=== PATIENT | male | born 1955 | race Caucasian/White ===

== ENCOUNTER → 2016-12-25 | Outpatient (CLI) | payer OTHER ==
[~2016-12-25] MED LIST: ASPI-435 PO; ATOR-26 PO; AVD5 PO; CEPH500C PO; CHOL2000 PO; CYM30 PO; GABA1CAP4 PO; GLCSR10 PO; INSDGIPEN SC; INSUINJ14 SC; INSUINJ4 SC; MDR4 PO; MELO15TA4 PO; METF750T PO; METO1TAB69 PO; NRT/50 PO; NRT25 PO; TICA1TAB PO; TRAM-10 PO; UBIQ1CAP8 PO; VALS-59 PO
--- NOTE | 2016-12-25 15:52 | DIAGNOSTIC IMAGING REPORT ---
RIGHT HAND MIN 3 VIEWS ROUTINE CLINICAL HISTORY: Polyarthritis. COMPARISON: None. DISCUSSION: No fractures are visualized. There are no erosive or destructive changes. There are minor osteoarthritic type changes. There is a 3 mm calcification located at the level of the distal radial ulnar joint. IMPRESSION: Minor degenerative change. No evidence of erosive disease. No acute fractures. Electronically signed by: Dhruv Hernandez M.D. 12/25/2016 3:51 PM Dictated Date/Time: 12/25/2016 3:50 PM
--- NOTE | 2016-12-25 15:53 | DIAGNOSTIC IMAGING REPORT ---
LEFT HAND MIN 3 VIEWS ROUTINE CLINICAL HISTORY: Polyarthritis COMPARISON: None. DISCUSSION: No fractures are visualized. The bony mineralization appears normal. There are minor degenerative changes. There is no erosive disease. IMPRESSION: No acute fractures. No evidence of erosive disease. Minor degenerative changes. Electronically signed by: Dhruv Hernandez M.D. 12/25/2016 3:52 PM Dictated Date/Time: 12/25/2016 3:51 PM
[2016-12-25 16:47] LABS: HEMATOCRIT 46.1 % (42-52); MEAN CELL VOLUME 91.8 fL (80-100); MEAN CORPUSCULAR HEMOGLOBIN 30.3 pg (25-34); MEAN PLATELET VOLUME 10.3 fL (7.4-10.4); PLATELET COUNT 285 K/uL (130-400); RED BLOOD COUNT 5.02 M/uL (4.7-6.1); WHITE BLOOD COUNT 12.18 K/uL (4.8-10.8)
[2016-12-25 17:28] LABS: BASO % 0.2 %; BASO ABS # 0.02 K/uL (0-0.2); BLOOD UREA NITROGEN 17 mg/dl (7-18); COMPLETE YES; EOS % 0.5 %; GIANT PLATELETS 1+; GLUCOSE 181 mg/dl (70-99); IG% 0.3 %; LYMPH % 6.9 %; LYMPH ABS # 0.84 K/uL (1.2-3.4); MONO % 5.3 %; NEUT % 86.8 %; TOXIC GRANULATION 1+
[2016-12-25 17:29] LABS: AST/SGOT 14 U/L (15-37); BUN/CREATININE RATIO 18.5 (10-20); CALCIUM 9.3 mg/dl (8.5-10.1); CARBON DIOXIDE 30 mmol/L (21-32); CHLORIDE 102 mmol/L (98-107); CREATININE 0.89 mg/dl (0.60-1.40); POTASSIUM 4.2 mmol/L (3.5-5.1); SODIUM 139 mmol/L (136-145)
[2016-12-25 17:32] LABS: ALB/GLOB RATIO 1.1 (0.9-2); ALKALINE PHOSPHATASE 85 U/L (45-117); ALT/SGPT 28 U/L (12-78); RHEUMATOID FACTOR < 10.0 U/mL (0-15); TOTAL IRON BINDING CAPACITY 408 mcg/dl (250-450)
[2016-12-26 06:35] LABS: ESTIMATED AVERAGE GLUCOSE 223 mg/dl; HA1C FLAG Normal (Normal)
[2016-12-31 04:48] LABS: ALBUMIN 3.9 G/DL (3.8-4.8); ANTI-CENTROMERE AB <1.0 NEG AI (<1.0 NEG); ANTI-SS-A <1.0 NEG AI (<1.0 NEG); ANTI-SS-B <1.0 NEG AI (<1.0 NEG); CYCLIC CITRULLINATED PEPT IGG <16 UNITS (<20); DNA ds CRITHIDIA NEGATIVE (NEGATIVE); GAMMA GLOBULIN 0.6 G/DL (0.8-1.7); PARVOVIRUS IgG INDEX 2.9 (<0.9); PARVOVIRUS IgM INDEX 0.1 (<0.9); Sm Antibody <1.0 NEG AI (<1.0 NEG); TOTAL PROTEIN 6.6 G/DL (6.2-8.3)
== END | disposition home or self-care (01) ==
LOC: C.RAD1850 15:25
PROVIDERS: ATTEND Internal Medicine Rheumatology
DX: M13.0 Polyarthritis, unspecified (principal); Z79.52 Long term (current) use of systemic steroids; E78.5 Hyperlipidemia, unspecified; I10 Essential (primary) hypertension; E11.9 Type 2 diabetes mellitus without complications

== ENCOUNTER 2017-03-15 13:00 | Emergency (ER) | payer OTHER ==
[~2017-03-15] VITALS: Ht 175.3 cm; Wt 99.4 kg
[~2017-03-15 13:00] MED LIST changes: -ATOR-26 PO; -CEPH500C PO; -CHOL2000 PO; -GABA1CAP4 PO; -INSDGIPEN SC; -MDR4 PO; -MELO15TA4 PO; +METO100T44 PO; -METO1TAB69 PO; -NRT/50 PO; -NRT25 PO; -TRAM-10 PO
[2017-03-15 13:04] VITALS: BP 166/82; PULSE 86; TEMP 36.7; O2SAT 95; Ht 175.3 cm; Wt 99.4 kg
[2017-03-15] MEDS ORDERED: GABA1CAP4 PO (14:00)
[2017-03-15] MEDS ORDERED: MELO15TA4 PO (14:00)
[2017-03-15] MEDS ORDERED: NRT25 PO (14:00)
[2017-03-15] MEDS ORDERED: MDR4 PO (14:14)
[2017-03-15] MEDS ORDERED: ATOR-26 PO (14:14)
[2017-03-15] MEDS ORDERED: INSDGIPEN SC (14:17)
[2017-03-15] MEDS ORDERED: XYLOCAINE 1%/SOD BICARB 20 ML VIAL INFIL ONE (14:45)
[2017-03-15] MEDS ORDERED: CEPH500C PO (15:27)
--- NOTE | 2017-03-15 15:28 | EMERGENCY ROOM VISIT NOTE ---
ED Visit Note First contact with patient: 13:09 CHIEF COMPLAINT: Right Hand laceration HISTORY OF PRESENT ILLNESS: This 51-year-old male patient presents to the emergency department one hour after cutting the right hand while tightening a ratchet strap at home. Patient states initially, bleeding was significant, and describes it as squirting. He suspected he may have cut a blood vessel due to the amount of bleeding he was noticing. Patient states he washed the wound out with peroxide at home, however still has oil on his hands from working on the vehicle. The bleeding has mostly stopped at this time, however continues to ooze blood. Denies weakness or numbness of the hand or fingers. The patient rates the pain as throbbing and 4/10. The patient denies any other injuries. The patient's Tetanus shot is up to date. Patient is considered due to history of diabetes. REVIEW OF SYSTEMS: A 6 system review of systems was completed with positives and pertinent negatives listed in the HPI. ALLERGIES: Clopidogrel, Prasugrel MEDICATIONS: Methylprednisolone, Lantus, aspirin, valsartan, Avodart, NovoLog, glipizide, Glucophage, metoprolol succinate, duloxetine, ubiquinol, "a seizure medication for chest pain" PMH: Hypertension, diabetes, heart disease (6 stents), fibromyalgia, arthritis SOCIAL HISTORY: And lives locally with his . He denies drug, alcohol, tobacco use PHYSICAL EXAM: Vital Signs: Reviewed Nurse's notes, vital signs stable. GENERAL : 61-year-old male, in no acute distress, well-developed, well-nourished. SKIN : There is a 3 cm long laceration on the palmar aspect of the rate hand, proximal to thumb. The edges gape apart with traction. There is no foreign material in the wound and it looks clean. There is minimal bleeding. No deep structures such as tendons, bones, or significant blood vessels are seen in the base of the wound. Normal strength and movement of the fingers and wrist. Capillary refill less than 2 seconds. Normal sensation to light and sharp touch. EMERGENCY DEPARTMENT COURSE: I examined the patient. Verbal consent was obtained to perform the procedure. Using sterile technique the wound was cleansed with Betadine. The area was sterilely draped. 3 ml of 1% buffered lidocaine was used to anesthetize the laceration on the hand. Once the patient was anesthetized, the wound was copiously irrigated under pressure with sterile saline. The wound was explored and was as described above. The laceration was repaired using 4 simple interrupted 5-0 nylon sutures with the wound edges being well approximated. The patient tolerated the procedure well. Hemostasis was achieved. The area was cleaned with sterile saline and dressed with bacitracin ointment and bandage. The patient was discharged home in good condition. DIAGNOSIS: Hand laceration DIFFERENTIAL DIAGNOSIS: Contusion, abrasion, cellulitis DISCHARGE INSTRUCTIONS & TREATMENT: Keep wound clean and dry. Do not allow any crusting or dried blood to accumulate on sutures. If this occurs, use a 1:1 solution of hydrogen peroxide/water on a Q-tip to clean the wound. Use an antibiotic ointment for 3-4 days, then let wound dry. Suture removal in 10-12 days. Return sooner for any signs of infection (increasing redness, swelling, drainage). Ice and elevate for swelling and pain. Ibuprofen 600 mg and Tylenol 1000 mg every 6 hrs for pain. Keep covered when in sun until sutures removed then SPF 50 or higher for one year. Vitamin E oil if desired two weeks after suture removal for reduction of scar. Cephalexin(Keflex) 500mg: Take one pill four times daily for 10 days for your skin infection. All antibiotics can cause diarrhea. If this occurs and you feel worse or it does not resolve in 1-2 days follow up with your doctor or return to the Emergency Department as this could be signs of serious underlying problems. Any medication can cause an allergic reaction, stop the pills immediately and return to the ER for rash, hives, breathing difficulties, or swelling. Problem List Medical Problems: (1) Acute coronary syndrome Status: Resolved (2) Benign hypertension Status: Chronic (3) Cataract Status: Chronic (4) Cataract extraction and insertion of intraocular lens Status: Resolved (5) Coronary artery disease Status: Chronic (6) Diabetes Status: Chronic (7) Diabetes mellitus type 2 Status: Resolved (8) Fusion of posterior lumbar spine Status: Resolved (9) H/O heart valve stenosis Status: Resolved (10) Heart attack Status: Chronic (11) Heart disease Status: Chronic (12) Heart disease Status: Chronic (13) Hypercholesterolemia Status: Chronic (14) Hyperlipemia Status: Chronic (15) Hypertension Status: Chronic (16) Left rotator cuff tear Status: Chronic (17) Placement of stent in coronary artery Status: Resolved (18) Post percutaneous transluminal coronary angioplasty Status: Resolved Surgical Problems: (1) History of back surgery Status: Resolved Current/Historical Medications Scheduled Aspirin (Aspirin 81), 81 MG PO QAM Atorvastatin (Lipitor), 80 MG PO DAILY Cephalexin Monohydrate (Keflex), 500 MG PO QID Duloxetine HCl (Duloxetine HCl), 30 MG PO DAILY Dutasteride (Avodart), 0.5 MG PO DAILY Gabapentin (Gabapentin), 300 MG PO TID Glipizide (Glipizide ER), 10 MG PO BID Insulin Glargine (Lantus Solostar), 32 UNITS SC QPM Meloxicam (Meloxicam), 15 MG PO DAILY Metformin Hcl (Glucophage Er), 750 MG PO HS Metformin Hcl (Glucophage Er), 1,500 MG PO QAM Methylprednisolone (Methylprednisolone), 4 MG PO DIRECTED Metoprolol Succ (Toprol Xl) (Toprol-Xl ), 100 MG PO BID Nortriptyline HCl (Nortriptyline HCl), 25 MG PO DAILY Valsartan (Valsartan), 320 MG PO DAILY Allergies Coded Allergies: Prasugrel (Verified Allergy, Severe, RASH, 03/15/17) Clopidogrel (Verified Allergy, Unknown, rash, 03/15/17) Vital Signs Date Time Temp Pulse Resp B/P (MAP) Pulse Ox O2 Delivery O2 Flow Rate FiO2 03/15/17 13:04 36.7 86 20 166/82 95 Room Air Departure Information Impression Primary Impression: Laceration of right hand Dispostion Home / Self-Care Condition GOOD Prescriptions Cephalexin Monohydrate (Keflex) 500 Mg Cap 500 MG PO QID for 10 Days, #40 CAP Prov: Ashely Prajapati PA-C 03/15/17 Referrals No Doctor, Assigned (PCP) Patient Instructions [facility] Additional Instructions You have received 4 sutures on your right palm. These sutures are NOT dissolvable and WILL need to be removed by a health care provider in 8-10 days. You can return to the Emergency Department or contact your Primary Care Provider to have the sutures removed. Proper wound care is essential for adequate wound healing and infection prevention. You can shower and clean the wound with soap and water. Do not scour over the wound, pat dry with a towel. Do not submerse the wound (i.e. bathe or dish wash) until the sutures have been removed. You can use an antibiotic ointment with a dressing over the wound for the next 3-4 days. After this time you may leave the wound dry and open to the air. If crust develops over the wound you can use a Q-tip to apply a 1:1 peroxide:water solution to clean the wound. Look for signs of infection of the wound including: increased pain, swelling, foul discharge, streaking, or increased temperature. If any of these are noticed you should return to the Emergency Department for further assessment and treatment. As with any laceration you may have received nerve damage to the surrounding tissues. This damage may or may not be permanent. You should keep the area covered with sunscreen for the first 6 months to 1 year when at risk for exposure to help minimize scarring. You can also use scar reducing creams or Vitamin E oil to help minimize scarring. Cephalexin(Keflex) 500mg: Take one pill four times daily for 10 days for your skin infection. All antibiotics can cause diarrhea. If this occurs and you feel worse or it does not resolve in 1-2 days follow up with your doctor or return to the Emergency Department as this could be signs of serious underlying problems. Any medication can cause an allergic reaction, stop the pills immediately and return to the ER for rash, hives, breathing difficulties, or swelling. For pain control, you can use the following [id number]-[id number] medicines (if >12 yo): - Regular strength (325mg/tab) Tylenol (acetaminophen) 2 tabs every 4-6 hours as needed. Do not exceed 12 tablets in a 24 hour period. Avoid taking more than 4 grams (4000 mg) of Tylenol per day. This includes any other sources of acetaminophen you may take on a regular basis. - Regular strength (200 mg/tab) Advil (ibuprofen) 1-2 tabs every 4-6 hours as needed. Do not exceed a dose of 3200 mg per day. Return to the emergency department if your symptoms worsen despite treatment course outlined above. Problem Qualifiers Primary Impression: Laceration of right hand Encounter type: initial encounter Foreign body presence: without foreign body Qualified Codes: S61.411A - Laceration without foreign body of right hand , initial encounter
[2017-06-03] MEDS ORDERED: NRT/50 PO (09:16)
[2017-06-03] MEDS ORDERED: CHOL2000 PO (09:16)
== END 2017-03-15 15:42 | disposition home or self-care (01) ==
LOC: C.EDB 13:02 → C.EDD 15:42
DX: S61.411A Laceration without foreign body of right hand, initial encounter (principal); W45.8XXA Other foreign body or object entering through skin, initial encounter; Y92.019 Unspecified place in single-family (private) house as the place of occurrence of the external cause; E11.9 Type 2 diabetes mellitus without complications; I10 Essential (primary) hypertension; I51.9 Heart disease, unspecified; I25.2 Old myocardial infarction; I25.10 Atherosclerotic heart disease of native coronary artery without angina pectoris; E78.00 Pure hypercholesterolemia, unspecified; M79.7 Fibromyalgia; E78.5 Hyperlipidemia, unspecified; M19.90 Unspecified osteoarthritis, unspecified site; Z79.4 Long term (current) use of insulin; Z79.82 Long term (current) use of aspirin; Z79.899 Other long term (current) drug therapy

== ENCOUNTER → 2017-04-24 | Outpatient (CLI) | payer OTHER ==
[~2017-04-24] MED LIST changes: +ATOR-26 PO; +CHOL2000 PO; +GABA1CAP4 PO; +INSDGIPEN SC; -INSUINJ14 SC; -INSUINJ4 SC; +MDR4 PO; +MELO15TA4 PO; -METO100T44 PO; +METO1TAB69 PO; +NRT/50 PO; +NRT25 PO; -TICA1TAB PO; +TRAM-10 PO; -UBIQ1CAP8 PO
[2017-04-25 07:40] LABS: ESTIMATED AVERAGE GLUCOSE 220 mg/dl; HA1C FLAG Normal (Normal)
== END | disposition home or self-care (01) ==
LOC: C.LABPVFM 14:48
PROVIDERS: ATTEND Nurse Practitioner Family
DX: E11.9 Type 2 diabetes mellitus without complications (principal)

== ENCOUNTER 2017-06-14 08:42 | Day surgery (SDC) | payer OTHER ==
--- NOTE | 2017-06-03 09:48 | PAT Medication Instructions ---
Service Date Jun 03, 2017. Current Home Medication List Aspirin (Aspirin 81), 81 MG PO QAM Atorvastatin (Lipitor), 80 MG PO QPM Cholecalciferol (Vitamin D3), 1 CAP PO QP Duloxetine HCl (Duloxetine HCl), 30 MG PO QAM Gabapentin (Gabapentin), 1,200 MG PO HS Glipizide (Glipizide ER), 10 MG PO BID Insulin Glargine (Lantus Solostar), 32 UNITS SC QPM Meloxicam (Meloxicam), 15 MG PO DAILY PRN for Pain Metformin Hcl (Glucophage Er), 750 MG PO HS Metformin Hcl (Glucophage Er), 1,500 MG PO QAM Methylprednisolone (Methylprednisolone), 4 MG PO QAM Metoprolol Succ (Toprol Xl) (Toprol-Xl ), 100 MG PO BID Nortriptyline HCl (Nortriptyline HCl), 1 TAB PO HS Valsartan (Valsartan), 320 MG PO QAM Medication Instructions For Your Scheduled Surgery -Instructions to be given for: Aspirin (Aspirin 81), 81 MG PO QAM -Check with your surgeon for the following medications: Meloxicam (Meloxicam), 15 MG PO DAILY PRN for Pain - Hold the following medications 48 hours prior to surgery: Metformin Hcl (Glucophage Er), 1,500 MG PO QAM Metformin Hcl (Glucophage Er), 750 MG PO HS - Hold the following medications the morning of surgery: Valsartan (Valsartan), 320 MG PO QAM Glipizide (Glipizide ER), 10 MG PO BID - Take the following medications the morning of surgery with a sip of water: Metoprolol Succ (Toprol Xl) (Toprol-Xl ), 100 MG PO BID Methylprednisolone (Methylprednisolone), 4 MG PO QAM Duloxetine HCl (Duloxetine HCl), 30 MG PO QAM - Take the following medications as scheduled the night before surgery: Nortriptyline HCl (Nortriptyline HCl), 1 TAB PO HS Metoprolol Succ (Toprol Xl) (Toprol-Xl ), 100 MG PO BID Gabapentin (Gabapentin), 1,200 MG PO HS Glipizide (Glipizide ER), 10 MG PO BID Cholecalciferol (Vitamin D3), 1 CAP PO QPM Atorvastatin (Lipitor), 80 MG PO QPM Insulin Glargine (Lantus Solostar), 32 UNITS SC QPM If you have any questions please call us at [phone] or [phone] or [phone]
[2017-06-03 10:17] LABS: BASO % 0.4 %; BASO ABS # 0.04 K/uL (0-0.2); COMPLETE YES; EOS % 1.6 %; HEMATOCRIT 46.7 % (42-52); IG% 0.4 %; LYMPH % 11.7 %; LYMPH ABS # 1.31 K/uL (1.2-3.4); MEAN CELL VOLUME 91.9 fL (80-100); MEAN CORPUSCULAR HEMOGLOBIN 31.5 pg (25-34); MEAN CORPUSCULAR HGB CONC 34.3 g/dl (32-36); MEAN PLATELET VOLUME 9.8 fL (7.4-10.4); NEUT % 76.9 %; PLATELET COUNT 306 K/uL (130-400); RED BLOOD COUNT 5.08 M/uL (4.7-6.1); WHITE BLOOD COUNT 11.19 K/uL (4.8-10.8)
[2017-06-03 10:27] LABS: PARTIAL THROMBOPLASTIN RATIO 1.1; PROTHROMBIN TIME (PATIENT) 10.9 SECONDS (9.0-12.0)
--- NOTE | 2017-06-03 10:28 | DIAGNOSTIC IMAGING REPORT ---
CHEST 2 VIEWS ROUTINE CLINICAL HISTORY: 61 years-old Male presenting with preop shoulder surgery. TECHNIQUE: PA and lateral views of the chest were obtained. COMPARISON: 07/15/2014. FINDINGS: Cardiomediastinal silhouette normal. Cardiac stents noted. Lungs and pleural spaces clear. Osseous structures normal. Upper abdomen normal. IMPRESSION: 1. No acute cardiopulmonary disease. Electronically signed by: Jacinto Horn M.D. 06/03/2017 10:27 AM Dictated Date/Time: 06/03/2017 10:26 AM
[2017-06-03 11:07] LABS: BUN/CREATININE RATIO 20.1 (10-20); CALCIUM 9.6 mg/dl (8.5-10.1); CREATININE 0.91 mg/dl (0.60-1.40); POTASSIUM 4.4 mmol/L (3.5-5.1)
--- NOTE | 2017-06-13 17:20 | HISTORY & PHYSICAL EXAMINATION ---
DATE OF ADMISSION: 06/14/2017 CHIEF COMPLAINT: Small rotator cuff tear of the left shoulder with severe external impingement. HISTORY OF PRESENT ILLNESS: Juan is a very pleasant 61-year-old male who has been having chronic left shoulder pain. I got an MRI 3 years ago and diagnosed him with a small cuff tear. Unfortunately, he had a heart attack and was placed on blood thinners and then due to health reasons, he was unable to have surgery. Unfortunately, his shoulder pain continued to worsen. I sent him for a repeat MRI, which showed no progression of the cuff tear. He was having continued pain and elected to undergo arthroscopy. PAST MEDICAL HISTORY: Significant for AR in December of 2009, osteoarthritis, hiatal hernia and insulin-dependent diabetes. MEDICATIONS: Include atorvastatin 80 mg daily, aspirin 81 mg daily, metformin 750 mg at bedtime and 1500 mg in the morning, glipizide 10 mg twice a day, Lantus 32 units every evening, metoprolol 100 mg daily, valsartan 325 mg daily, gabapentin 600 mg at bedtime, and Medrol 1 mg daily. ALLERGIES: NITROGLYCERIN SOLUTION, PLAVIX, OXYCODONE AND HYDROCODONE. PAST SURGICAL HISTORY: Significant for cardiac stent placement in 2013. SOCIAL HISTORY: He denies any tobacco, alcohol or IV drug use. He tries to remain active. REVIEW OF SYSTEMS: He complains of left shoulder pain. All other pertinent review of systems are negative. PHYSICAL EXAMINATION: GENERAL: He is awake, alert and oriented x3. He is in no apparent distress. He is very pleasant. HEENT: Pupils are equal, round and reactive to light. Extraocular motion intact. Oral mucosa is pink and moist. HEART: Regular rate per radial pulse. LUNGS: Pilar symmetrically bilaterally with no audible breath sounds. ABDOMEN: Soft, nontender, and nondistended. MUSCULOSKELETAL: He has decreased active motion of about 130 degrees of forward flexion and abduction. He has 4/5 muscle strength with full can testing and external rotation. Mild tenderness to palpation in the far anterior subacromial space. No AC pain and no biceps pain. IMAGING STUDIES: MRI of the left shoulder done recently showed severe external impingement with a small far anterior bursal sided rotator cuff tear. IMPRESSION: Severe external impingement with small cuff tear. PLAN: We will do a left shoulder arthroscopy and small rotator cuff repair. Postoperatively, he will be placed in an arm sling and discharged to home on oral pain medications.
[~2017-06-14] VITALS: Ht 175.3 cm; Wt 94.6 kg
[~2017-06-14 08:42] MED LIST changes: +ACETAMINOPHEN 500 MG TAB PO SCH; -AVD5 PO; +CEFAZOLIN 2000 MG/60 ML D5W 60 ML IV SCH; +LACTATED RINGER'S 1000ML 1,000 ML IV SCH; +LACTATED RINGER'S 1000ML IV SCH; -NRT25 PO; +ROPIVACAINE 0.5% 5 MG/ML 30 ML VIAL ONE; -TRAM-10 PO
[2017-06-14 09:05] VITALS: BP 149/84; PULSE 87; TEMP 36.6; O2SAT 98; Ht 175.3 cm; Wt 94.6 kg
--- NOTE | 2017-06-14 09:17 | History & Physical Bridge Note ---
H&P Re-Evaluation Bridge Note: I have examined the patient, reviewed the History & Physical and in the interval since the performance of the History & Physical I have noted the following changes of clinical significance: No changes noted
[2017-06-14] MEDS ORDERED: MIDAZOLAM HCL 1 MG/ML 2ML VIAL ONE (09:39)
[2017-06-14] MEDS ORDERED: FENTANYL CITRATE INJ 50 MCG/1 ML 2 ML VIAL ONE (09:40)
[2017-06-14] MEDS ORDERED: BUPIVACAINE/EPINEPHRINE 0.5% MPF 1:200,000 30 ML VIAL ONE (09:50)
[2017-06-14] MEDS ORDERED: EpINEphrine HCL INJ 1 MG/ML 5ML SYRINGE ONE (09:51)
[2017-06-14] MEDS ORDERED: ATROPINE SULFATE 0.1 MG/ML 5ML SYR IV PRN ×3 (10:30→11:15)
[2017-06-14] MEDS ORDERED: ONDANSETRON INJ 2 MG/ML 2 ML VIAL IV PRN ×4 (10:30→12:30)
[2017-06-14] MEDS ORDERED: HYDROmorphone INJ 1 MG/ML SYR IV PRN ×2 (10:30→11:15)
[2017-06-14] MEDS ORDERED: EpHEDrine SULFATE INJ 50 MG/ML AMP IV PRN ×3 (10:30→11:15)
[2017-06-14] MEDS ORDERED: ONDANSETRON INJ 2 MG/ML 2 ML VIAL ONE (11:15)
[2017-06-14] MEDS ORDERED: PHENYLEPHRINE 100MCG/ML 5ML SYR IV PRN (11:15)
[2017-06-14] MEDS ORDERED: PROPOFOL IV EMULSION 10 MG/ML 20 ML VIAL IV ONE ×2 (11:15→11:16)
[2017-06-14] MEDS ORDERED: LIDOCAINE HCL 2% 2 ML VIAL (20MG/ML) ONE (11:15)
[2017-06-14] MEDS ORDERED: PHENYLEPHRINE HCL INJ 10 MG/ML VIAL ONE (11:24)
--- NOTE | 2017-06-14 12:06 | [facility] Post Operative Brief Note ---
Immediate Operative Summary Operative Date Jun 14, 2017. Pre-Operative Diagnosis Small rotator cuff tear left shoulder with severe external impingement. Post-Operative Diagnosis Same plus AC joint arthritis. Procedure(s) Performed Left shoulder arthroscopy, acromioplasty, distal clavicle resection, biceps tenodesis. Surgeon Dr. Alvarado Christmas Tree Farmer Surgeon(s) Ivan Templeton, PAC Estimated Blood Loss 10 ml Findings as above Specimens None. Complication(s) None Disposition Recovery Room / PACU
[2017-06-14] MEDS ORDERED: TRAM-10 PO (12:19)
[2017-06-14] MEDS ORDERED: SODIUM CHLORIDE 0.9% 1000ML 1,000 ML IV SCH (12:21)
--- NOTE | 2017-06-14 12:21 | Discharge Instructions ---
Discharge Instructions Date of Service Jun 14, 2017. Admission Reason for Admission: Left Shoulder Rotator Cuff Tear Discharge Discharge Diagnosis / Problem: SAME ABOVE Discharge Goals Goal(s): Decrease discomfort, Improve function Activity Recommendations Activity Limitations: as noted below Lifting Limitations: gradually increase as tolerated Exercise/Sports Limitations: gradually increase as tolerated Driving or Machine Use: WHEN OUT OF THE SLING AND OFF OF TRAMADOL . Instructions / Follow-Up Instructions / Follow-Up MEDICATIONS: * Resume previous medications unless instructed otherwise by your surgeon. * Always take pain medication on a full stomach or with food to avoid upset stomach. * Do not drink alcohol or drive while taking narcotics. * Ibuprofen or Tylenol may be taken if narcotic not needed. SPECIAL CARE INSTRUCTIONS: __ None _X_ Keep extremity elevated and iced x 48 hours; apply ice 20-30 minutes 8-10 times/day. May remove at night. _X_ Sling (WEAR NEEDED FOR COMFORT) __24 hrs/day __ Remove at night __ Shoulder Immobilizer __ 24 hrs/day __ Remove at night _X_ Dressing __ Maintain until seen in office, may shower with plastic over site _X_ Remove dressings in 24-48 hours and then may shower _X_ Cover incisions with band-aids after showering _X_ Do not remove steri-strips (THEY ARE IN THE ARMPIT. THEY MAY FALL OFF ON THEIR OWN) Call physician if chills or temperature rises above 102 degrees or pain unrelieved by prescribed pain medications at . . Current Hospital Diet Patient's current hospital diet: Discharge Diet Recommended Diet: Regular Diet Fluid Restriction: None Procedures Procedures Performed: Left shoulder arthroscopy, acromioplasty, distal clavicle resection, biceps tenodesis. Pending Studies Studies pending at discharge: no Laboratory Results Hemoglobin A1c Test 04/24/17 14:55 Range/Units Estimated Average Glucose 220 mg/dl Hemoglobin A1c 9.3 H 4.5-5.6 % Work Instructions Return To Work: after follow-up Medical Emergencies . Who to Call and When: Medical Emergencies: If at any time you feel your situation is an emergency, please call 911 immediately. . Non-Emergent Contact Non-Emergency issues call your: Primary Care Provider Call Non-Emergent contact if: you have a fever, temperature is above 101.5 . "Provider Documentation" section prepared by Franklyn Templeton. . VTE Core Measure Inpt VTE Proph given/why not?: Treatment not indicated
[2017-06-14] MEDS ORDERED: TRAMADOL HCL 50 MG TAB PO PRN (12:30)
--- NOTE | 2017-06-14 12:32 | OPERATIVE REPORT ---
DATE OF OPERATION: 06/14/2017 PREOPERATIVE DIAGNOSES: Severe external impingement with possible bursal sided cuff tear and acromioclavicular joint arthritis of the left shoulder. POSTOPERATIVE DIAGNOSES: Severe external impingement without rotator cuff tear, acromioclavicular joint arthritis and biceps tendinopathy. PROCEDURE: Left shoulder diagnostic arthroscopy with limited debridement, acromioplasty, distal clavicle resection, open subpectoral biceps tenodesis. SURGEON: Dr. Hua Alvarado. AVIATION SAFETY TECHNICIAN: Ivan Templeton PA-C, whose assistance was necessary for positioning the arm and helping with instrumentation. ANESTHESIA: General with a left interscalene nerve block. COMPLICATIONS: None. CONDITION: Stable to PACU. INDICATIONS: Juan is a pleasant 61-year-old male who has been having a several year history of left shoulder pain. MRI and clinical examination were diagnostic for severe external impingement with possible small bursal sided cuff tear. After failing years of conservative treatment, he elected to undergo arthroscopy. DESCRIPTION OF PROCEDURE: On 06/14/2017, he arrived at [facility] for the above procedure. He was seen in the preoperative holding area and the operative extremity was identified and signed. He was given her preoperative antibiotics and a left interscalene nerve block. He was taken back to the operating room, laid on the table in supine position and put under general anesthesia. He was then put into the beachchair position. The left shoulder was prepped and draped in sterile fashion. Time-out was done and the patient and operative extremity was properly identified. A scope was introduced in the posterior portal. Diagnostic arthroscopy showed no cartilage damage to the humeral head or the glenoid. There was a little fraying of the anterior labrum. There was some fraying of the biceps tendon. The biceps tendon was red on the dorsal aspect. The rotator cuff looked okay from the articular side. An anterior portal was made, a shaver was used to do a limited debridement of the intraarticular structures and the biceps tendon was arthroscopically tenotomized. The scope was then put into the subacromial space. A lateral portal was made. A shaver was used to do a complete subacromial and subdeltoid bursectomy. An ablator was used to tease the coracoacromial ligament off the undersurface of the acromion and a 5-0 randall was used to complete an acromioplasty of a very large Bigliani type 3 acromion. A shaver was used to remove any excess debris and attention was turned to the rotator cuff. There was some tearing of the bursa in the area of impingement, but there was no tearing of the rotator cuff. A shaver was used to continue to debride back the bursa. The rotator cuff was examined with a spinal needle to see if there was any interstitial tears, but I did not find any on my exam. Attention was turned to the distal clavicle. The distal clavicle looked very arthritic. Through an anterior portal, a shaver and ablator were used to skeletonize this clavicle. A 5-0 randall was then used to resect the distal 5 mm from the clavicle. Complete resection was checked under direct visualization. A shaver was used to remove any excess debris and attention was turned to the biceps tendon. A small incision was made over the inferior border of the pec major. Dissection was taken down through the fascia and long head of the biceps tendon was delivered out of the wound. The tendon was then whipstitched at the anticipated level of tenodesis and the remainder of the tendon was discarded. An Arthrex FiberLoop suture was used to whipstitch the tendon at the anticipated level of tenodesis. The remainder of the tendon was discarded. A 6.5 mm hole was drilled in the bicipital groove and the biceps tendon was tenodesed with an Arthrex biceps button that was passed through the posterior cortex in a tension slide technique to deliver the tendon into the 6 mm hole. This gave good fixation. The wound was then irrigated and closed with 3-0 Vicryl and running 3-0 Monocryl. Steri-strips were placed. Portal sites were closed with 3-0 nylon. He was then placed in a soft dressing and a regular arm sling. He was then extubated, transferred to a litter and taken to the postanesthesia care unit in stable condition. He tolerated the procedure well. I attest to the content of the Intraoperative Record and any orders documented therein. Any exception s are noted below.
[2017-06-14 13:00] VITALS: BP 148/76; PULSE 71; TEMP 36.5; O2SAT 97
--- NOTE | 2017-06-14 13:01 | Anesthesiology Progress Note ---
Anesthesia Post Op Note Date & Time Jun 14, 2017 at 13:01 Vital Signs Pain Intensity: 0 Vital Signs Past 12 Hours Date Time Temp Pulse Resp B/P (MAP) Pulse Ox O2 Delivery O2 Flow Rate FiO2 06/14/17 12:55 36.0 74 16 146/79 98 Room Air 06/14/17 12:50 146/82 06/14/17 12:50 146/82 06/14/17 12:49 75 15 06/14/17 12:49 75 15 06/14/17 12:49 75 15 92 06/14/17 12:49 75 15 92 06/14/17 12:46 144/84 06/14/17 12:46 144/84 06/14/17 12:44 76 14 06/14/17 12:44 77 14 92 06/14/17 12:44 77 14 92 06/14/17 12:44 76 14 06/14/17 12:40 174/90 06/14/17 12:40 174/90 06/14/17 12:39 74 16 06/14/17 12:39 74 16 99 06/14/17 12:39 74 16 99 06/14/17 12:39 74 16 06/14/17 12:38 77 19 100 06/14/17 12:38 76 19 06/14/17 12:36 157/72 06/14/17 12:33 73 17 99 06/14/17 12:33 73 17 06/14/17 12:31 165/75 06/14/17 12:28 79 17 99 06/14/17 12:28 79 17 06/14/17 12:25 157/81 06/14/17 12:23 74 17 99 06/14/17 12:23 75 17 06/14/17 12:20 158/90 06/14/17 12:18 36.1 77 16 152/78 99 Oxymask 10 06/14/17 12:18 81 18 06/14/17 12:18 83 18 152/78 97 06/14/17 09:05 36.6 87 20 149/84 (105) 98 Room Air Notes Mental Status: alert / awake / arousable, participated in evaluation Pt Amnestic to Procedure: Yes Nausea / Vomiting: adequately controlled Pain: adequately controlled Airway Patency, RR, SpO2: stable & adequate BP & HR: stable & adequate Hydration State: stable & adequate Anesthetic Complications: no major complications apparent
[2017-06-14 13:30] VITALS: BP 139/74; PULSE 74; TEMP 36.4; O2SAT 95
[2017-06-14 14:06] VITALS: BP 136/72; PULSE 78; O2SAT 91
== END 2017-06-14 14:12 | disposition home or self-care (01) ==
LOC: C.ACU 08:42
PROVIDERS: ATTEND Orthopaedic Surgery
DX: M75.42 Impingement syndrome of left shoulder (principal); M75.102 Unspecified rotator cuff tear or rupture of left shoulder, not specified as traumatic; M19.90 Unspecified osteoarthritis, unspecified site; E11.9 Type 2 diabetes mellitus without complications; I25.2 Old myocardial infarction; Z79.4 Long term (current) use of insulin; Z79.82 Long term (current) use of aspirin

== ENCOUNTER → 2017-08-28 | Outpatient (CLI) | payer OTHER ==
[~2017-08-28] MED LIST changes: -ACETAMINOPHEN 500 MG TAB PO SCH; -CEFAZOLIN 2000 MG/60 ML D5W 60 ML IV SCH; -CYM30 PO; -LACTATED RINGER'S 1000ML 1,000 ML IV SCH; -LACTATED RINGER'S 1000ML IV SCH; +METO100T44 PO; -METO1TAB69 PO; -ROPIVACAINE 0.5% 5 MG/ML 30 ML VIAL ONE; +TRAM-10 PO
[2017-08-28 13:20] LABS: BLOOD UREA NITROGEN 16 mg/dl (7-18); BUN/CREATININE RATIO 15.8 (10-20); CALCIUM 9.1 mg/dl (8.5-10.1); CARBON DIOXIDE 26 mmol/L (21-32); CHLORIDE 104 mmol/L (98-107); CREATININE 1.04 mg/dl (0.60-1.40); GLUCOSE 333 mg/dl (70-99); POTASSIUM 4.4 mmol/L (3.5-5.1); SODIUM 135 mmol/L (136-145)
[2017-08-28 13:34] LABS: ESTIMATED AVERAGE GLUCOSE 229 mg/dl; HA1C FLAG Normal (Normal)
[2017-08-28 13:38] LABS: BETA-HYDROXYBUTYRATE 1.58 mg/dL (0.2-2.81)
== END | disposition home or self-care (01) ==
LOC: C.LABPVFM 11:11
PROVIDERS: ATTEND Nurse Practitioner Family
DX: I10 Essential (primary) hypertension (principal); E11.9 Type 2 diabetes mellitus without complications

== ENCOUNTER 2017-12-05 15:02 | Observation (INO) | payer OTHER ==
[~2017-12-05] VITALS: Ht 175.3 cm; Wt 90.5 kg
[~2017-12-05 15:02] MED LIST changes: +GABA-1219 PO; -GABA1CAP4 PO; -GLCSR10 PO; +MELO-83 PO; -MELO15TA4 PO; -METF750T PO
[2017-12-05 15:40] LABS: HEMATOCRIT 44.4 % (42-52); MEAN CELL VOLUME 93.5 fL (80-100); MEAN CORPUSCULAR HEMOGLOBIN 31.6 pg (25-34); MEAN CORPUSCULAR HGB CONC 33.8 g/dl (32-36); MEAN PLATELET VOLUME 10.7 fL (7.4-10.4); PLATELET COUNT 245 K/uL (130-400); RED CELL DISTRIBUTION WIDTH CV 12.5 % (11.5-14.5); RED CELL DISTRIBUTION WIDTH SD 42.4 fL (36.4-46.3); WHITE BLOOD COUNT 8.01 K/uL (4.8-10.8)
[2017-12-05 15:52] LABS: ALBUMIN 3.9 gm/dl (3.4-5.0); CREATININE 0.93 mg/dl (0.60-1.40); POTASSIUM 4.8 mmol/L (3.5-5.1)
[2017-12-05 15:54] LABS: TOTAL PROTEIN 6.9 gm/dl (6.4-8.2)
[2017-12-05 16:02] LABS: CKMB 1.8 ng/ml (0.5-3.6)
[2017-12-05 16:10] VITALS: O2SAT 96
--- NOTE | 2017-12-05 16:25 | DIAGNOSTIC IMAGING REPORT ---
CHEST ONE VIEW PORTABLE CLINICAL HISTORY: Atypical chest pain COMPARISON STUDY: June 03, 2017 FINDINGS: The cardiac and mediastinal contours are normal. There is no evidence of focal pulmonary consolidation. There is no evidence of failure. No pleural effusions are visualized.[ IMPRESSION: No active disease in the chest. Electronically signed by: Dhruv Hernandez M.D. 12/05/2017 4:23 PM Dictated Date/Time: 12/05/2017 4:23 PM
[2017-12-05] MEDS ORDERED: GLCSR10 PO (16:43)
[2017-12-05] MEDS ORDERED: METF750T PO ×2 (16:43)
[2017-12-05] MEDS ORDERED: ALUMINUM/MAGNESIUM SUSP 30 ML UDC PO STA (16:44)
[2017-12-05] MEDS ORDERED: LIDOCAINE HCL 2% VISC SOLN 20 ML UDC PO STA (16:44)
[2017-12-05] MEDS ORDERED: INSU100I23 SC (16:47)
[2017-12-05] MEDS ORDERED: TPRSR/100 PO (16:47)
[2017-12-05] MEDS ORDERED: ASPI81TA28 PO (16:47)
[2017-12-05] MEDS ORDERED: ALUMINUM/MAGNESIUM/SIMETH (MAALOX MAX) 30 ML UDC PO PRN (18:00)
[2017-12-05] MEDS ORDERED: MAGNESIUM HYDROXIDE SUSP 30 ML UDC PO PRN (18:00)
[2017-12-05] MEDS ORDERED: NITROGLYCERIN 0.4 MG SL PER TAB CHARGE SL PRN (18:00)
[2017-12-05] MEDS ORDERED: ACETAMINOPHEN 325 MG TAB PO PRN (18:00)
[2017-12-05] MEDS ORDERED: ONDANSETRON INJ 2 MG/ML 2 ML VIAL IV PRN (18:00)
--- NOTE | 2017-12-05 18:21 | History and Physical ---
History & Physical Date & Time of Service: Dec 05, 2017 at 18:14 Chief Complaint: Chest Pain Primary Care Physician: Leonor Canales History of Present Illness Mr. Ayers is a 62-year-old male got known history of coronary disease and poorly controlled diabetes. The patient's had a history of at least 5 stents that date back to 2007 and his coronary arteries. In he had 2 drug-eluting stent in his RCA, 2011 a stent in the LAD and circumflex in 2013 a stent in his LAD. Patient states that he typically does not have any changes in cardiac enzymes or EKGs or stress tests but still ends up with MIs and stents. The patient most recently had an outpatient stress echocardiogram with Dr. Arteaga on November 05, 2017 which was unremarkable for regional wall motion abnormalities or other abnormalities reaching 80% maximum predicted heart rate The patient had a stuttering history of chest pain worse than usual. The patient states it is worse then when he has had his stents in the past he states that it is associate with shortness of breath he states that he has also had some reflux symptoms but he feels he can discern the difference between the 2 he did have a GI cocktail in the ER with some improvement of his discomfort but he feels that this discomfort in his chest is reminiscent of his angina. He cannot make it worse nor better it is not associate with nausea or diaphoresis it is central in location and pressure in description Family History Diabetes mellitus FH: cancer FH: heart disease Hypertension Seizures Social History Smoking Status: Never Smoker Marital Status: Occupational Status: retired Allergies Coded Allergies: Prasugrel (Verified Allergy, Severe, RASH, 03/15/17) Clopidogrel (Verified Allergy, Unknown, rash, 03/15/17) Nitroglycerin (Verified Adverse Reaction, Unknown, HEADACHE, 06/03/17) Oxycodone (Verified Adverse Reaction, Unknown, UPSET STOMACH, 06/14/17) Home Medications Scheduled Aspirin (Aspirin Ec), 81 MG PO QAM Atorvastatin (Lipitor), 80 MG PO HS Cholecalciferol (Vitamin D3), 2,000 INTER.UNIT PO DAILY Gabapentin (Gabapentin), 600 MG PO HS Glipizide (Glipizide ER), 10 MG PO BID Insulin Glargine (Basaglar Kwikpen), 32 UNITS SC HS Metformin Hcl (Glucophage Er), 750 MG PO HS Metformin Hcl (Glucophage Er), 1,500 MG PO QAM Methylprednisolone (Methylprednisolone), 2 MG PO QAM Metoprolol Succinate (Metoprolol Succinate ER), 100 MG PO BID Nortriptyline HCl (Nortriptyline HCl), 50 MG PO HS Valsartan (Valsartan), 320 MG PO QAM Scheduled PRN Meloxicam (Meloxicam), 15 MG PO DAILY PRN for Pain Review of Systems ROS: well nourished well developed. No double vision blurry vision No problems with speech or swallowing Significant central chest pressure No Wheezing or breathing issues No abdominal pain nausea vomiting diarrhea complaints of reflux symptoms No burning urine urine frequency or changes in color No focal joint pain or muscle pain No skin rashes or oral lesions No unusual bruising or bleeding No focused back pain or numbness or loss of strength No changes in memory or confusion Physical Exam Vital Signs Date Time Temp Pulse Resp B/P (MAP) Pulse Ox O2 Delivery O2 Flow Rate FiO2 12/05/17 16:10 95 Room Air 12/05/17 16:10 58 20 178/ 96 Room Air 12/05/17 16:08 64 12/05/17 15:32 96 Room Air 12/05/17 15:32 96 Room Air 12/05/17 15:17 96 Room Air 12/05/17 15:11 36.7 65 20 196/97 96 Room Air General Appearance: WD/WN, no apparent distress Head: normocephalic, atraumatic Eyes: normal inspection, sclerae normal Neck: supple, thyroid normal, no JVD Respiratory/Chest: chest non-tender, lungs clear, normal breath sounds Cardiovascular: regular rate, rhythm, no murmur Abdomen/GI: normal bowel sounds, non tender (He has no epigastric tenderness although is with a large abdomen), soft Back: normal inspection, no CVA tenderness Extremities/Musculoskelatal: no pedal edema, normal range of motion Neurologic/Psych: alert, oriented x 3 Skin: normal color, warm/dry, no rash Diagnostics Laboratory Results Results Past 24 Hours Test 12/05/17 15:25 12/05/17 15:35 Range/Units White Blood Count 8.01 4.8-10.8 K/uL Red Blood Count 4.75 4.7-6.1 M/uL Hemoglobin 15.0 14.0-18.0 g/dL Hematocrit 44.4 42-52 % Mean Corpuscular Volume 93.5 80-100 fL Mean Corpuscular Hemoglobin 31.6 25-34 pg Mean Corpuscular Hemoglobin Concent 33.8 32-36 g/dl RDW Standard Deviation 42.4 36.4-46.3 fL RDW Coefficient of Variation 12.5 11.5-14.5 % Platelet Count 245 130-400 K/uL Mean Platelet Volume 10.7 7.4-10.4 fL Prothrombin Time 10.3 9.0-12.0 SECONDS Prothromb Time International Ratio 1.0 0.9-1.1 Activated Partial Thromboplast Time 24.0 21.0-31.0 SECONDS Partial Thromboplastin Ratio 0.9 Sodium Level 136 136-145 mmol/L Potassium Level 4.8 3.5-5.1 mmol/L Chloride Level 101 98-107 mmol/L Carbon Dioxide Level 30 21-32 mmol/L Anion Gap 4.0 3-11 mmol/L Blood Urea Nitrogen 12 7-18 mg/dl Creatinine 0.93 0.60-1.40 mg/dl Est Creatinine Clear Calc Drug Dose 90.1 ml/min Estimated GFR () 100.2 Estimated GFR (Non- 86.5 BUN/Creatinine Ratio 12.3 10-20 Random Glucose 324 70-99 mg/dl Calcium Level 9.0 8.5-10.1 mg/dl Total Bilirubin 0.7 0.2-1 mg/dl Aspartate Amino Transf (AST/SGOT) 19 15-37 U/L Alanine Aminotransferase (ALT/SGPT) 34 12-78 U/L Alkaline Phosphatase 83 45-117 U/L Total Creatine Kinase 142 39-308 U/L Creatine Kinase MB 1.8 0.5-3.6 ng/ml Creatine Kinase MB Ratio 1.3 0-3.0 Total Protein 6.9 6.4-8.2 gm/dl Albumin 3.9 3.4-5.0 gm/dl Globulin 3.0 2.5-4.0 gm/dl Albumin/Globulin Ratio 1.3 0.9-2 Beta-Hydroxybutyric Acid 1.41 0.2-2.81 mg/dL Bedside Troponin I < 0.030 0-0.045 ng/ml CXR normal Normal EKG (No acute changes on EKG) Impression Assessment and Plan 62-year-old insulin requiring diabetic male who presents with chest pain reminiscent of his previous angina and stenting procedures his last hemoglobin A1c is 9.6 showing poor control of his diabetes Chest pain patient will be ruled out with troponins since he made most recently had a stress test in October will not order stress test but have a cardiac consultation to determine whether they wish to proceed with more diagnostic testing such as a nuclear stress or cardiac cath. The patient is convinced that this is similar to his previous problems which resulted in a cath and stent. The patient however does not have any biomarkers or EKG suggestion of it. Likewise he has concurrent reflux disease and has never had an endoscopy his symptoms may be related to reflux however he would need to have his cardiac status cleared prior to anesthesia for an EGD With regard to reflux will begin him on a proton pump inhibitor and Carafate Regarding his coronary disease and hypertension maintain an aspirin a statin and ARB and metoprolol Diabetic CARE we will hold his metformin we will reduce his Lantus to 16 units and employ sliding scale in case he is n.p.o. in the morning for any type of diagnostic testing patient takes Neurontin for diabetic neuropathy Patient takes nortriptyline for sleep DVT prevention will be based upon heparin in case we need to the Dry Cell Tester this will be transitioned easily or to heparin infusion rather than trying to transition from a Gonzales apparent Resuscitation Status VTE Prophylaxis Will order VTE Prophylaxis: Yes
[2017-12-05] MEDS ORDERED: IV FLUIDS COMPLETED PRN (18:30)
[2017-12-05 20:00] VITALS: BP 171/88; PULSE 57; TEMP 37; BMI 30.0
[2017-12-05 20:10] VITALS: BP 132/67; PULSE 61; TEMP 36.9; O2SAT 94
[2017-12-05] MEDS ORDERED: GABAPENTIN 300 MG CAP PO SCH (21:00)
[2017-12-05] MEDS ORDERED: NORTRIPTYLINE HCL 25 MG CAP PO SCH ×2 (21:00)
[2017-12-05] MEDS ORDERED: INSULIN GLARGINE SOLOSTAR 100 UNITS/ML 3 ML PEN SC SCH (21:00)
[2017-12-05] MEDS ORDERED: ATORVASTATIN 40 MG TAB PO SCH (21:00)
[2017-12-05] MEDS: SUCRALFATE 1 GM/10 ML UDC PO SCH (21:54)
[2017-12-05] MEDS: METOPROLOL SUCC 50MG EXT REL TAB PO SCH (21:56)
[2017-12-05] MEDS: PANTOprazole SOD 40 MG TAB PO SCH (21:56)
[2017-12-05] MEDS: INSULIN ASPART 100 UNITS/ML 3 ML PEN SC SCH (22:05)
[2017-12-05] MEDS: HEPARIN SOD 5000 UNIT/0.5 ML CARP SQ SCH (22:06)
--- NOTE | 2017-12-05 22:50 | EMERGENCY ROOM VISIT NOTE ---
History Report prepared by Felix: Talat Enrique Under the Supervision of: Dr. Bladimir Phillips M.D. First contact with patient: 16:14 Chief Complaint: CHEST PAIN Stated Complaint: CHEST PAIN History of Present Illness The patient is a 62 year old male who presents to the Emergency Room with complaints of worsening chest pain since August that goes all the way across. He states that the pain waxes and wanes throughout the day, and he states that the pain feels like an "elephant is sitting on my chest". The patient states that the pain is sometimes worsened with exertion, and he states that the pain is the same as the last time he had a heart attack. The patient states that today he had pain in the morning which went away earlier, though it came back when he was walking around a grocery store. He additionally notes that he is having shortness of breath, bilateral arm pain, hand numbness, chronic back pain , leg swelling, arm swelling, and headache. The patient denies any neck pain, abdominal pain, and fever. The patient states that the last time that he had a catheterization was in 2013, and he had a stent put in, and in total he has a history of 6 stents in total placed after having a heart attack in 2008. He states that he has had chest pain for a long time, and he has had a recent stress test 4 weeks ago, and they have not given the patient his results, though he states that this pain is similar to the pain he has had for a long time. He additionally reports that he has been taking an epileptic medicine for his back pain and chest pain for the past 2 years, and he has been increasing his dosage to 4 or 5 pills which is no longer helping his pain. He states that he takes steroids, and he states that he is not on any water pills. He additionally notes that was in [place] and did cardiac rehab in 2008, and he was still having pain during that time after his heart attack. The patient reports that he is active, and he gets short of breath while doing activities. He has a history of shoulder surgery and back surgery. Source of History: patient Onset: August Position: chest Quality: other ("Elephant sitting on my chest") Timing: worsening Associated Symptoms: + headache, + SOB, No fevers, No neck pain, No abdominal pain Note: Associated symptoms: Bilateral arm pain, hand numbness, leg pain, arm swelling Review of Systems See HPI for pertinent positives & negatives. A total of 10 systems reviewed and were otherwise negative. Past Medical & Surgical Medical Problems: (1) Benign hypertension (2) Cataract (3) Cataract extraction and insertion of intraocular lens (4) Chest pain (5) Coronary artery disease (6) Diabetes mellitus type 2 (7) Fusion of posterior lumbar spine (8) Heart disease (9) Hypercholesterolemia (10) Hypertension (11) Left rotator cuff tear (12) Placement of stent in coronary artery Surgical Problems: (1) History of back surgery Family History Diabetes mellitus FH: cancer FH: heart disease Hypertension Seizures Social History Smoking Status: Never Smoker Alcohol Use: none Marital Status: Housing Status: lives with significant other Occupation Status: retired Current/Historical Medications Scheduled Aspirin (Aspirin Ec), 81 MG PO QAM Atorvastatin (Lipitor), 80 MG PO HS Cholecalciferol (Vitamin D3), 2,000 INTER.UNIT PO DAILY Gabapentin (Gabapentin), 600 MG PO HS Glipizide (Glipizide ER), 10 MG PO BID Insulin Glargine (Basaglar Kwikpen), 32 UNITS SC HS Metformin Hcl (Glucophage Er), 750 MG PO HS Metformin Hcl (Glucophage Er), 1,500 MG PO QAM Methylprednisolone (Methylprednisolone), 2 MG PO QAM Metoprolol Succinate (Metoprolol Succinate ER), 100 MG PO BID Nortriptyline HCl (Nortriptyline HCl), 50 MG PO HS Valsartan (Valsartan), 320 MG PO QAM Scheduled PRN Meloxicam (Meloxicam), 15 MG PO DAILY PRN for Pain Allergies Coded Allergies: Prasugrel (Verified Allergy, Severe, RASH, 03/15/17) Clopidogrel (Verified Allergy, Unknown, rash, 03/15/17) Nitroglycerin (Verified Adverse Reaction, Unknown, HEADACHE, 06/03/17) Oxycodone (Verified Adverse Reaction, Unknown, UPSET STOMACH, 06/14/17) Physical Exam Vital Signs Date Time Temp Pulse Resp B/P (MAP) Pulse Ox O2 Delivery O2 Flow Rate FiO2 12/05/17 16:10 95 Room Air 12/05/17 16:10 58 20 178/ 96 Room Air 12/05/17 16:08 64 12/05/17 15:32 96 Room Air 12/05/17 15:32 96 Room Air 3/1/18 15:17 96 Room Air 12/05/17 15:11 36.7 65 20 196/97 96 Room Air Physical Exam Constitutional: Vital signs reviewed. Eyes: Pupils are equal round reactive to light. Conjunctiva are noninjected. ENT: Pharynx is clear without erythema or exudate. Mucous membranes are moist. Neck supple without meningeal signs. Respiratory: Clear to auscultation bilaterally. Breath sounds are equal bilaterally. Cardiovascular: Regular rate and rhythm. No rubs or gallops. GI: Soft, nondistended and nontender. Bowel sounds are present. Musculoskeletal: Slight pedal edema bilaterally No lower extremity tenderness. Integumentary: No cyanosis. Neurological: The patient is awake and alert. No focal deficits. Psychiatric: Normal affect. Medical Decision & Procedures ER Provider Diagnostic Interpretation: Radiology results as stated below per my review and the radiologist's interpretation: CHEST ONE VIEW PORTABLE CLINICAL HISTORY: Atypical chest pain COMPARISON STUDY: June 03, 2017 FINDINGS: The cardiac and mediastinal contours are normal. There is no evidence of focal pulmonary consolidation. There is no evidence of failure. No pleural effusions are visualized.[ IMPRESSION: No active disease in the chest. Electronically signed by: Dhruv Hernandez M.D. 12/05/2017 4:23 PM Dictated Date/Time: 12/05/2017 4:23 PM Laboratory Results 12/05/17 15:25 12/05/17 15:25 Test 12/05/17 15:25 12/05/17 15:35 Red Blood Count 4.75 M/uL (4.7-6.1) Mean Corpuscular Volume 93.5 fL (80-100) Mean Corpuscular Hemoglobin 31.6 pg (25-34) Mean Corpuscular Hemoglobin Concent 33.8 g/dl (32-36) RDW Standard Deviation 42.4 fL (36.4-46.3) RDW Coefficient of Variation 12.5 % (11.5-14.5) Mean Platelet Volume 10.7 fL (7.4-10.4) Prothrombin Time 10.3 SECONDS (9.0-12.0) Prothromb Time International Ratio 1.0 (0.9-1.1) Activated Partial Thromboplast Time 24.0 SECONDS (21.0-31.0) Partial Thromboplastin Ratio 0.9 Anion Gap 4.0 mmol/L (3-11) Est Creatinine Clear Calc Drug Dose 90.1 ml/min Estimated GFR () 100.2 Estimated GFR (Non- 86.5 BUN/Creatinine Ratio 12.3 (10-20) Calcium Level 9.0 mg/dl (8.5-10.1) Total Bilirubin 0.7 mg/dl (0.2-1) Aspartate Amino Transf (AST/SGOT) 19 U/L (15-37) Alanine Aminotransferase (ALT/SGPT) 34 U/L (12-78) Alkaline Phosphatase 83 U/L (45-117) Total Creatine Kinase 142 U/L (39-308) Creatine Kinase MB 1.8 ng/ml (0.5-3.6) Creatine Kinase MB Ratio 1.3 (0-3.0) Total Protein 6.9 gm/dl (6.4-8.2) Albumin 3.9 gm/dl (3.4-5.0) Globulin 3.0 gm/dl (2.5-4.0) Albumin/Globulin Ratio 1.3 (0.9-2) Beta-Hydroxybutyric Acid 1.41 mg/dL (0.2-2.81) Bedside Troponin I < 0.030 ng/ml (0-0.045) Laboratory results as reviewed by me. Medications Administered Medications (Trade) Dose Ordered Sig/Leander Route Start Time Stop Time Status Last Admin Dose Admin Lidocaine HCl (Viscous Lidocaine 2% Soln) 10 ml NOW STAT PO 12/05/17 16:44 12/05/17 16:46 DC 12/05/17 17:00 10 ML Al Hydroxide/Mg Hydroxide (Maalox Susp) 30 ml NOW STAT PO 12/05/17 16:44 12/05/17 16:46 DC 12/05/17 17:00 30 ML ECG Per My Interpretation Indication: chest pain Rate (beats per minute): 58 Rhythm: sinus bradycardia Findings: no ectopy, other (No ST elevation) Change: REPEAT EKG: Sinus bradycardia at 57bpm. No ST elevations. No ectopy. ED Course 1614: The patient was evaluated in room C12. A complete history and physical exam was performed. 1640: I spoke with Dr. Martins - [facility] Hospitalist. We discussed the patient and his results. The patient will be further evaluated by him. 1643: I reevaluated the patient, and he now has heart burn which does not feel like the chest pain he was having. He is going to get a repeat EKG and a GI cocktail. 1644: Maalox Susp 30ml PO, Viscous Lidocane 2% Soln 10ml PO 1721: I reevaluated the patient, and his heart burn and chest pain are relieved. He is currently asymptomatic. Medical Decision This is a 62-year-old male presents with chest pain. Differential diagnosis includes unstable angina, [place], GERD, pleurisy, pneumonia, pneumothorax. I did perform a limited focused review of portions of the patient's old chart on the electronic medical record. The patient had a cath in 2013 for angina. He had a patent proximal LAD stent with 50% stenosis of the mid LAD stent and 90% stenosis of the distal LAD. Stenosis and patent stents also in the RCA. I did evaluate the patient as noted above. IV access was established. The patient was placed on a continuous cardiac rehabilitation program director. I did personally review the patient's 12-lead EKG and chest x-ray as described above. I did review the patient's blood work as noted in the electronic medical record. His troponin is negative. Glucose is elevated. He is diabetic. While in the emergency department the patient developed heartburn. He states it did not feel anything like his chest pain earlier. I did repeat a 12-lead EKG which did not show any change from his prior any acute ischemic changes. I did treat him with a GI cocktail. I did reevaluate the patient. The patient states that he is symptom- free at this time. He does not have heartburn or any of the chest pain he had earlier. I did recommend hospitalization for further evaluation given his long- standing history of coronary artery disease and multiple stents. He also characterizes his chest pain as an elephant sitting on his chest which feels similar to when he had his prior episodes. Additionally it is worse with exertion. I did discuss the test results with the patient and discussed case with the hospitalist and case preparer and liner. Medication Reconcilliation Current Medication List: was personally reviewed by me Blood Pressure Screening Patient's blood pressure: Elevated blood pressure Monitored by the hospitalist. Consults Time Called: 1636 Consulting Physician: Dr. Claudia Andre [facility] Hospitalist Returned Call: [address] Lakshmi Andre [facility] Hospitalist. We discussed the patient and his results. The patient will be further evaluated by him. Impression Primary Impression: Exertional chest pain Additional Impression: Hyperglycemia Scribe Attestation The scribe's documentation has been prepared under my direct and personally reviewed by me in its entirety. I confirm that the note above accurately reflects all work, treatment, procedures, and medical decision making performed by me. Departure Information Dispostion Being Evaluated By Hospitalist Referrals Leonor Canales (PCP) Patient Instructions My [facility] Problem Qualifiers
[2017-12-05 23:50] VITALS: BP 148/81; PULSE 60; TEMP 37.1; O2SAT 94
[2017-12-06] MEDS ORDERED: GI COCKTAIL PO ONE (01:30)
[2017-12-06] MEDS ORDERED: ALUMINUM/MAGNESIUM SUSP 18 ML, LIDOCAINE HCL 2% VISCOUS SOLN 6 ML, BARCODE IDENTIFIER 1 EA PO ONE ×2 (02:00)
[2017-12-06 03:50] VITALS: BP 128/73; PULSE 62; TEMP 36.9; O2SAT 94
[2017-12-06] MEDS ORDERED: PNEUMOCOCCAL ADMINISTRATION CHARGE ONE (04:15)
[2017-12-06] MEDS ORDERED: PNEUMOCOCCAL POLYSACCHARIDES 25 MCG/0.5 ML VIAL/SYR IM. ONE (04:15)
[2017-12-06 06:36] LABS: HEMATOCRIT 41.3 % (42-52); HEMOGLOBIN 14.1 g/dL (14.0-18.0); MEAN CELL VOLUME 94.7 fL (80-100); MEAN CORPUSCULAR HEMOGLOBIN 32.3 pg (25-34); MEAN CORPUSCULAR HGB CONC 34.1 g/dl (32-36); MEAN PLATELET VOLUME 10.9 fL (7.4-10.4); PLATELET COUNT 218 K/uL (130-400); RED CELL DISTRIBUTION WIDTH CV 12.5 % (11.5-14.5)
[2017-12-06 07:10] LABS: BLOOD UREA NITROGEN 14 mg/dl (7-18); CALCIUM 8.3 mg/dl (8.5-10.1); CARBON DIOXIDE 28 mmol/L (21-32); CREATININE 0.83 mg/dl (0.60-1.40); GLUCOSE 138 mg/dl (70-99); POTASSIUM 3.5 mmol/L (3.5-5.1); SODIUM 138 mmol/L (136-145)
[2017-12-06 07:13] LABS: HEMOGLOBIN A1C 10.8 % (4.5-5.6)
[2017-12-06] MEDS: INSULIN ASPART 100 UNITS/ML 3 ML PEN SC SCH ×2 (07:32→11:57)
[2017-12-06 08:08] VITALS: BP 119/76; PULSE 58; TEMP 36.5; O2SAT 93
[2017-12-06] MEDS: PANTOprazole SOD 40 MG TAB PO SCH (08:27)
[2017-12-06] MEDS: SUCRALFATE 1 GM/10 ML UDC PO SCH ×2 (08:28→11:57)
[2017-12-06] MEDS: HEPARIN SOD 5000 UNIT/0.5 ML CARP SQ SCH (08:31)
[2017-12-06] MEDS ORDERED: VALSARTAN 80 MG TAB PO SCH (09:00)
[2017-12-06] MEDS ORDERED: ASPIRIN 81 MG ECTAB PO SCH (09:00)
[2017-12-06] MEDS: METOPROLOL SUCC 50MG EXT REL TAB PO SCH (09:54)
--- NOTE | 2017-12-06 11:48 | CARDIOLOGY CONSULTATION ---
DATE OF CONSULTATION: 12/06/2017 PERTINENT HISTORY: Mr. Ayers is a 62-year-old white male with a known history of coronary artery disease who presented to the Emergency Room yesterday with a chest pain syndrome. This consultation was ordered to assist in his management. Of note, I met the patient in October in the outpatient setting. The patient claims he was in his usual state of health until yesterday. He and his drove to [place]. During the drive, he noted his typical substernal chest discomfort which he describes as a pressure and burning type sensation. The discomfort progressed despite eating a meal. His discomfort lasted for hours and finally, he felt that he needed evaluation. He did receive some nitroglycerin in the Emergency Room which he claims improved his discomfort. There were no other associated symptoms such as shortness of breath, nausea, vomiting, or diaphoresis. The patient has noticed substernal chest discomfort for many months. During her October visit, he explained that his discomfort had started prior to the holidays. He again noted a substernal chest burning and pressure type sensation which was nearly constant. Usually, once every 2-3 days, his discomfort would increase. He did undergo a stress echocardiogram on November 05 of this year in our office. He exercised to a 7 MET level and his heart rate reached 80% predicted maximum. His echocardiographic response was completely normal. The patient's coronary disease was first diagnosed in 2007 when he developed an acute coronary syndrome. He had 2 drug-eluting stents placed in the right coronary artery at [facility] in [place]. He did well until the early spring when he presented with an acute anterior wall myocardial infarction. He had a drug-eluting stent placed in the proximal LAD at that time. However, he returned in February 2012 again, experiencing crescendo angina pectoris. He had drug-eluting stents placed in the distal LAD and the mid circumflex. He did well until May 2014 when he again presented with crescendo angina pectoris. He had a drug-eluting stent placed in the distal LAD. At the time of that cardiac catheterization, all other stents were patent. There was a 50% in-stent mid LAD stenosis. Currently, the patient is resting comfortably in bed complaining of mild 2/10 on a pain scale, substernal chest discomfort. PAST MEDICAL HISTORY: 1. Coronary artery disease -- see above. 2. Hypertension. 3. Hypercholesterolemia. 4. Diabetes mellitus. 5. GERD. 6. Polymyalgia rheumatica. 7. Diverticulosis. 8. DJD. 9. History of Edwards palsy. 10. Lumbar spine surgery. 11. Intraocular lens implants. ALLERGIES: 1. PRASUGREL. 2. PLAVIX -- HIVES. MEDICATIONS: 1. Metoprolol succinate 100 mg b.i.d. 2. Valsartan 320 mg q.a.m. 3. Heparin 5000 units subQ q. 12 hours. 4. Aspirin 81 mg per day. 5. Lipitor 80 mg at bedtime. 6. Neurontin 600 mg at bedtime. 7. Lantus insulin 16 units at bedtime. 8. Carafate 1 gram q.i.d. 9. Protonix 40 mg b.i.d. 10. Nortriptyline 50 mg at bedtime. SOCIAL HISTORY: The patient is and lives with his . Does not use tobacco or alcohol. FAMILY HISTORY: Positive for early coronary artery disease in his father and brothers. REVIEW OF SYSTEMS: A 10-point review of systems was negative except for that described above. PHYSICAL EXAMINATION: GENERAL: This is a well-developed, well-nourished white male in no acute distress. VITAL SIGNS: Blood pressure is 120/76 with a regular pulse of 50. Respiratory rate is 18. The patient is afebrile at 36.5 degrees centigrade. Saturations 93% on room air. HEENT: Negative. NECK: Supple with full carotid upstrokes. No carotid bruits. Jugular venous pressure is flat at 90 degrees. There is no thyromegaly. CARDIOVASCULAR: Reveals a regular rhythm with a normal S1 and S2. Heart sounds are distant. No obvious murmurs. LUNGS: Clear without rales, rhonchi, or wheeze. ABDOMEN: Obese without bruits. EXTREMITIES: Reveal intact radial artery pulses bilaterally. There is no peripheral edema. DATA: CBC notes hemoglobin 14.1, hematocrit 41.3, white count 6.2, and platelet count 218,000. Electrolytes note a sodium of 138, potassium 3.5, chloride 105, bicarbonate 28, BUN 14, creatinine 0.83 and glucose 132. Three troponin I levels are undetectable. INR is 1.0. EKGs note sinus bradycardia with an occasional PAC. Chest x-ray shows no acute disease. IMPRESSION: Mr. Ayers presents with an atypical chest pain syndrome. I do not feel this represents coronary ischemia as his cardiac isoenzymes are undetectable despite hours of discomfort. Furthermore, echocardiogram shows no acute ST changes and he had a normal stress echocardiogram performed in late October of this year. I do not feel that further cardiac testing is indicated at this time. In the outpatient setting, we entertained the possibility of lower cervical or upper thoracic spinal disease. We could consider a CT scan of that area to further investigate the possibility. Also, agree with treating a possible reflux esophagitis. PLAN: 1. Continue usual outpatient cardiac medications. 2. Agree with treatment of reflux. 3. Could consider CT scan of the lower cervical and upper thoracic spine. 4. Further recommendation pending his clinical course.
[2017-12-06 11:57] VITALS: BP 124/78; PULSE 66; TEMP 36.6; O2SAT 94
[2017-12-06] MEDS ORDERED: NVLGIPEN SC (12:18)
[2017-12-06] MEDS ORDERED: CRFUDL PO (12:18)
[2017-12-06] MEDS ORDERED: PRT40 PO (12:18)
[2017-12-06 12:19] VITALS: Ht 175.3 cm; Wt 90.5 kg
[2017-12-06] MEDS ORDERED: INSU32MI SC (12:25)
--- NOTE | 2017-12-06 12:36 | Discharge Instructions ---
Discharge Instructions Date of Service Dec 06, 2017. Admission Reason for Admission: Chest Pain Discharge Discharge Diagnosis / Problem: Chest pain Discharge Goals Goal(s): Decrease discomfort, Improve function, Diagnostic testing Activity Recommendations Activity Limitations: resume your previous activity (as tolerated) . Instructions / Follow-Up Instructions / Follow-Up You were admitted to the hospital for observation after presenting with chest pain. Your work up included cardiac monitoring overnight, serial cardiac enzymes, and an evaluation by your staff software engineer. Your tests have come back normal. Due to your recent normal stress test, cardiology did not recommend any further intervention at this time. During your stay, your hemoglobin A1c was checked, which was markedly elevated at 10.8 (goal below 7). After discussing with the floorperson, some adjustments have been made to your regimen as below. Medications: *STOP glipizide. *Please take Novolog (insulin aspart) 5 units subcutaneously before each meal. This is a short acting insulin to help improve your blood sugars. *Please take Protonix (pantoprazole) 40 mg daily. This is a medication for acid reflux and may help to alleviate some of your discomfort. *Please take Carafate (sucralfate) 10 mL (2 teaspoons) four times a day, before meals and bedtime. This is an antacid that helps protect your intestinal lining. *Continue your other home medications as prescribed. Follow up: *You have been scheduled to follow up with your primary care provider next week. As an outpatient, you should be referred to a Budget Record Clerk to see about getting an EGD (a scope of your esophagus and stomach). You may have ulcerations or even a fungal infection in your esophagus or stomach from taking steroids and NSAIDs (Meloxicam). You should STOP taking meloxicam or any other NSAIDs as these can worsen GI symptoms as well as cause heart attacks or strokes. You can have cervical spine and thoracic spine imaging to assess for disease there that may be contributing to your pain. *You will also be scheduled to follow up with cardiology. Please seek medical attention if you experience fevers, chills, sweats, dizziness/lightheadedness, loss of consciousness, chest pain, shortness of breath, nausea, vomiting, numbness or tingling. Current Hospital Diet Patient's current hospital diet: Diabetes Type 2 Diet Discharge Diet Recommended Diet: AHA Diet (Heart Healthy), Diabetes Type 2 Diet Pending Studies Studies pending at discharge: no Laboratory Results Hemoglobin A1c Test 12/06/17 05:43 Range/Units Estimated Average Glucose 263 mg/dl Hemoglobin A1c 10.8 H 4.5-5.6 % Medical Emergencies . Who to Call and When: Medical Emergencies: If at any time you feel your situation is an emergency, please call 911 immediately. . Non-Emergent Contact Non-Emergency issues call your: Primary Care Provider, Supervisor Instrument Maintenance Call Non-Emergent contact if: you have a fever, your pain is not controlled, your pain is worsening, your pain is unusual for you, your pain is concerning you, you have any medication questions . Past History Medical & Surgical History: (1) Chest pain (2) Coronary artery disease (3) Diabetes mellitus type 2 . "Provider Documentation" section prepared by Ashely Delaney. .
--- NOTE | 2017-12-06 14:03 | Discharge Summary ---
Discharge Summary Date of Service Dec 06, 2017. Discharge Summary Admission Date: Dec 05, 2017 at 17:51 Discharge Date: Dec 06, 2017 Discharge Disposition: Home Principal Diagnosis: Chest pain Problems/Secondary Diagnoses: CAD, ischemic cardiomyopathy, HTN, HLD, DM II, neuropathy, asthma, fibromyalgia , PMR, myositis, GERD Consultations: Cardiology Medication Reconciliation New Medications: Insulin Pen Needle (Novofine [id number]) 1 Mis Mis BOX SC AC, #1 Insulin Aspart (Novolog Flexpen) 100 Units/Ml Inj 5 UNITS SC AC for 30 Days, #450 UNITS Pantoprazole (Pantoprazole Sodium) 40 Mg Tab 40 MG PO DAILY for 30 Days, #30 TAB Sucralfate (Sucralfate) 1 Gm/10 Ml Susp 1 GM PO QID for 14 Days, #56 DOSE Continued Medications: Aspirin (Aspirin Ec) 81 Mg Tab 81 MG PO QAM Atorvastatin (Lipitor) 80 Mg Tab 80 MG PO HS Cholecalciferol (Vitamin D3) 2,000 Unit Cap 2000 INTER.UNIT PO DAILY, CAP Gabapentin (Gabapentin) 300 Mg Cap 600 MG PO HS Insulin Glargine (Basaglar Kwikpen) 100 Unit/Ml Inj 32 UNITS SC HS Metformin Hcl (Glucophage Er) 750 Mg Tab 750 MG PO HS Metformin Hcl (Glucophage Er) 750 Mg Tab 1500 MG PO QAM, TAB Methylprednisolone (Methylprednisolone) 4 Mg Tab 2 MG PO QAM Metoprolol Succinate (Metoprolol Succinate ER) 100 Mg Tabcr 100 MG PO BID Nortriptyline HCl (Nortriptyline HCl) 50 Mg Cap 50 MG PO HS Valsartan (Valsartan) 320 Mg Tab 320 MG PO QAM Discontinued Medications: Glipizide (Glipizide ER) 10 Mg Tabcr 10 MG PO BID Meloxicam (Meloxicam) 15 Mg Tab 15 MG PO DAILY PRN for Pain Discharge Exam Patient still complains of a 4/10 dull central chest pressure and burning. He states that his pain has been constant since arriving here but is improved compared to admission. He also complains of a 5/10 frontal headache. He denies any shortness of breath, nausea, vomiting, diaphoresis, or dizziness. Constitutional: No fever, No chills, No sweats Eyes: No worsening of vision, No eye pain, No diplopia ENT: No hearing loss, No nasal symptoms, No trouble swallowing Respiratory: No cough, No wheezing, No shortness of breath Cardiovascular: +Chest pressure. No claudication, No palpitations Abdomen: No pain, No nausea, No vomiting Musculoskeletal: No joint pain, No muscle pain, No swelling Genitourinary - Male: No dysuria, No urinary retention, No hematuria Neurologic: No paralysis, No weakness, No numbness/tingling Integumentary: No rash, No itch, No color change General appearance: Well-developed, well-nourished, no apparent distress Head: Normocephalic, atraumatic Eyes: Normal inspection, PERRL, EOMI ENT: Normal ENT inspection, hearing grossly normal, pharynx normal Neck: Supple, no JVD, trachea midline Respiratory/Chest: Lungs clear to auscultation, normal breath sounds, no respiratory distress Cardiovascular: Regular rate & rhythm, no gallop, no murmur Abdomen/GI: Normal bowel sounds, non-tender, soft Extremities/Musculoskeletal: Normal inspection, no calf tenderness, no pedal edema Neurological/Psych: Alert, normal mood/affect, oriented x 3 Skin: Normal color, warm/dry, no rash Hospital Course 62 y/o male with a history of CAD, [place], cardiac stents, ischemic cardiomyopathy, HTN, HLD, DM II, neuropathy, fibromyalgia, PMR, myositis, asthma and GERD who presented to the ED on 12/05 with chest pain. Chest pain, ACS r/o -Admit to telemetry for observation. No acute events overnight. Pt in sinus bradycardia/sinus rhythm with HR 50s-60s. -Troponin negative x 3 -Recent negative stress echo 11/05/17, will not repeat at this time -Cardiology consulted, appreciate recs: No further intervention at this time. Continue usual medications, agree with treatment of reflux. Could consider CT scan of lower cervical and upper thoracic spine for possible musculoskeletal component. -EKGs no acute ischemic changes -Symptoms do not appear cardiac, could be MSK component. Can having imaging of spine as outpatient -Symptoms had improved after receiving viscous lidocaine, could be GERD vs PUD vs candidal esophagitis (chronic steroids). D/C Mobic, recommend outpatient GI follow up CAD, h/o [place], stents, ischemic cardiomyopathy, HTN, HLD--stable -Continue ASA, Lipitor 80 mg PO qd, valsartan 320 mg PO qd, and Toprol XL 100 mg PO BID DM II -Hold glipizide and metformin while inpatient -Basaglar 32 units SC daily at home, converted to Lantus 16 units SC hs here as he was NPO after midnight for possible intervention. Continue at 32 units at discharge -Insulin sliding scale -Check BSGs q ac and qhs -HgbA1c 10.8 here. Spoke with early childhood educator aide, recommend d/cing glipizide and adding Novolog 5 units SC qac Neuropathy, fibromyalgia--stable -Continue gabapentin 600 mg PO hs and nortriptyline 50 mg PO hs PMR, myositis--stable -Continue Medrol 2 mg PO qd GERD -Started on Protonix 40 mg PO qd -Start Carafate QID x 2 weeks DVT prophylaxis -Heparin 5000 units SC q12h Code Status -Level I, FULL RESUSCITATION STATUS Total Time Spent: Greater than 30 minutes This includes examination of the patient, discharge planning, medication reconciliation, and communication with other providers. Discharge Instructions Please refer to the electronic Patient Visit Report (Discharge Instructions) for additional information. Additional Copies To Leonor Canales
[2017-12-06 14:11] VITALS: BP 124/78; PULSE 66; TEMP 36.6; O2SAT 94
== END 2017-12-06 14:43 | disposition home or self-care (01) ==
LOC: C.EDB 15:02 → C.2E 17:51 → ENRESERV 18:14
PROVIDERS: ADMIT Internal Medicine; ATTEND Internal Medicine
DX: R07.9 Chest pain, unspecified (principal); I25.10 Atherosclerotic heart disease of native coronary artery without angina pectoris; I25.5 Ischemic cardiomyopathy; I10 Essential (primary) hypertension; E78.5 Hyperlipidemia, unspecified; E11.9 Type 2 diabetes mellitus without complications; G62.9 Polyneuropathy, unspecified; J45.909 Unspecified asthma, uncomplicated; M79.7 Fibromyalgia; M35.3 Polymyalgia rheumatica; H57.03 Miosis; K21.9 Gastro-esophageal reflux disease without esophagitis; R51 Headache; E78.00 Pure hypercholesterolemia, unspecified; Z79.4 Long term (current) use of insulin; Z79.899 Other long term (current) drug therapy; Z79.82 Long term (current) use of aspirin; Z98.890 Other specified postprocedural states; Z79.01 Long term (current) use of anticoagulants; Z88.8 Allergy status to other drugs, medicaments and biological substances; Z83.3 Family history of diabetes mellitus; Z80.9 Family history of malignant neoplasm, unspecified; Z82.49 Family history of ischemic heart disease and other diseases of the circulatory system; Z82.0 Family history of epilepsy and other diseases of the nervous system

== ENCOUNTER → 2018-01-20 | Day surgery (SDC) | payer OTHER ==
[2018-01-09 09:06] VITALS: Ht 175.3 cm; Wt 90.9 kg
[~2018-01-20] VITALS: Ht 175.3 cm; Wt 90.9 kg
[~2018-01-20] MED LIST changes: -ASPI-435 PO; +ASPI81TA28 PO; +ATROPINE SULFATE 0.1 MG/ML 5ML SYR IV PRN; +COEN100C7 PO; +CRFUDL PO; +EpHEDrine SULFATE INJ 50 MG/ML AMP IV PRN; +FENTANYL CITRATE INJ 50 MCG/1 ML 2 ML VIAL ONE; +GLIP-199 PO; -INSDGIPEN SC; +INSU100I23 SC; +LIDOCAINE HCL 2% 2 ML VIAL (20MG/ML) ONE; -MELO-83 PO; +METF750T PO; -METO100T44 PO; +NVLGIPEN SC; +PANT40TA PO; +PROPOFOL IV EMULSION 10 MG/ML 20 ML VIAL IV ONE; +SODIUM CHLORIDE 0.9% 500ML 500 ML IV ONE; +TPRSR/100 PO; -TRAM-10 PO
--- NOTE | 2018-01-20 15:11 | Endo History and Physical ---
History & Physical Date of Service: Jan 20, 2018. Chief Complaint: Chest pain Referring Physician: KATELIN Schulz History of Present Illness 62 yo CM who presents for EGD secondary to chest pain. Past Medical History Diabetes, Angioplasty/Stent, Hypertension, [place] Past Surgical History Hx Cardiac Surgery: Yes (STENTS X6 FROM HEART CATHS X 3) Hx Internal Defibrillator: No Hx Pacemaker: No Hx Abdominal Surgery: No Hx of Implantable Prosthesis: No Hx Post-Op Nausea and Vomiting: No Hx Cancer Surgery: No Hx Thoracic Surgery: No Hx Orthopedic: Yes (BACK SURG, L RCR) Hx Urinary Tract Surgery: No Family History Colon CA Social History Smoking Status: Light Tobacco Smoker Hx Substance Use: No Hx Alcohol Use: No Allergies Coded Allergies: Prasugrel (Verified Allergy, Severe, RASH, 01/20/18) Clopidogrel (Verified Allergy, Unknown, rash, 01/20/18) Nitroglycerin (Verified Adverse Reaction, Unknown, HEADACHE, 01/20/18) Oxycodone (Verified Adverse Reaction, Unknown, UPSET STOMACH, 01/20/18) Current Medications Reported Home Medications Medications Dose Route/Sig Max Daily Dose Days Date Category Glipizide Er (Glipizide) 10 Mg Tab 1 Tab PO BID 90 01/09/18 Reported Coq10 (Coenzyme Q10 (Ubidecarenone)) 100 Mg Cap 100 Mg PO BID 01/09/18 Reported Protonix (Pantoprazole Sodium) 40 Mg Tab 40 Mg PO QAM 01/09/18 Reported Novolog Flexpen (Insulin Aspart) 100 Units/Ml Inj 5 Units SC AC 30 12/06/17 Rx Sucralfate 1 Gm/10 Ml Susp 1 Gm PO QID 14 12/06/17 Rx Basaglar Kwikpen (Insulin Glargine) 100 Unit/Ml Inj 32 Units SC HS 12/05/17 Reported Metoprolol Succinate ER (Metoprolol Succinate) 100 Mg Tabcr 100 Mg PO BID 12/05/17 Reported Aspirin Ec (Aspirin) 81 Mg Tab 81 Mg PO QAM 12/05/17 Reported Vitamin D3 (Cholecalciferol) 2,000 Unit Cap 2,000 Inter.unit PO QAM 06/03/17 Reported Nortriptyline HCl 50 Mg Cap 50 Mg PO HS 06/03/17 Reported Lipitor (Atorvastatin Calcium) 80 Mg Tab 80 Mg PO HS 03/15/17 Reported Methylprednisolone 4 Mg Tab 2 Mg PO QAM 03/15/17 Reported Gabapentin 300 Mg Cap 600 Mg PO HS 03/15/17 Reported Glucophage Er (Metformin Hcl) 750 Mg Tab 1,500 Mg PO QAM 04/14/15 Reported Glucophage Er (Metformin Hcl) 750 Mg Tab 750 Mg PO HS 04/14/15 Reported Valsartan 320 Mg Tab 320 Mg PO QAM 04/08/15 Reported Vital Signs Weight (Kilograms): 90.91 Height (Feet): 5 Height (Inches): 9 Date Time Temp Pulse Resp B/P (MAP) Pulse Ox O2 Delivery O2 Flow Rate FiO2 01/20/18 14:44 36.5 66 20 145/90 (108) 96 Room Air Physical Exam General Appearance: WD/WN, no apparent distress Respiratory/Chest: Auscultation: breath sounds normal Cardiovascular: Heart Auscultation: RRR Abdomen: Bowel Sounds: normal Inspection & Palpation: soft, non-distended, no tenderness, guarding & rebound Assessment and Plan Assessment: 62 yo CM who presents for EGD secondary to chest pain. Plan: Proceed with EGD.
--- NOTE | 2018-01-20 15:32 | Discharge Instructions ---
Endoscopy Patient Instructions Date / Procedure(s) Performed Jan 20, 2018. EGD Allergy Information Coded Allergies: Prasugrel (Verified Allergy, Severe, RASH, 01/20/18) Clopidogrel (Verified Allergy, Unknown, rash, 01/20/18) Nitroglycerin (Verified Adverse Reaction, Unknown, HEADACHE, 01/20/18) Oxycodone (Verified Adverse Reaction, Unknown, UPSET STOMACH, 01/20/18) Discharge Date / Findings Jan 20, 2018. Gastritis s/p biopsies Distal esophageal biopsies Medication Instructions Stopped Medication(s): Aspirin 81mg last dose 01/19/18. OK to resume all medications today as prescribed Reported Home Medications Medications Dose Route/Sig Max Daily Dose Days Date Category Glipizide Er (Glipizide) 10 Mg Tab 1 Tab PO BID 90 01/09/18 Reported Coq10 (Coenzyme Q10 (Ubidecarenone)) 100 Mg Cap 100 Mg PO BID 01/09/18 Reported Protonix (Pantoprazole Sodium) 40 Mg Tab 40 Mg PO QAM 01/09/18 Reported Novolog Flexpen (Insulin Aspart) 100 Units/Ml Inj 5 Units SC AC 30 12/06/17 Rx Sucralfate 1 Gm/10 Ml Susp 1 Gm PO QID 14 12/06/17 Rx Basaglar Kwikpen (Insulin Glargine) 100 Unit/Ml Inj 32 Units SC HS 12/05/17 Reported Metoprolol Succinate ER (Metoprolol Succinate) 100 Mg Tabcr 100 Mg PO BID 12/05/17 Reported Aspirin Ec (Aspirin) 81 Mg Tab 81 Mg PO QAM 12/05/17 Reported Vitamin D3 (Cholecalciferol) 2,000 Unit Cap 2,000 Inter.unit PO QAM 06/03/17 Reported Nortriptyline HCl 50 Mg Cap 50 Mg PO HS 06/03/17 Reported Lipitor (Atorvastatin Calcium) 80 Mg Tab 80 Mg PO HS 03/15/17 Reported Methylprednisolone 4 Mg Tab 2 Mg PO QAM 03/15/17 Reported Gabapentin 300 Mg Cap 600 Mg PO HS 03/15/17 Reported Glucophage Er (Metformin Hcl) 750 Mg Tab 1,500 Mg PO QAM 04/14/15 Reported Glucophage Er (Metformin Hcl) 750 Mg Tab 750 Mg PO HS 04/14/15 Reported Valsartan 320 Mg Tab 320 Mg PO QAM 04/08/15 Reported Provider Instructions Activity Restrictions - No exercising or heavy lifting for 24 hours. - Do not drink alcohol the day of the procedure. - Do not drive a car or operate machinery until the day after the procedure. - Do not make any important decisions or sign important papers in 24 hours after the procedure. Following Day: - Return to full activity which may include returning to work/school. Diet Start your diet with liquids and light foods (jello, soup, juice, toast). Then eat your usual diet if not nauseated. Treatment For Common After Affects For mild abdominal pain, bloating, or excessive gas: - Rest - Eat lightly - Lie on right side Follow-Up Information Follow-up with KATELIN Schulz as scheduled Anesthesia Information What You Should Know You have had a procedure that required some medicine to reduce anxiety and discomfort. This treatment is called moderate sedation. After receiving the treatment, you may be sleepy, but you will be able to breathe on your own. The effects of the treatment may last for several hours. Follow these instructions along with Activity/Diet recommendations noted above: * Do NOT do anything where dizziness or clumsiness would be dangerous. * Rest quietly at home today, then you can be up and about tomorrow. * Have a responsible person stay with you the rest of today. * You may have had an I.V. today. If so, you may take the dressing off later today. Recommendations Call your doctor if: * Trouble breathing * Continuous vomiting for more than 24 hours * Temperature above 101 degrees * Severe abdominal pain or bloating * Pain not relieved by pain medicine ordered * There is increased drainage or redness from any incision * A large amount of rectal bleeding greater than 2-3 tablespoons. (If you had a polyp/s removed or have hemorrhoids, a small amount of blood - from the rectum is to be expected.) * You have any unanswered questions or concerns. IN THE EVENT OF A SERIOUS EMERGENCY, GO TO THE NEAREST EMERGENCY ROOM Your discharge instructions were prepared by provider Channing Frederick. Patient Instructions Signature Page Juan Ayers Patient (or Guardian) Signature/Date: I have read and understand the instructions given to me by my caregivers. Caregiver/RN/Doctor Signature/Date: The above-named patient and/or guardian has received patient instructions on this date. + Original Patient Signature Page (only) stays with chart. Please make copy for patient.
--- NOTE | 2018-01-20 15:34 | GI REPORT ---
Procedure Date: 01/20/2018 3:02 PM Procedure: Upper GI endoscopy Indications: Unexplained chest pain Medicines: Monitored Anesthesia Care Complications: No immediate complications. Estimated Blood Loss: Estimated blood loss: none. Procedure: Pre-Anesthesia Assessment: - Prior to the procedure, a History and Physical was performed, and patient medications and allergies were reviewed. The patient's tolerance of previous anesthesia was also reviewed. The risks and benefits of the procedure and the sedation options and risks were discussed with the patient. All questions were answered, and informed consent was obtained. Prior Anticoagulants: The patient has taken aspirin, last dose was 1 day prior to procedure. ASA Grade Assessment: IV - A patient with severe systemic disease that is a constant threat to life. After reviewing the risks and benefits, the patient was deemed in satisfactory condition to undergo the procedure. After obtaining informed consent, the endoscope was passed under direct vision. Throughout the procedure, the patient's blood pressure, pulse, and oxygen saturations were monitored continuously. The scope was introduced through the mouth, and advanced to the second part of duodenum. The upper GI endoscopy was accomplished without difficulty. The patient tolerated the procedure well. Findings: The Z-line was irregular and was found 37 cm from the incisors. Biopsies were taken with a cold forceps for histology. Localized moderate inflammation characterized by erythema was found in the gastric antrum. Biopsies were taken with a cold forceps for histology. The examined duodenum was normal. Impression: - Z-line irregular, 37 cm from the incisors. Biopsied. - Gastritis. Biopsied. - Normal examined duodenum. Recommendation: - Resume previous diet. - Continue present medications. - Await pathology results. - Return to primary care physician as previously scheduled. Channing Frederick, DO 01/20/2018 3:34:08 PM This report has been signed electronically. Note Initiated On: 01/20/2018 3:02 PM I attest to the content of the Intraoperative Record and orders documented therein, exceptions below
--- NOTE | 2018-01-20 15:42 | Anesthesiology Progress Note ---
Anesthesia Post Op Note Date & Time Jan 20, 2018 at 15:42 Vital Signs Pain Intensity: 3 Vital Signs Past 12 Hours Date Time Temp Pulse Resp B/P (MAP) Pulse Ox O2 Delivery O2 Flow Rate FiO2 01/20/18 14:44 36.5 66 20 145/90 (108) 96 Room Air Notes Mental Status: alert / awake / arousable, participated in evaluation Pt Amnestic to Procedure: Yes Nausea / Vomiting: adequately controlled Pain: adequately controlled Airway Patency, RR, SpO2: stable & adequate BP & HR: stable & adequate Hydration State: stable & adequate Anesthetic Complications: no major complications apparent
[2018-01-20 16:05] VITALS: BP 135/79; PULSE 65; O2SAT 93
== END | disposition home or self-care (01) ==
LOC: C.GI 14:20
PROVIDERS: ATTEND Internal Medicine
DX: R07.9 Chest pain, unspecified (principal); K29.50 Unspecified chronic gastritis without bleeding; K22.8 Other specified diseases of esophagus; I25.10 Atherosclerotic heart disease of native coronary artery without angina pectoris; I10 Essential (primary) hypertension; E11.9 Type 2 diabetes mellitus without complications; I25.2 Old myocardial infarction; Z98.890 Other specified postprocedural states; F17.200 Nicotine dependence, unspecified, uncomplicated; Z98.49 Cataract extraction status, unspecified eye; F17.290 Nicotine dependence, other tobacco product, uncomplicated; E66.9 Obesity, unspecified; Z88.8 Allergy status to other drugs, medicaments and biological substances; Z88.5 Allergy status to narcotic agent; Z79.82 Long term (current) use of aspirin; Z79.4 Long term (current) use of insulin; Z80.0 Family history of malignant neoplasm of digestive organs

== ENCOUNTER → 2018-05-05 | Outpatient (CLI) | payer OTHER ==
[~2018-05-05] MED LIST changes: -ATROPINE SULFATE 0.1 MG/ML 5ML SYR IV PRN; +DICL1GEL12 TOP; -EpHEDrine SULFATE INJ 50 MG/ML AMP IV PRN; -FENTANYL CITRATE INJ 50 MCG/1 ML 2 ML VIAL ONE; -LIDOCAINE HCL 2% 2 ML VIAL (20MG/ML) ONE; +LOSA1TAB38 PO; -PROPOFOL IV EMULSION 10 MG/ML 20 ML VIAL IV ONE; -SODIUM CHLORIDE 0.9% 500ML 500 ML IV ONE
--- NOTE | 2018-05-05 14:56 | DIAGNOSTIC IMAGING REPORT ---
CERVICAL SPINE 7 VIEWS CLINICAL HISTORY: Cervicalgia. FINDINGS: AP, lateral, bilateral oblique, odontoid, Hoffmann, and swimmer's views of the cervical spine are compared to study dated 09/12/2016. The skeletal structures appear osteopenic. There is no radiographic evidence of fracture or malalignment. Vertebral body height is maintained throughout the cervical spine. There is straightening of the cervical lordosis. Minimal retrolisthesis is noted at C4-C5. Alignment is otherwise preserved. The spinal laminar line is maintained. The spinous processes are intact. The odontoid process and lateral masses appear intact. The atlantodental articulation is maintained noting productive degenerative change. Anterior osteophytes are seen in the mid to lower cervical region. Moderate disc space narrowing is seen at C4-C5 and C5-C6. Posterior disc osteophyte complexes at these levels may contribute to mild acquired compromise of the central canal. There is mild left-sided neural foraminal stenosis suggested at C4-C5 and C5-C6 on the oblique views. No significant neural foraminal stenosis is suggested on the right. The prevertebral soft tissues are normal in appearance. The partially imaged apical lung parenchyma appears clear. IMPRESSION: 1. No acute bony abnormality is identified involving the cervical spine. 2. Spondylotic change as above, greatest at C4-C5 and C5-C6. See discussion for detailed level by level analysis. Dictated: 05/05/2018 1:54 PM Transcribed: 05/05/2018 2:56 PM Manuel Electronically signed by: Anibal Durbin M.D. 05/05/2018 3:08 PM Dictated Date/Time: 05/05/2018 1:54 PM
== END | disposition home or self-care (01) ==
LOC: C.RAD1850 13:35
PROVIDERS: ATTEND Physician Assistant Medical
DX: R07.89 Other chest pain (principal)

== ENCOUNTER → 2018-05-14 | Day surgery (SDC) | payer OTHER ==
[~2018-05-14] VITALS: Ht 175.3 cm; Wt 94.1 kg
[~2018-05-14] MED LIST changes: +LIDOCAINE HCL 2% 2 ML VIAL (20MG/ML) ONE; +MIDAZOLAM HCL 1 MG/ML 2ML VIAL ONE; -NVLGIPEN SC; +PROPOFOL IV EMULSION 10 MG/ML 20 ML VIAL ONE; +SODIUM CHLORIDE 0.9% 500ML 500 ML IV ONE; -VALS-59 PO
[2018-05-14 07:55] VITALS: Ht 175.3 cm; Wt 94.1 kg
--- NOTE | 2018-05-14 08:36 | Endo History and Physical ---
History & Physical Date of Service: May 14, 2018. Chief Complaint: SCREENING Referring Physician: JUANCARLOS STEWART History of Present Illness 62 yo CM who presents for screening colonoscopy. Past Medical History Diabetes, Angioplasty/Stent, Hypertension, [place] Past Surgical History Hx Cardiac Surgery: Yes (STENTS X6 FROM HEART CATHS X 3) Hx Internal Defibrillator: No Hx Pacemaker: No Hx Abdominal Surgery: No Hx of Implantable Prosthesis: No Hx Post-Op Nausea and Vomiting: No Hx Cancer Surgery: No Hx Thoracic Surgery: No Hx Orthopedic: Yes (BACK SURG, L RCR) Hx Urinary Tract Surgery: No Family History Colon CA Social History Smoking Status: Light Tobacco Smoker Hx Substance Use: No Hx Alcohol Use: No Allergies Coded Allergies: Prasugrel (Verified Allergy, Severe, RASH, 05/14/18) Clopidogrel (Verified Allergy, Unknown, rash, 05/14/18) Nitroglycerin (Verified Adverse Reaction, Unknown, HEADACHE, 05/14/18) Oxycodone (Verified Adverse Reaction, Unknown, UPSET STOMACH, 05/14/18) Current Medications Reported Home Medications Medications Dose Route/Sig Max Daily Dose Days Date Category Voltaren 1% Top Gel (Diclofenac Sodium (Topical)) 1 % Gel 1 Appln TOP DIRECTED 05/06/18 Reported Cozaar (Losartan Potassium) 100 Mg Tab 100 Mg PO QPM 05/06/18 Reported Glipizide Er (Glipizide) 10 Mg Tab 1 Tab PO BID 90 01/09/18 Reported Coq10 (Coenzyme Q10 (Ubidecarenone)) 100 Mg Cap 100 Mg PO BID 01/09/18 Reported Protonix (Pantoprazole Sodium) 40 Mg Tab 40 Mg PO QAM 01/09/18 Reported Basaglar Kwikpen (Insulin Glargine) 100 Unit/Ml Inj 32 Units SC HS 12/05/17 Reported Metoprolol Succinate ER (Metoprolol Succinate) 100 Mg Tabcr 100 Mg PO BID 12/05/17 Reported Aspirin Ec (Aspirin) 81 Mg Tab 81 Mg PO QAM 12/05/17 Reported Vitamin D3 (Cholecalciferol) 2,000 Unit Cap 2,000 Inter.unit PO QAM 06/03/17 Reported Lipitor (Atorvastatin Calcium) 80 Mg Tab 80 Mg PO HS 03/15/17 Reported Methylprednisolone 4 Mg Tab 2 Mg PO QAM 03/15/17 Reported Gabapentin 300 Mg Cap 600 Mg PO HS 03/15/17 Reported Glucophage Er (Metformin Hcl) 750 Mg Tab 1,500 Mg PO QAM 04/14/15 Reported Glucophage Er (Metformin Hcl) 750 Mg Tab 750 Mg PO HS 04/14/15 Reported Vital Signs Weight (Kilograms): 94.09 Height (Feet): 5 Height (Inches): 9 Date Time Temp Pulse Resp B/P (MAP) Pulse Ox O2 Delivery O2 Flow Rate FiO2 05/14/18 08:13 36.5 74 20 160/87 (111) 97 Room Air Physical Exam General Appearance: WD/WN, no apparent distress Respiratory/Chest: Auscultation: breath sounds normal Cardiovascular: Heart Auscultation: RRR Abdomen: Bowel Sounds: normal Inspection & Palpation: soft, non-distended, no tenderness, guarding & rebound Assessment and Plan Assessment: 62 yo CM who presents for screening colonoscopy. Plan: Proceed with colonoscopy.
--- NOTE | 2018-05-14 09:06 | GI REPORT ---
Patient Name: Juan Ayers Procedure Date: 05/14/2018 8:36 AM Date of : 1955 Admit Type: Outpatient Age: 62 Gender: Male Attending MD: Channing Frederick DO Procedure: Colonoscopy Providers: Channing Frederick DO Referring MD: KATELIN Mckinney Indications: Screening for colorectal malignant neoplasm Medicines: Monitored Anesthesia Care Complications: No immediate complications. Estimated Blood Loss: Estimated blood loss: none. Procedure: Pre-Anesthesia Assessment: - Prior to the procedure, a History and Physical was performed, and patient medications and allergies were reviewed. The patient's tolerance of previous anesthesia was also reviewed. The risks and benefits of the procedure and the sedation options and risks were discussed with the patient. All questions were answered, and informed consent was obtained. Prior Anticoagulants: The patient has taken aspirin, last dose was 2 days prior to procedure. ASA Grade Assessment: III - A patient with severe systemic disease. After reviewing the risks and benefits, the patient was deemed in satisfactory condition to undergo the procedure. After I obtained informed consent, the scope was passed under direct vision. Throughout the procedure, the patient's blood pressure, pulse, and oxygen saturations were monitored continuously. The scope was introduced through the anus and advanced to the terminal ileum. The colonoscopy was performed without difficulty. The patient tolerated the procedure well. The quality of the bowel preparation was good. The terminal ileum, ileocecal valve, appendiceal orifice, and rectum were photographed. Findings: The perianal and digital rectal examinations were normal. A 10 mm polyp was found in the ascending colon. The polyp was sessile. The polyp was removed with a hot snare. Resection and retrieval were complete. Multiple small-mouthed diverticula were found in the sigmoid colon. Non-bleeding internal hemorrhoids were found during retroflexion. The hemorrhoids were small. Impression: - One 10 mm polyp in the ascending colon, removed with a hot snare. Resected and retrieved. - Diverticulosis in the sigmoid colon. - Non-bleeding internal hemorrhoids. Recommendation: - Resume previous diet. - Continue present medications. - Repeat colonoscopy for surveillance based on pathology results. - Return to primary care physician as previously scheduled. Channing Frederick DO 05/14/2018 9:06:07 AM This report has been signed electronically. Note Initiated On: 05/14/2018 8:36 AM Number of Addenda: 0 I attest to the content of the Intraoperative Record and orders documented therein, exceptions below {[id number]}
--- NOTE | 2018-05-14 09:13 | Discharge Instructions ---
Endoscopy Patient Instructions Date / Procedure(s) Performed May 14, 2018. Colonoscopy Allergy Information Coded Allergies: Prasugrel (Verified Allergy, Severe, RASH, 05/14/18) Clopidogrel (Verified Allergy, Unknown, rash, 05/14/18) Nitroglycerin (Verified Adverse Reaction, Unknown, HEADACHE, 05/14/18) Oxycodone (Verified Adverse Reaction, Unknown, UPSET STOMACH, 05/14/18) Discharge Date / Findings May 14, 2018. Colon polyp Diverticulosis Internal hemorrhoids Medication Instructions Stopped Medication(s): PATIENT STOPPED ALL MEDICATIONS OK to resume all medications today as prescribed Reported Home Medications Medications Dose Route/Sig Max Daily Dose Days Date Category Voltaren 1% Top Gel (Diclofenac Sodium (Topical)) 1 % Gel 1 Appln TOP DIRECTED 05/06/18 Reported Cozaar (Losartan Potassium) 100 Mg Tab 100 Mg PO QPM 05/06/18 Reported Glipizide Er (Glipizide) 10 Mg Tab 1 Tab PO BID 90 01/09/18 Reported Coq10 (Coenzyme Q10 (Ubidecarenone)) 100 Mg Cap 100 Mg PO BID 01/09/18 Reported Protonix (Pantoprazole Sodium) 40 Mg Tab 40 Mg PO QAM 01/09/18 Reported Basaglar Kwikpen (Insulin Glargine) 100 Unit/Ml Inj 32 Units SC HS 12/05/17 Reported Metoprolol Succinate ER (Metoprolol Succinate) 100 Mg Tabcr 100 Mg PO BID 12/05/17 Reported Aspirin Ec (Aspirin) 81 Mg Tab 81 Mg PO QAM 12/05/17 Reported Vitamin D3 (Cholecalciferol) 2,000 Unit Cap 2,000 Inter.unit PO QAM 06/03/17 Reported Lipitor (Atorvastatin Calcium) 80 Mg Tab 80 Mg PO HS 03/15/17 Reported Methylprednisolone 4 Mg Tab 2 Mg PO QAM 03/15/17 Reported Gabapentin 300 Mg Cap 600 Mg PO HS 03/15/17 Reported Glucophage Er (Metformin Hcl) 750 Mg Tab 1,500 Mg PO QAM 04/14/15 Reported Glucophage Er (Metformin Hcl) 750 Mg Tab 750 Mg PO HS 04/14/15 Reported Provider Instructions Activity Restrictions - No exercising or heavy lifting for 24 hours. - Do not drink alcohol the day of the procedure. - Do not drive a car or operate machinery until the day after the procedure. - Do not make any important decisions or sign important papers in 24 hours after the procedure. Following Day: - Return to full activity which may include returning to work/school. Diet Start your diet with liquids and light foods (jello, soup, juice, toast). Then eat your usual diet if not nauseated. Treatment For Common After Affects For mild abdominal pain, bloating, or excessive gas: - Rest - Eat lightly - Lie on right side Follow-Up Information Follow-up with JUANCARLOS STEWART as scheduled Anesthesia Information What You Should Know You have had a procedure that required some medicine to reduce anxiety and discomfort. This treatment is called moderate sedation. After receiving the treatment, you may be sleepy, but you will be able to breathe on your own. The effects of the treatment may last for several hours. Follow these instructions along with Activity/Diet recommendations noted above: * Do NOT do anything where dizziness or clumsiness would be dangerous. * Rest quietly at home today, then you can be up and about tomorrow. * Have a responsible person stay with you the rest of today. * You may have had an I.V. today. If so, you may take the dressing off later today. Recommendations Call your doctor if: * Trouble breathing * Continuous vomiting for more than 24 hours * Temperature above 101 degrees * Severe abdominal pain or bloating * Pain not relieved by pain medicine ordered * There is increased drainage or redness from any incision * A large amount of rectal bleeding greater than 2-3 tablespoons. (If you had a polyp/s removed or have hemorrhoids, a small amount of blood - from the rectum is to be expected.) * You have any unanswered questions or concerns. IN THE EVENT OF A SERIOUS EMERGENCY, GO TO THE NEAREST EMERGENCY ROOM Your discharge instructions were prepared by provider Channing Frederick. Patient Instructions Signature Page Juan Ayers Patient (or Guardian) Signature/Date: I have read and understand the instructions given to me by my caregivers. Caregiver/RN/Doctor Signature/Date: The above-named patient and/or guardian has received patient instructions on this date. + Original Patient Signature Page (only) stays with chart. Please make copy for patient.
--- NOTE | 2018-05-14 09:37 | Anesthesiology Progress Note ---
Anesthesia Post Op Note Date & Time May 14, 2018 at 09:38 Vital Signs Vital Signs Past 12 Hours Date Time Temp Pulse Resp B/P (MAP) Pulse Ox O2 Delivery O2 Flow Rate FiO2 05/14/18 09:25 70 20 148/82 (104) 97 Room Air 05/14/18 09:10 36.2 78 20 130/84 (99) 97 Room Air 05/14/18 08:13 36.5 74 20 160/87 (111) 97 Room Air Notes Mental Status: alert / awake / arousable, participated in evaluation Pt Amnestic to Procedure: Yes Nausea / Vomiting: adequately controlled Pain: adequately controlled Airway Patency, RR, SpO2: stable & adequate BP & HR: stable & adequate Hydration State: stable & adequate Anesthetic Complications: no major complications apparent
[2018-05-14 09:50] VITALS: BP 144/84; PULSE 72; O2SAT 97
== END | disposition home or self-care (01) ==
LOC: C.GI 07:46
PROVIDERS: ATTEND Internal Medicine
DX: Z12.11 Encounter for screening for malignant neoplasm of colon (principal); D12.2 Benign neoplasm of ascending colon; K57.30 Diverticulosis of large intestine without perforation or abscess without bleeding; K64.8 Other hemorrhoids; E11.9 Type 2 diabetes mellitus without complications; I10 Essential (primary) hypertension; I25.2 Old myocardial infarction; K44.9 Diaphragmatic hernia without obstruction or gangrene; E78.5 Hyperlipidemia, unspecified; K21.9 Gastro-esophageal reflux disease without esophagitis; M06.9 Rheumatoid arthritis, unspecified; I50.9 Heart failure, unspecified; F17.200 Nicotine dependence, unspecified, uncomplicated; Z95.5 Presence of coronary angioplasty implant and graft; Z80.0 Family history of malignant neoplasm of digestive organs; Z88.8 Allergy status to other drugs, medicaments and biological substances; Z88.5 Allergy status to narcotic agent; Z79.4 Long term (current) use of insulin; Z79.82 Long term (current) use of aspirin; Z86.19 Personal history of other infectious and parasitic diseases; Z92.241 Personal history of systemic steroid therapy

== ENCOUNTER 2019-08-04 02:01 | Inpatient (IN) ==
[2019-08-04] MEDS ORDERED: METOPROLOL TARTRATE 1 MG/ML VIAL IV STA (02:24)
[2019-08-04 02:28] LABS: Basophils # (auto) 0.02 K/uL (0-0.2); Basophils % (auto) 0.2 %; Eosinophils # (auto) 0.09 K/uL (0-0.5); Eosinophils % (auto) 0.9 %; Hematocrit (blood only) 50.7 % (42-52); Hemoglobin 17.7 g/dL (14.0-18.0); Immature Granulocytes # (auto) 0.02 K/uL (0.00-0.02); Immature Granulocytes % (auto) 0.2 %; Lymphocytes # (auto) 1.21 K/uL (1.2-3.4); Lymphocytes % (auto) 12.3 %; Mean Corpuscular Hemoglobin 32.1 pg (25-34); Mean Corpuscular Hgb Conc 34.9 g/dL (32-36); Mean Platelet Volume 10.2 fL (7.4-10.4); Monocytes # (auto) 0.59 K/uL (0.11-0.59); Neutrophils # (auto) 7.88 K/uL (1.4-6.5); Neutrophils % (auto) 80.4 %; Platelet Count 257 K/uL (130-400); RDW Coefficient of Variation 12.8 % (11.5-14.5); RDW Standard Deviation 43.3 fL (36.4-46.3); Red Blood Count 5.51 M/uL (4.7-6.1); White Blood Count 9.81 K/uL (4.8-10.8)
[2019-08-04] MEDS ORDERED: SODIUM CHLORIDE 0.9% 1000ML 1,000 ML IV SCH ×2 (02:30→05:55)
[2019-08-04 02:37] LABS: Partial Thromboplastin Time 25.9 Seconds (21.0-31.0); Prothrombin Time 10.3 Seconds (9.0-12.0)
[2019-08-04 02:40] LABS: Appearance Urine Clear (Clear); Bilirubin Urine Negative (Negative); Blood Urine Negative (Negative); Color Urine Yellow; Glucose Urine UA 3+ (Negative); Ketones Urine Negative (Negative); Leukocyte Esterase Urine Negative (Negative); Nitrite Urine Negative (Negative); Protein Urine Negative (Negative); Specific Gravity Urine 1.031 (1.000-1.030); Urobilinogen Urine Negative (Negative); pH Urine 5.5 (4.5-7.5)
[2019-08-04 02:45] LABS: Alanine Aminotransferase 29 U/L (12-78); Albumin Level 4.2 gm/dl (3.4-5.0); Aspartate Aminotransferase 11 U/L (15-37); Blood Urea Nitrogen 15 mg/dl (7-18); Calcium 9.2 mg/dl (8.5-10.1); Carbon Dioxide 29 mmol/L (21-32); Chloride 101 mmol/L (98-107); Creatinine Clr Calc Pharmacy 68.9 ml/min; Est GFR (African American) 76.2; Est GFR (Non-African American) 65.7; Glucose 296 mg/dl (70-99); Magnesium 2.1 mg/dl (1.8-2.4); Potassium 4.3 mmol/L (3.5-5.1); Sodium 138 mmol/L (136-145)
[2019-08-04] MEDS ORDERED: dilTIAZem HCl 5 MG/ML 5 ML VIAL IV STA ×2 (02:53→03:51)
[2019-08-04] MEDS ORDERED: dilTIAZem HCL 30 MG TAB PO ONE (02:53)
[2019-08-04 02:56] LABS: Albumin Globulin Ratio 1.3 (0.9-2); Alkaline Phosphatase 105 U/L (45-117); Bilirubin,Total 0.6 mg/dl (0.2-1); Globulin 3.3 gm/dl (2.5-4.0); Total Protein 7.5 gm/dl (6.4-8.2); Troponin I < 0.015 ng/ml (0-0.045)
[2019-08-04 03:27] LABS: Lyme Ab IgG w/WB Rflx Negative (Negative); Lyme Ab IgM w/WB Rflx Negative (Negative)
--- NOTE | 2019-08-04 03:46 | Emergency Department Note ---
History of Present Illness General Chief complaint: Chest Pain Stated complaint: CHEST PAIN, SOB Time Seen by Provider: 08/04/19 02:04 History of Present Illness Maximum Pain Intensity: 8 This is a 63-year-old male presenting to the emergency department for evaluation of a strange sensation in his chest. He feels like his heart is racing, and also describes a hollow-like sensation in his chest. Evidently this began about 1 hour prior to arrival when he was getting ready for bed. The patient does not report any injuries or traumas. No fevers or chills. He does have a history of cardiac disease including stenting. He is on a daily aspirin. Additionally the patient is diabetic. No recent medication changes are reported. He is not having lightheadedness, dizziness, or abdominal pain. No nausea or vomiting. He rates his current discomfort an 8/10. Home Medications Home Medications Medication Instructions Recorded Confirmed Type aspirin 81 mg tablet,delayed 81 mg PO DAILY 06/24/18 08/04/19 History release cholecalciferol (vitamin D3) 2,000 2,000 units PO DAILY 06/24/18 08/04/19 History unit capsule coenzyme Q10 100 mg capsule 100 mg PO BID cap 03/08/19 08/04/19 History insulin glargine (U-100) 100 32 units SQ HS #45 ml 07/10/19 08/04/19 Rx unit/mL (3 mL) subcutaneous pen atorvastatin 80 mg tablet 80 mg PO DAILY #90 tab 07/22/19 08/04/19 Rx dulaglutide 1.5 mg/0.5 mL 1.5 mg SQ .COMPLEX #2 ml 07/22/19 08/04/19 Rx subcutaneous pen injector lisinopril 40 mg tablet 40 mg PO DAILY #90 tab 07/22/19 08/04/19 Rx metformin ER 750 mg 2,250 mg PO QAM #270 tab 07/22/19 08/04/19 Rx tablet,extended release 24 hr pantoprazole 40 mg tablet,delayed 40 mg PO BID #180 tab 07/22/19 08/04/19 Rx release metoprolol succinate 100 mg PO PM 08/04/19 08/04/19 History metoprolol succinate 200 mg PO QAM 08/04/19 08/04/19 History Allergies Allergy/AdvReac Type Severity Reaction Status Date / Time prasugrel Allergy Severe RASH Verified 08/04/19 02:52 clopidogrel Allergy Unknown rash Verified 08/04/19 02:52 nitroglycerin AdvReac Unknown HEADACHE Verified 08/04/19 02:52 oxycodone AdvReac Unknown UPSET Verified 08/04/19 02:52 STOMACH Past Med/Surg History Medical History Sternal pain (Chronic) PMR (polymyalgia rheumatica) (Chronic) Hyperlipidemia (Chronic) GERD without esophagitis (Chronic) Fibromyalgia (Chronic) CAD (coronary artery disease) (Chronic) Asthma (Chronic) Diabetes (Chronic) Heart disease (Chronic) Left rotator cuff tear (Chronic) Edwards's palsy (Chronic) Hypertension (Chronic) Cataract (Chronic) Barretts esophagus (Acute) CAD (coronary artery disease), [place] coronary artery (Acute) Cardiomyopathy (Acute) Chest pain (Acute) Coronary stent patent (Acute) Dyslipidemia (Acute) Fibromyalgia (Acute) HTN (hypertension) (Acute) History of Lyme disease (Acute) IDDM (insulin dependent diabetes mellitus) (Acute) Neck pain (Acute) Surgical History Status post angioplasty with stent (Chronic) History of repair of rotator cuff (Chronic) History of back surgery (Resolved) Social History Preferred Language: Sami Communication Ability: Effective 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 Beliefs That Will Affect Care: None marital status: Current Living Situation: Spouse current occupational status: retired Other Information That Helps Us Care for You: No Feels Safe at Home: Yes Safety Concerns: Feels Safe At This Time Smoking Status: Current some day smoker Tobacco Type: cigars ; Do You Dip or Chew Tobacco: No ; Second Hand Exposure: No ; Tobacco Cessation Education Requested by Patient: No Hx Alcohol Use: No Hx Substance Use: No Review of Systems A total of 10 systems reviewed and were otherwise negative Physical Exam Vital Signs Vital Signs - 24 hr 08/04/19 02:04 08/04/19 02:10 08/04/19 02:18 Temperature 36.6 C Temperature Source Oral Sepsis Action Taken by Nursing No Action Required Pulse Rate 114 H 146 H 138 H Pulse Rate [Bilateral Apical] Pulse Rate from SpO2 Sensor 137 H 118 H Respiratory Rate 20 17 20 Respiratory Effort / Characteristics Non-Labored Spontaneous Respiratory Depth Normal Blood Pressure 141/72 H 128/104 H 113/90 Blood Pressure [Right Arm] Blood Pressure Mean 95 112 97 Blood Pressure Mean [Right Arm] Pulse Oximetry 98 98 97 Oxygen Delivery Method Room Air Room Air Oxygen Flow Rate 08/04/19 02:30 08/04/19 02:32 08/04/19 02:35 Temperature Temperature Source Sepsis Action Taken by Nursing Pulse Rate 131 H 139 H 133 H Pulse Rate [Bilateral Apical] Pulse Rate from SpO2 Sensor 126 H 136 H 136 H Respiratory Rate 17 22 19 Respiratory Effort / Characteristics Respiratory Depth Blood Pressure 135/85 114/83 125/79 Blood Pressure [Right Arm] Blood Pressure Mean 101 93 94 Blood Pressure Mean [Right Arm] Pulse Oximetry 96 96 97 Oxygen Delivery Method Oxygen Flow Rate 08/04/19 02:38 08/04/19 02:42 08/04/19 03:00 Temperature Temperature Source Sepsis Action Taken by Nursing Pulse Rate 140 H Pulse Rate [Bilateral Apical] Pulse Rate from SpO2 Sensor 123 H Respiratory Rate 16 Respiratory Effort / Characteristics Respiratory Depth Blood Pressure 118/68 Blood Pressure [Right Arm] Blood Pressure Mean 84 Blood Pressure Mean [Right Arm] Pulse Oximetry 95 97 100 Oxygen Delivery Method Room Air Room Air Oxygen Flow Rate 08/04/19 03:04 08/04/19 03:05 08/04/19 03:07 Temperature Temperature Source Sepsis Action Taken by Nursing Pulse Rate 121 H 119 H Pulse Rate [Bilateral Apical] Pulse Rate from SpO2 Sensor 101 H 120 H Respiratory Rate 17 22 Respiratory Effort / Characteristics Respiratory Depth Blood Pressure 110/72 104/71 Blood Pressure [Right Arm] Blood Pressure Mean 84 82 Blood Pressure Mean [Right Arm] Pulse Oximetry 98 98 96 Oxygen Delivery Method Nasal Cannula Nasal Cannula Oxygen Flow Rate 3 2 08/04/19 03:12 Temperature Temperature Source Sepsis Action Taken by Nursing Pulse Rate Pulse Rate [Bilateral Apical] 115 H Pulse Rate from SpO2 Sensor Respiratory Rate 20 Respiratory Effort / Characteristics Non-Labored Respiratory Depth Normal Blood Pressure Blood Pressure [Right Arm] 104/71 Blood Pressure Mean Blood Pressure Mean [Right Arm] 82 Pulse Oximetry 96 Oxygen Delivery Method Room Air Oxygen Flow Rate VITALS: Vitals are noted on the nurse's note and reviewed by myself. Vital signs with market tachycardia. Blood pressure stable. GENERAL: Well-developed, well-nourished, white male who appears in mild discomfort. HEAD: Normocephalic atraumatic. NECK: Supple without nuchal rigidity. No lymphadenopathy. No thyromegaly. Cervical spine is nontender. HEART: Tachycardic rate LUNGS: Clear to auscultation bilaterally without wheezes, rales or rhonchi. No retractions or accessory muscle use. ABDOMEN: Positive normal bowel sounds x 4. Soft, nontender, without masses or organomegaly. No guarding or rebound tenderness. MUSCULOSKELETAL: No muscle atrophy, erythema, or edema noted. Full range of motion in all extremities. NEURO: Patient was alert and oriented to person place and time. CN II through XII grossly intact. Course Administered Medications Discontinued Medications Diltiazem HCl (Cardizem) 10 mg IV NOW STA Stop: 08/04/19 02:54 Last Admin: 08/04/19 03:01 Dose: 10 mg Documented by: [id number] Cosigned by: [id number] Diltiazem HCl (Cardizem) 30 mg PO NOW ONE Stop: 08/04/19 02:54 Last Admin: 08/04/19 03:01 Dose: 30 mg Documented by: [id number] Diltiazem HCl (Cardizem) 10 mg IV NOW STA Stop: 08/04/19 03:52 Last Admin: 08/04/19 04:29 Dose: Not Given Documented by: [id number] Enoxaparin Sodium (Lovenox) 129 mg SQ NOW STA Stop: 08/04/19 04:15 Last Admin: 08/04/19 04:25 Dose: 129 mg Documented by: [id number] Sodium Chloride (Nss 1000ml) 1,000 mls @ 999 mls/hr IV .Q1H1M LUCY Stop: 08/04/19 03:30 Last Infusion: 08/04/19 03:30 Dose: 0 mls/hr Documented by: [id number] Admin: 08/04/19 02:26 Dose: 999 mls/hr Documented by: [id number] Metoprolol Tartrate (Lopressor) 5 mg IV NOW STA Stop: 08/04/19 02:25 Last Admin: 08/04/19 02:30 Dose: 5 mg Documented by: [id number] Medical Decision Making Differential Diagnosis Differential diagnosis includes, but is not limited to: Myocardial infarction, dysrhythmia, pericarditis, pneumothorax, aortic aneurysm/dissection, DVT/PE, anxiety, GERD, PUD, electrolyte imbalance, thyroid disorder, pneumonia, bronchitis, pancreatitis, and others Laboratory Data Result diagrams: 08/04/19 02:17 08/04/19 02:17 Lab Results 08/04/19 08/04/19 08/04/19 Range/Units 02:17 02:17 02:17 WBC 9.81 (4.8-10.8) K/uL RBC 5.51 (4.7-6.1) M/uL Hgb 17.7 (14.0-18.0) g/dL Hct 50.7 (42-52) % MCV 92.0 (80-100) fL MCH 32.1 (25-34) pg MCHC 34.9 (32-36) g/dL RDW Std Deviation 43.3 (36.4-46.3) fL RDW Coeff of Reny 12.8 (11.5-14.5) % Plt Count 257 (130-400) K/uL MPV 10.2 (7.4-10.4) fL Immature Gran % (Auto) 0.2 % Neut % (Auto) 80.4 % Lymph % (Auto) 12.3 % [place] % (Auto) 6.0 % Eos % (Auto) 0.9 % Baso % (Auto) 0.2 % Immature Gran # (Auto) 0.02 (0.00-0.02) K/uL Neut # (Auto) 7.88 H (1.4-6.5) K/uL Lymph # (Auto) 1.21 (1.2-3.4) K/uL [place] # (Auto) 0.59 (0.11-0.59) K/uL Eos # (Auto) 0.09 (0-0.5) K/uL Baso # (Auto) 0.02 (0-0.2) K/uL PT 10.3 (9.0-12.0) Seconds INR 1.0 (0.9-1.1) APTT 25.9 (21.0-31.0) Seconds PTT Ratio 1.0 Sodium 138 (136-145) mmol/L Potassium 4.3 (3.5-5.1) mmol/L Chloride 101 (98-107) mmol/L Carbon Dioxide 29 (21-32) mmol/L Anion Gap 8.0 (3-11) BUN 15 (7-18) mg/dl Creatinine 1.16 (0.6-1.4) mg/dl Est Cr Clr Drug Dosing 68.9 ml/min Est GFR ( Amer) 76.2 Est GFR (Non-Af Amer) 65.7 BUN/Creatinine Ratio 13.0 (10-20) Glucose 296 H (70-99) mg/dl Calcium 9.2 (8.5-10.1) mg/dl Magnesium 2.1 (1.8-2.4) mg/dl Total Bilirubin 0.6 (0.2-1) mg/dl AST 11 L (15-37) U/L ALT 29 (12-78) U/L Alkaline Phosphatase 105 (45-117) U/L Troponin I < 0.015 (0-0.045) ng/ml Total Protein 7.5 (6.4-8.2) gm/dl Albumin 4.2 (3.4-5.0) gm/dl Globulin 3.3 (2.5-4.0) gm/dl Albumin/Globulin Ratio 1.3 (0.9-2) TSH 1.620 (0.300-4.500) uIu/ml Urine Color Urine Appearance (Clear) Urine pH (4.5-7.5) Ur Specific [place] (1.000-1.030) Urine Protein (Negative) Urine Glucose (UA) (Negative) Urine Ketones (Negative) Urine Blood (Negative) Urine Nitrite (Negative) Urine Bilirubin (Negative) Urine Urobilinogen (Negative) Ur Leukocyte Esterase (Negative) Lyme Disease IgG Ab (Negative) Lyme Disease IgM Ab (Negative) 08/04/19 08/04/19 Range/Units 02:17 02:28 WBC (4.8-10.8) K/uL RBC (4.7-6.1) M/uL Hgb (14.0-18.0) g/dL Hct (42-52) % MCV (80-100) fL MCH (25-34) pg MCHC (32-36) g/dL RDW Std Deviation (36.4-46.3) fL RDW Coeff of Reny (11.5-14.5) % Plt Count (130-400) K/uL MPV (7.4-10.4) fL Immature Gran % (Auto) % Neut % (Auto) % Lymph % (Auto) % [place] % (Auto) % Eos % (Auto) % Baso % (Auto) % Immature Gran # (Auto) (0.00-0.02) K/uL Neut # (Auto) (1.4-6.5) K/uL Lymph # (Auto) (1.2-3.4) K/uL [place] # (Auto) (0.11-0.59) K/uL Eos # (Auto) (0-0.5) K/uL Baso # (Auto) (0-0.2) K/uL PT (9.0-12.0) Seconds INR (0.9-1.1) APTT (21.0-31.0) Seconds PTT Ratio Sodium (136-145) mmol/L Potassium (3.5-5.1) mmol/L Chloride (98-107) mmol/L Carbon Dioxide (21-32) mmol/L Anion Gap (3-11) BUN (7-18) mg/dl Creatinine (0.6-1.4) mg/dl Est Cr Clr Drug Dosing ml/min Est GFR ( Amer) Est GFR (Non-Af Amer) BUN/Creatinine Ratio (10-20) Glucose (70-99) mg/dl Calcium (8.5-10.1) mg/dl Magnesium (1.8-2.4) mg/dl Total Bilirubin (0.2-1) mg/dl AST (15-37) U/L ALT (12-78) U/L Alkaline Phosphatase (45-117) U/L Troponin I (0-0.045) ng/ml Total Protein (6.4-8.2) gm/dl Albumin (3.4-5.0) gm/dl Globulin (2.5-4.0) gm/dl Albumin/Globulin Ratio (0.9-2) TSH (0.300-4.500) uIu/ml Urine Color Yellow Urine Appearance Clear (Clear) Urine pH 5.5 (4.5-7.5) Ur Specific [place] 1.031 H (1.000-1.030) Urine Protein Negative (Negative) Urine Glucose (UA) 3+ H (Negative) Urine Ketones Negative (Negative) Urine Blood Negative (Negative) Urine Nitrite Negative (Negative) Urine Bilirubin Negative (Negative) Urine Urobilinogen Negative (Negative) Ur Leukocyte Esterase Negative (Negative) Lyme Disease IgG Ab Negative (Negative) Lyme Disease IgM Ab Negative (Negative) ECG Data Additional Comments: EKG #1 Atrial fibrillation with rapid ventricular response @[address] and T wave abnormality When compared with ECG of 06-DEC-2017 06:58: - Atrial fibrillation has replaced Sinus rhythm - Non-specific change in ST segment in Inferior leads ST now depressed in Anterolateral leads - Nonspecific T wave abnormality, worse in Inferior leads - Nonspecific T wave abnormality now evident in Lateral leads EKG#2 Atrial fibrillation with rapid ventricular response @137 Nonspecific T wave abnormality When compared with ECG of 04-AUG-2019 02:06, (unconfirmed) ST no longer depressed in Anterolateral leads MDM Narrative Physical exam and history were performed. Nursing notes, EMR, and Medication List were personally reviewed. Patient appears to have vague chest discomfort bringing him to the ER. The patient was seen immediately upon his presentation to her room as he was markedly tachycardic. EKG was performed and did identify atrial fibrillation with rapid ventricular response. The patient has not had this in the past. IV access was established and labs were obtained. He was hydrated with normal saline and given 5 mg IV Lopressor. He was placed on the awake overnight monitor. The patient blood work is as above and was reviewed. He does not have a significantly elevated white blood cell count, gross anemia, bandemia, or significant electrolyte imbalance. Sugar is elevated at almost 300. Troponin x1 is negative. Magnesium is within normal limits. His other labs are fairly nondiagnostic. Chest x-ray was without significant acute findings. He remained tachycardic in atrial fibrillation on the monitor. I did discuss the case with both my attending physician, Dr. Katz, as well as the on-call hospitalist, Dr. Jones. With assistance from Dr. Jones, the patient was given 10 mg IV Cardizem as well as 30 mg p.o. Cardizem. This did seem to improve his rate to around 110 to 115. On reevaluation the patient did feel much more comfortable. Overall he does not appear well for discharge home. Please see the hospitalist dictation for further patient course, plan, and disposition. The chart was completed utilizing [employer] Voice Recognition Software. Grammatical errors, random word insertions, pronoun errors, and incomplete sen tences are an occasional consequence of this system due to software limitations, ambient noise, and hardware issues. Any formal questions or concerns about the content, text, or information contained within the body of this dictation should be directly addressed to the provider for clarification. . Impression & Plan Atrial fibrillation with RVR, Heart palpitations Discharge Plan Visit Data *Final* Discharge Date/Time: 08/04/19 05:37 Chief Complaint: Chest Pain Stated Complaint: CHEST PAIN, SOB ED Provider: Vibha Katz ED Midlevel Provider: Shawn Hernandez Discharge Problem: Atrial fibrillation with RVR, Heart palpitations Patient Disposition: Admitted As Inpatient Discharge Instructions Interventions: ED Discharge Assessment Last Done: 08/04/19 05:37
--- NOTE | 2019-08-04 04:13 | Emergency Department Note ---
ED Visit Note I saw this patient in conjunction with Shawn Hernandez PA-C. I agree with his decision making and treatment plan. I evaluated the patient. He is in atrial fibrillation with rapid ventricular response. However, the heart rate has come down. His midsternal chest pain has subsided. Troponin was unremarkable. Heart: Tachycardic rate with an irregularly irregular rhythm. Lungs: Clear to auscultation bilaterally. The patient will be evaluated by the [facility]ist for further inpatient care. .
[2019-08-04] MEDS ORDERED: ENOXAPARIN 150 MG/ML SYR SQ STA (04:14)
[2019-08-04] MEDS ORDERED: ENOXAPARIN 1.5 MG/KG SC SCH (04:15)
--- NOTE | 2019-08-04 04:19 | History & Physical Report ---
Date of Service August 04, 2019 Assessment & Plan (1) Atrial fibrillation with RVR: 63-year-old male with a history of diabetes, hypertension, hyperlipidemia, CAD status post 6 stents, tobacco use, asthma presents with feelings of chest tightness and palpitations beginning at 1 AM. A. fib with RVR, new onset, chadsvASC is 5 Admit to telemetrycontinue to observe symptoms, pressures and rates Received metoprolol 5 mg IV in the ED, 10 mg Cardizem IV x2 and 30 mg Cardizem p.o. We will continue dosing Cardizem 30 mg p.o. 3 times daily Given a fluid bolus in the ED, continue maintenance fluids 80 cc/h Starting on therapeutic Lovenox, defer to day team regarding NOAC versus vitamin K antagonist On metoprolol succinate 200 mg in the a.m. and 100 mg in the p.m.dose was recently increased, controlling anginal symptoms well, hold morning dose if concern about pressures We will keep the patient n.p.o. overnight Hypertension/hyperlipidemia/CAD Continue atorvastatin, metoprolol, lisinopril Diabetes Continue glargine, sliding scale insulin GERD Continue PPI CODE STATUSfull Dietn.p.o. DVT prophylaxistherapeutic Lovenox (2) Hyperlipidemia: (3) GERD without esophagitis: (4) Asthma: (5) Diabetes: (6) Status post angioplasty with stent: (7) Cardiomyopathy, ischemic: (8) Heart palpitations: (9) Hypertension: History of Present Illness Primary Care Provider: KATELIN Uribe 63-year-old male with a history of diabetes, hypertension, hyperlipidemia, CAD status post 6 stents, tobacco use and asthma presents with feelings of chest tightness and palpitations beginning at 1 AM. He describes the chest tightness as a hollow feeling in his chest. He denies shortness of breath, but the patient did feel faint and had a headache. He said that the symptoms were similar to his MT. He denies any recent illness. He states that his anginal symptoms have been well controlled. He had a heart catheterization in March and subsequent to that his mortgage analyst increased his metoprolol dose to 200 mg in the a.m. and 100 mg in the p.m. Patient admits to smoking cigars, approximately 1/day. He is retired, but admits to being very active hunting, fishing and working on his property. Constitutional; denies fevers, chills, night sweats HEENT; denies runny nose, sore throat, sinus pressure CV; chest pain as described above, patient also had a fluttering feeling in his chest Respiratory; no shortness of breath, no wheezing, no cough Abdomen; no abdominal pain, no nausea/vomiting/diarrhea Allergies Allergy/AdvReac Type Severity Reaction Status Date / Time prasugrel Allergy Severe RASH Verified 08/04/19 02:52 clopidogrel Allergy Unknown rash Verified 08/04/19 02:52 nitroglycerin AdvReac Unknown HEADACHE Verified 08/04/19 02:52 oxycodone AdvReac Unknown UPSET Verified 08/04/19 02:52 STOMACH Home Medications Home Medications Medication Instructions Recorded Confirmed Type aspirin 81 mg tablet,delayed 81 mg PO DAILY 06/24/18 08/05/19 History release cholecalciferol (vitamin D3) 2,000 2,000 units PO DAILY 06/24/18 08/05/19 History unit capsule coenzyme Q10 100 mg capsule 100 mg PO BID cap 03/08/19 08/05/19 History insulin glargine (U-100) 100 32 units SQ HS #45 ml 07/10/19 08/05/19 Rx unit/mL (3 mL) subcutaneous pen atorvastatin 80 mg tablet 80 mg PO DAILY #90 tab 07/22/19 08/05/19 Rx dulaglutide 1.5 mg/0.5 mL 1.5 mg SQ .COMPLEX #2 ml 07/22/19 08/05/19 Rx subcutaneous pen injector metformin ER 750 mg 2,250 mg PO QAM #270 tab 07/22/19 08/05/19 Rx tablet,extended release 24 hr pantoprazole 40 mg tablet,delayed 40 mg PO BID #180 tab 07/22/19 08/05/19 Rx release apixaban [Eliquis] 5 mg PO BID #60 tab 08/04/19 08/05/19 Rx diltiazem HCl 120 mg PO QAM #30 cap 08/04/19 08/05/19 Rx lisinopril 20 mg PO DAILY #90 tab 08/04/19 08/05/19 Rx metoprolol succinate 100 mg PO PM 08/04/19 08/05/19 History metoprolol succinate 200 mg PO QAM 08/04/19 08/05/19 History methylprednisolone 4 mg tablet 4 mg PO DAILY 08/05/19 08/05/19 History Past Med/Surg History Medical History Sternal pain (Chronic) PMR (polymyalgia rheumatica) (Chronic) Hyperlipidemia (Chronic) GERD without esophagitis (Chronic) Fibromyalgia (Chronic) CAD (coronary artery disease) (Chronic) Asthma (Chronic) Diabetes (Chronic) Heart disease (Chronic) Left rotator cuff tear (Chronic) Edwards's palsy (Chronic) Hypertension (Chronic) Cataract (Chronic) Barretts esophagus (Acute) CAD (coronary artery disease), [place] coronary artery (Acute) Cardiomyopathy (Acute) Chest pain (Acute) Coronary stent patent (Acute) Dyslipidemia (Acute) Fibromyalgia (Acute) HTN (hypertension) (Acute) History of Lyme disease (Acute) IDDM (insulin dependent diabetes mellitus) (Acute) Neck pain (Acute) Surgical History S/P coronary artery stent placement Status post angioplasty with stent (Chronic) History of repair of rotator cuff (Chronic) History of back surgery (Resolved) Social History Preferred Language: Icelandic 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 Beliefs That Will Affect Care: None marital status: Current Living Situation: Spouse current occupational status: retired Feels Safe at Home: Yes Smoking Status: Current some day smoker Tobacco Type: cigars ; Second Hand Exposure: No ; Hx Alcohol Use: No Hx Substance Use: No Review of Systems Review of Systems: All systems reviewed & are unremarkable except as noted in HPI & below Physical Exam Constitutional: WD/WN, vitals as above Eyes: PERRL, conjunctivae normal, anicteric sclerae ENMT: external ear and nose normal, oropharynx normal Neck: trachea midline, no thyromegaly Respiratory: normal respiratory effort, lungs clear to auscultation Cardiovascular: Rate/Rhythm: + irregularly irregular Heart Sounds: no click, no murmur and no cardiac rub Gastrointestinal (Abdomen): normal bowel sounds, soft, nontender, no hepatosplenomegaly Musculoskeletal: no cyanosis or clubbing, extremities motor strength 5/5 Skin: no rashes, warm and dry Neurologic: PERRL, EOMI, accommodation nl, no face palsy, no dysarthria Psychiatric: A+Ox3, euthymic affect Results & Data Vital Signs (Past 12 Hours) Vital Signs Temp Pulse Pulse Resp BP BP Pulse Ox 08/04/19 03:12 115 H 20 104/71 96 08/04/19 03:07 119 H 22 104/71 96 08/04/19 03:05 121 H 17 110/72 98 08/04/19 03:04 98 08/04/19 03:00 140 H 16 118/68 100 08/04/19 02:42 97 08/04/19 02:38 95 08/04/19 02:35 133 H 19 125/79 97 08/04/19 02:32 139 H 22 114/83 96 08/04/19 02:30 131 H 17 135/85 96 08/04/19 02:18 138 H 20 113/90 97 08/04/19 02:10 146 H 17 128/104 H 98 08/04/19 02:04 36.6 C 114 H 20 141/72 H 98 Code Status & VTE Plan Code Status Full code VTE Prophylaxis Plan VTE Prophylaxis will be ordered: Yes Supervising Physician Co-Signing Physician Notes Attending addendum: I have physically seen this patient, have supervised the medical residents activities, and agree with the H&P unless as otherwise noted. Assessment and Plan: Atrial fibrillation with RVR- The patient will be admitted to telemetry for serial cardiac enzymes, serial EKG's, cardiac rhythm monitoring and a 2-D echocardiogram with Dopplers. No improvement with metoprolol 5 mg IV in the ED. Cardizem 10 mg IV plus Cardizem 30 mg p.o. now and then 4 times daily. Continue metoprolol succinate at current dosing. Continue lisinopril. Consult cardiology. Remainder of orders and notations as noted. PG Care Time/CCT Total # of Minutes Spent Total Time Spent with Patient: Total time spent is greater than 50% in coordination of care (as documented) at patient's floor/unit and/or counseling patient: Resident Activity Tracking Resident Involvement: Resident Care Provided Care Provided: Adult Hospital Medicine
[2019-08-04] MEDS ORDERED: ONDANSETRON INJ 2 MG/ML 2 ML VIAL IV PRN (05:55)
[2019-08-04] MEDS ORDERED: ACETAMINOPHEN 325 MG TAB PO PRN (05:55)
[2019-08-04] MEDS ORDERED: NITROGLYCERIN SL 0.4 MG/TAB TAB SL PRN (05:55)
[2019-08-04] MEDS ORDERED: MoRPHine SULFATE 2 MG/ML CARP IV PRN (05:55)
[2019-08-04] MEDS ORDERED: CARBOHYDRATES FOR HYPOGLYCEMIA PO PRN (06:15)
[2019-08-04] MEDS ORDERED: GLUCOSE 10 TABS/TUBE PO PRN (06:15)
[2019-08-04] MEDS ORDERED: DEXTROSE 50% 50 ML SYRINGE IV PRN (06:15)
[2019-08-04] MEDS ORDERED: GLUCAGON FOR INJ 1 MG VIAL SQ PRN (06:15)
[2019-08-04] MEDS ORDERED: GLUCOSE 40% GEL 15 GM TUBE PO PRN (06:15)
--- NOTE | 2019-08-04 06:41 | XRay Report ---
XR chest 1V portable CLINICAL HISTORY: palpitations COMPARISON STUDY: Chest radiograph December 05, 2017. FINDINGS: Lung volumes are normal. Linear left basilar opacity suggests atelectasis. There is no pneu mothorax or pleural effusion. Cardiac size is normal. Mediastinal contours are normal. There is no ev idence for pulmonary edema. IMPRESSION: No acute cardiopulmonary findings. Electronically signed by: Rivera Swanson M.D. 08/04/2019 6:40 AM
[2019-08-04] MEDS: INSULIN ASPART 100 UNITS/ML 3 ML PEN SC SCH ×3 (07:51→16:42)
[2019-08-04] MEDS ORDERED: INFLUENZA ADMINISTRATION CHARGE ONE (08:30)
[2019-08-04] MEDS ORDERED: INFLUENZA VACCINE HIGH DOSE 65+ 0.5 ML SYR IM ONE (08:30)
[2019-08-04] MEDS ORDERED: PANTOprazole 40 MG TAB PO SCH (09:00)
[2019-08-04] MEDS ORDERED: METOPROLOL SUCC 50MG EXT REL TAB PO SCH ×2 (09:00→21:00)
[2019-08-04] MEDS ORDERED: ASPIRIN 81 MG ECTAB PO SCH (09:00)
[2019-08-04] MEDS ORDERED: lisinopriL 40 MG TAB PO SCH ×2 (09:00)
[2019-08-04] MEDS ORDERED: ATORVASTATIN 40 MG TAB PO SCH (09:00)
[2019-08-04 11:20] VITALS: O2SAT 96
--- NOTE | 2019-08-04 13:50 | Cardiology Consultation ---
Date of Consultation August 04, 2019 Assessment & Plan (1) Atrial fibrillation with RVR: (2) CAD (coronary artery disease): (3) S/P coronary artery stent placement: (4) Hyperlipidemia: (5) Hypertension: (6) Chest pain: ASSESSMENT/PLAN: 1. Atrial fibrillation with rapid ventricular response: He has paroxysmal atrial fibrillation which is a new diagnosis for him. We discussed the diagnosis in detail. We discussed potential treatment strategies such as rate control, rhythm control, and ablation. Recommend rate control strategy for now. His symptoms of chest discomfort resolved with improved rate control. Start diltiazem 120 mg daily in addition to his metoprolol succinate 300 mg daily. If he has significant symptomatic recurrence, could make further adjustments or initiate rhythm control strategy. We discussed stroke risk reduction with anticoagulation therapy. He has elevated chads Vasc score. He was agreeable. Consider novel agent. Recommend echocardiogram, which can be done as an outpatient if he is being discharged now. 2. CAD status post multiple PCI: He did present with chest discomfort which is likely related to the atrial fibrillation in the setting of documented CAD. Troponins are negative. Continue aspirin 81 mg daily indefinitely. Continue beta-evan.Continue high-intensity statin therapy. 3. Chest pain: As above. Likely due to rapid heart rate in the setting of underlying CAD. 4. Hypertension: Blood pressure normal. Continue current regimen. 5. Dyslipidemia: Continue high-intensity statin therapy. 6. Disposition: He can be discharged home from a cardiac perspective. Recommend follow-up next week with Dr. Lowery, his primary r developer. Plan of care discussed with Dr. Quintana, his primary r developer. 45 minutes spent, with greater than 50% time spent counseling patient and coordinating care. Thank you for allowing me to participate in the care of your patient. Please call for any other questions or concerns. Sincerely, Delroy Rachel M.D. History of Present Illness Reason for Consultation: AFib with RVR Requesting Physician: Jean Marie Quintana MD Attending Physician: Jean Marie Quintana MD History of Present Illness Mr. Ayers is a very pleasant 63-year-old gentleman with history significant for CAD status post multiple stents, diabetes, hypertension, and dyslipidemia. His primary r developer is Dr. Lowery. He has had the following studies/procedures: 1. PCI 2007: RCA stent x2. 2. Cardiac catheterization 2011: Acute anterior TN. Lad 4 x 28 mm JASWANT. 3. Cardiac catheterization February 2012: Persistent chest discomfort. Distal LAD 2.5 x 12 mm Xience. Mid circumflex 3 x 23 mm Xience. 4. Cardiac catheterization May 2014: Chest discomfort. Mid to distal LAD 90%. Underwent PCI with 2.5 x 18 mm resolute JASWANT. 5. Nuclear stress 11/28/2018: Negative for ischemia. EF 61%. Normal wall motion. 6. Cardiac catheterization 03/25/2019: Patent proximal LAD stent. Mid LAD 30- 40%. Distal LAD stents widely patent. Small D1 subtotal occlusion with IZA 1 flow. Mid circumflex stent widely patent into OM 2. Small caliber OM1 100% filling via [id number] and [id number] collaterals. Small left PL ostial 70%. Dominant RCA. Patent proximal to mid RCA stents. Distal RCA 50% (FFR 0.8). LVEDP 6. He presented to [facility] on 08/04/2019 with chest discomfort and palpitations. He described the chest discomfort as substernal that occurred at approximately 1:00 a.m. while laying in bed. It radiated to the right side of his chest. He described it as similar as prior angina but also as an emptiness. He states that overall the symptoms are difficult to explain. When he presented to the emergency department he was found to be in atrial fibrillation with rapid ventricular response which is a new diagnosis for him. He was given intravenous diltiazem. When his heart rate improved, the substernal chest discomfort and palpitations also resolved. The right-sided chest discomfort however continued to linger, however much improved. He then converted to sinus rhythm at 4:25 a.m.. He admits that he had mild shortness of breath feeling as though he could not get enough air during the episodes but this has since resolved. He denies orthopnea, syncope, near-syncope, edema, or bleeding such as melena, hematochezia, or hematuria. Review of systems: As above. Review of systems otherwise negative/unr emarkable. Family history: Father diagnosed with CAD in his 50s. Social history: Occasional cigar. No alcohol. No drugs. and lives at home with his . Two sons. Grandchildren. Retired. Allergies Allergy/AdvReac Type Severity Reaction Status Date / Time prasugrel Allergy Severe RASH Verified 08/04/19 02:52 clopidogrel Allergy Unknown rash Verified 08/04/19 02:52 nitroglycerin AdvReac Unknown HEADACHE Verified 08/04/19 02:52 oxycodone AdvReac Unknown UPSET Verified 08/04/19 02:52 STOMACH Home Medications Home Medications Medication Instructions Recorded Confirmed Type aspirin 81 mg tablet,delayed 81 mg PO DAILY 06/24/18 08/04/19 History release cholecalciferol (vitamin D3) 2,000 2,000 units PO DAILY 06/24/18 08/04/19 History unit capsule coenzyme Q10 100 mg capsule 100 mg PO BID cap 03/08/19 08/04/19 History insulin glargine (U-100) 100 32 units SQ HS #45 ml 07/10/19 08/04/19 Rx unit/mL (3 mL) subcutaneous pen atorvastatin 80 mg tablet 80 mg PO DAILY #90 tab 07/22/19 08/04/19 Rx dulaglutide 1.5 mg/0.5 mL 1.5 mg SQ .COMPLEX #2 ml 07/22/19 08/04/19 Rx subcutaneous pen injector lisinopril 40 mg tablet 40 mg PO DAILY #90 tab 07/22/19 08/04/19 Rx metformin ER 750 mg 2,250 mg PO QAM #270 tab 07/22/19 08/04/19 Rx tablet,extended release 24 hr pantoprazole 40 mg tablet,delayed 40 mg PO BID #180 tab 07/22/19 08/04/19 Rx release apixaban [Eliquis] 5 mg PO BID #60 tab 08/04/19 Rx metoprolol succinate 100 mg PO PM 08/04/19 08/04/19 History metoprolol succinate 200 mg PO QAM 08/04/19 08/04/19 History Patient History Medical History Sternal pain (Chronic) PMR (polymyalgia rheumatica) (Chronic) Hyperlipidemia (Chronic) GERD without esophagitis (Chronic) Fibromyalgia (Chronic) CAD (coronary artery disease) (Chronic) Asthma (Chronic) Diabetes (Chronic) Heart disease (Chronic) Left rotator cuff tear (Chronic) Edwards's palsy (Chronic) Hypertension (Chronic) Cataract (Chronic) Barretts esophagus (Acute) CAD (coronary artery disease), cabazon coronary artery (Acute) Cardiomyopathy (Acute) Chest pain (Acute) Coronary stent patent (Acute) Dyslipidemia (Acute) Fibromyalgia (Acute) HTN (hypertension) (Acute) History of Lyme disease (Acute) IDDM (insulin dependent diabetes mellitus) (Acute) Neck pain (Acute) Surgical History Status post angioplasty with stent (Chronic) History of repair of rotator cuff (Chronic) History of back surgery (Resolved) Social History Preferred Language: Fijian Communication Ability: Effective 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 Alert and oriented. HEENT: Anicteric sclera. Neck: No JVD. No bruits. Normal carotid upstrokes bilaterally. Cardiac: PMI was nondisplaced. No ventricular heave. Regular rate and rhythm. Normal S1-S2. No murmurs, rubs, or gallops. Pulmonary: Clear to auscultation bilaterally without wheezes, rales, or rhonchi. Abdomen: Soft, nontender, nondistended, with normoactive bowel sounds. No bruits noted. Extremities: 2+ radial pulses bilaterally. 2+ posterior tibialis pulses bilaterally. No edema or cyanosis. No palpable cords. Psychiatric: Affect appears appropriate. Results & Data Vital Signs (Past 12 Hours) Vital Signs Temp Pulse Pulse Resp BP BP Pulse Ox 08/04/19 11:18 36.7 C 73 18 123/70 96 08/04/19 07:11 36.9 C 74 18 109/64 95 08/04/19 05:56 36.6 C 88 18 136/77 95 08/04/19 05:30 90 20 111/71 94 08/04/19 05:00 89 24 110/72 97 08/04/19 04:30 89 22 115/74 98 08/04/19 04:05 121 H 20 98/68 L 97 08/04/19 04:00 124 H 17 88/73 L 97 08/04/19 03:12 115 H 20 104/71 96 08/04/19 03:07 119 H 22 104/71 96 08/04/19 03:05 121 H 17 110/72 98 08/04/19 03:04 98 08/04/19 03:00 140 H 16 118/68 100 08/04/19 02:42 97 08/04/19 02:38 95 08/04/19 02:35 133 H 19 125/79 97 08/04/19 02:32 139 H 22 114/83 96 08/04/19 02:30 131 H 17 135/85 96 08/04/19 02:18 138 H 20 113/90 97 08/04/19 02:10 146 H 17 128/104 H 98 08/04/19 02:04 36.6 C 114 H 20 141/72 H 98 Laboratory Results Laboratory Results - last 24 hr 08/04/19 08/04/19 08/04/19 02:17 02:17 02:17 WBC 9.81 RBC 5.51 Hgb 17.7 Hct 50.7 MCV 92.0 MCH 32.1 MCHC 34.9 RDW Std Deviation 43.3 RDW Coeff of Reny 12.8 Plt Count 257 MPV 10.2 Immature Gran % (Auto) 0.2 Neut % (Auto) 80.4 Lymph % (Auto) 12.3 [place] % (Auto) 6.0 Eos % (Auto) 0.9 Baso % (Auto) 0.2 Immature Gran # (Auto) 0.02 Neut # (Auto) 7.88 H Lymph # (Auto) 1.21 [place] # (Auto) 0.59 Eos # (Auto) 0.09 Baso # (Auto) 0.02 PT 10.3 INR 1.0 APTT 25.9 PTT Ratio 1.0 Sodium 138 Potassium 4.3 Chloride 101 Carbon Dioxide 29 Anion Gap 8.0 BUN 15 Creatinine 1.16 Est Cr Clr Drug Dosing 68.9 Est GFR ( Amer) 76.2 Est GFR (Non-Af Amer) 65.7 BUN/Creatinine Ratio 13.0 Glucose 296 H POC Glucose Calcium 9.2 Magnesium 2.1 Total Bilirubin 0.6 AST 11 L ALT 29 Alkaline Phosphatase 105 Troponin I < 0.015 Total Protein 7.5 Albumin 4.2 Globulin 3.3 Albumin/Globulin Ratio 1.3 TSH 1.620 Urine Color Urine Appearance Urine pH Ur Specific [place] Urine Protein Urine Glucose (UA) Urine Ketones Urine Blood Urine Nitrite Urine Bilirubin Urine Urobilinogen Ur Leukocyte Esterase Lyme Disease IgG Ab Lyme Disease IgM Ab Hepatitis C Ab Screen 08/04/19 08/04/19 08/04/19 02:17 02:17 02:28 WBC RBC Hgb Hct MCV MCH MCHC RDW Std Deviation RDW Coeff of Reny Plt Count MPV Immature Gran % (Auto) Neut % (Auto) Lymph % (Auto) [place] % (Auto) Eos % (Auto) Baso % (Auto) Immature Gran # (Auto) Neut # (Auto) Lymph # (Auto) [place] # (Auto) Eos # (Auto) Baso # (Auto) PT INR APTT PTT Ratio Sodium Potassium Chloride Carbon Dioxide Anion Gap BUN Creatinine Est Cr Clr Drug Dosing Est GFR ( Amer) Est GFR (Non-Af Amer) BUN/Creatinine Ratio Glucose POC Glucose Calcium Magnesium Total Bilirubin AST ALT Alkaline Phosphatase Troponin I Total Protein Albumin Globulin Albumin/Globulin Ratio TSH Urine Color Yellow Urine Appearance Clear Urine pH 5.5 Ur Specific [place] 1.031 H Urine Protein Negative Urine Glucose (UA) 3+ H Urine Ketones Negative Urine Blood Negative Urine Nitrite Negative Urine Bilirubin Negative Urine Urobilinogen Negative Ur Leukocyte Esterase Negative Lyme Disease IgG Ab Negative Lyme Disease IgM Ab Negative Hepatitis C Ab Screen Neg 08/04/19 08/04/19 08/04/19 07:29 10:05 11:16 WBC RBC Hgb Hct MCV MCH MCHC RDW Std Deviation RDW Coeff of Reny Plt Count MPV Immature Gran % (Auto) Neut % (Auto) Lymph % (Auto) [place] % (Auto) Eos % (Auto) Baso % (Auto) Immature Gran # (Auto) Neut # (Auto) Lymph # (Auto) [place] # (Auto) Eos # (Auto) Baso # (Auto) PT INR APTT PTT Ratio Sodium Potassium Chloride Carbon Dioxide Anion Gap BUN Creatinine Est Cr Clr Drug Dosing Est GFR ( Amer) Est GFR (Non-Af Amer) BUN/Creatinine Ratio Glucose POC Glucose 175 H 139 H Calcium Magnesium Total Bilirubin AST ALT Alkaline Phosphatase Troponin I < 0.015 Total Protein Albumin Globulin Albumin/Globulin Ratio TSH Urine Color Urine Appearance Urine pH Ur Specific [place] Urine Protein Urine Glucose (UA) Urine Ketones Urine Blood Urine Nitrite Urine Bilirubin Urine Urobilinogen Ur Leukocyte Esterase Lyme Disease IgG Ab Lyme Disease IgM Ab Hepatitis C Ab Screen Diagnostic Findings Telemetry personally reviewed: Atrial fibrillation converted to sinus rhythm at 4:25 a.m.. ECGs personally reviewed: ECG 08/04/2019 at 2:06 a.m.: AFib with RVR [address]/T-wave abnormality. ECG 08/04/2019 at 2:55 a.m.: AFib with RVR 137 bpm. Nonspecific T-wave abnormality. ECG 08/04/2019 at 5:06 a.m.: Sinus rhythm 90 bpm. ECG 08/04/2019 at 9:47 a.m.: Sinus rhythm 79 bpm. Cardiac catheterization and nuclear stress report reviewed as noted above. Chest x-ray 08/04/2019: No acute cardiopulmonary findings per Radiology. Medications Administered Current Inpatient Medications Acetaminophen (Tylenol) 650 mg PO Q4H PRN PRN Reason: Pain or Fever Stop: 09/03/19 05:54 Apixaban (Eliquis) 5 mg PO BID [facility] Stop: 09/03/19 20:59 Aspirin (Ecotrin Ectab) 81 mg PO DAILY [facility] Stop: 09/03/19 08:59 Last Admin: 08/04/19 07:52 Dose: 81 mg Documented by: Atorvastatin Calcium (Lipitor) 80 mg PO DAILY [facility] Stop: 09/03/19 08:59 Last Admin: 08/04/19 07:52 Dose: 80 mg Documented by: Dextrose (Dextrose 50%) 25 - 50 ml IV UD PRN; Protocol PRN Reason: Hypoglycemia Protocol Stop: 09/03/19 06:14 Glucagon (Glucagen) 1 mg SQ UD PRN; Protocol PRN Reason: Hypoglycemia Protocol Stop: 09/03/19 06:14 Glucose (Glucose 40%) 15 - 30 gm PO UD PRN; Protocol PRN Reason: Hypoglycemia Protocol Stop: 09/03/19 06:14 Glucose (Dex4 Glucose) 4 - 8 tabs PO UD PRN; Protocol PRN Reason: Hypoglycemia Protocol Stop: 09/03/19 06:14 Sodium Chloride (Nss 1000ml) 1,000 mls @ 80 mls/hr IV .[id number] LUCY Stop: 09/03/19 05:54 Last Admin: 08/04/19 06:00 Dose: 80 mls/hr Documented by: Insulin Aspart (Novolog Flexpen) 0 units SC ACHS [facility] Stop: 09/03/19 07:29 Last Admin: 08/04/19 11:52 Dose: Not Given Documented by: Insulin Glargine (Lantus Solostar Pen) 32 units SQ HS [facility] Stop: 09/03/19 20:59 Lisinopril (Zestril) 20 mg PO DAILY [facility]UCY Stop: 09/03/19 08:59 Last Admin: 08/04/19 09:17 Dose: 20 mg Documented by: Metoprolol Succinate (Toprol Xl) 200 mg PO QAM [facility] Stop: 09/03/19 08:59 Last Admin: 08/04/19 07:53 Dose: 200 mg Documented by: Metoprolol Succinate (Toprol Xl) 100 mg PO PM [facility] Stop: 09/03/19 20:59 Miscellaneous (Carbohydrates For Hypoglycemia) 15 - 30 gm PO UD PRN PRN Reason: Hypoglycemia Treatment Stop: 09/03/19 06:14 Morphine Sulfate (Morphine Sulfate) 2 mg IV Q30M PRN PRN Reason: Chest Pain Stop: 08/18/19 05:54 Nitroglycerin (Nitrostat) 0.4 mg SL UD PRN PRN Reason: Chest Pain Stop: 09/03/19 05:54 Ondansetron HCl (Zofran) 4 mg IV Q6H PRN PRN Reason: Nausea Stop: 09/03/19 05:54 Pantoprazole Sodium (Protonix) 40 mg PO BID [facility] Stop: 09/03/19 08:59 Last Admin: 08/04/19 07:52 Dose: 40 mg Documented by: Pneumococcal Polyvalent Vaccine (Pneumovax-23) 25 mcg IM .ONCE ONE Stop: 08/04/19 14:01 PG Care Time/CCT Total # of Minutes Spent Total Time Spent with Patient: Total time spent is greater than 50% in coordination of care (as documented) at patient's floor/unit and/or counseling patient:
[2019-08-04] MEDS ORDERED: PNEUMOCOCCAL ADMINISTRATION CHARGE ONE (14:00)
[2019-08-04] MEDS ORDERED: PNEUMOCOCCAL POLYSACCHARIDES 25 MCG/0.5 ML VIAL/SYR IM ONE (14:00)
[2019-08-04 15:36] VITALS: BP 125/73; PULSE 76; TEMP 98.2
[2019-08-04] MEDS ORDERED: APIXABAN 5 MG TABLET PO SCH (21:00)
[2019-08-04] MEDS ORDERED: INSULIN GLARGINE SOLOSTAR 100 UNITS/ML 3 ML PEN SQ SCH (21:00)
== END 2019-08-04 17:19 | disposition home or self-care (01) | DRG 310 ==
LOC: ED 02:01 → 2S 02:01 → SUATTDRO 03:49 → 2S 05:37

== ENCOUNTER 2022-11-15 19:32 | Observation (INO) ==
[2022-11-15] MEDS ORDERED: dilTIAZem HCl 5 MG/ML 5 ML VIAL IV STA ×2 (19:46→21:34)
--- NOTE | 2022-11-15 19:51 | Emergency Department Note ---
History of Present Illness General Chief complaint: Chest Pain Stated complaint: CHEST PAIN, LEFT ARM PAIN,HEADACHE Time Seen by Provider: 11/15/22 19:42 History of Present Illness Maximum Pain Intensity: 10 66-year-old male presents emergency department has a history of coronary artery disease and atrial fibrillation he is on Eliquis, states last night he developed some chest pain and approximately 1 hour ago it worsened with radiation to left arm. Patient noticed that his heart rate had increased. Patient takes metoprolol and Eliquis for A-fib. Patient denies any nausea vomiting or diaphoresis. Patient rates the pain moderate. There were no other mitigating or alleviating factors Home Medications Medication Instructions Recorded Confirmed Type aspirin 81 mg tablet,delayed 81 mg PO DAILY 06/24/18 11/15/22 History release (Adult Aspirin Regimen) cholecalciferol (vitamin D3) 50 2,000 units PO DAILY 06/24/18 11/15/22 History mcg (2,000 unit) capsule coenzyme Q10 100 mg capsule 100 mg PO BID 03/08/19 11/15/22 History nitroglycerin 0.4 mg sublingual 0.4 mg sublingual Q5M PRN chest 11/02/19 11/15/22 History tablet pain pen needle, diabetic 31 gauge x #100 ea 10/04/21 11/15/22 Rx 3/16" (BD Ultra-Fine Mini Pen Needle) insulin glargine 100 unit/mL (3 45 unit (0.45 mL) subcut HS #45 mL 11/14/21 11/15/22 Rx mL) subcutaneous pen (Basaglar KwikPen U-100 Insulin) atorvastatin 80 mg tablet (Lipitor) 80 mg PO DAILY #90 tabs 02/08/22 11/15/22 Rx metformin 1,000 mg tablet 1,000 mg PO BID #180 tabs 06/25/22 11/15/22 Rx dulaglutide 3 mg/0.5 mL 3 mg (0.5 mL) subcut .COMPLEX #2 mL 07/20/22 11/15/22 Rx [facility] metoprolol succinate 100 mg 100 mg PO .COMPLEX #270 tabs 08/15/22 11/15/22 Rx tablet,extended release 24 hr apixaban 5 mg tablet (Eliquis) 5 mg PO BID #180 tabs 08/27/22 11/15/22 Rx methylprednisolone 2 mg tablet 2 mg PO DAILY #90 tabs 09/25/22 11/15/22 Rx prednisone 10 mg tablets in a dose 10 mg PO UD #1 packet 11/13/22 11/15/22 Rx pack Allergies Allergy/AdvReac Type Severity Reaction Status Date / Time prasugrel Allergy Severe RASH Verified 11/15/22 10:47 clopidogrel Allergy Unknown rash Verified 11/15/22 10:47 nitroglycerin AdvReac Unknown HEADACHE Verified 11/15/22 10:47 oxycodone AdvReac Unknown UPSET Verified 11/15/22 10:47 STOMACH Past Med/Surg History Medical History Antiplatelet or antithrombotic long-term use Asthma Barretts esophagus Edwards's palsy CAD (coronary artery disease) CAD (coronary artery disease), belkofski coronary artery Cardiomyopathy Cataract Chest pain Chronic anticoagulation Chronic back pain Congestion of nasal sinus Coronary stent patent Cough Diabetes Dyslipidemia Fibromyalgia Fibromyalgia GERD without esophagitis Heart disease History of Lyme disease HTN (hypertension) Hyperlipidemia Hypertension IDDM (insulin dependent diabetes mellitus) Left rotator cuff tear Lumbar facet joint syndrome Lumbar postlaminectomy syndrome Lumbar radiculopathy Myofascial pain Neck pain Paroxysmal atrial fibrillation PMR (polymyalgia rheumatica) Right shoulder pain Sore throat Spinal stenosis of lumbar region Sternal pain Strain of right biceps Surgical History History of back surgery History of repair of rotator cuff S/P coronary artery stent placement Status post angioplasty with stent Family History Grandmother Breast cancer Uncle Colorectal cancer Myocardial infarction Brother Colorectal cancer Father Myocardial infarction Denies family history of Ovarian cancer Prostate cancer Diabetes Social History Smoking Status: Current some day smoker Tobacco Type: Cigars Cigarettes Per Day: 1 every day; Second Hand Exposure: No; Hx Alcohol Use: No Hx Substance Use: No Preferred Language: Ugandan Communication Ability: Effective Hearing Ability: Hard of Hearing Spare Hand Carding Required: No Beliefs That Will Affect Care: None marital status: Current Living Situation: Spouse current occupational status: retired How many Children do You have: 2 Feels Safe at Home: Yes Childhood Exposure to Second-Hand Smoke: No caffeine: Yes (TEA) Dental Care, Regularly: No Physical Activity Frequency: 3-4 Times per Week Seatbelt Use: always Sunscreen Use: No Assistive Devices: None Review of Systems A total of 10 systems reviewed and were otherwise negative Constitutional: no fever Respiratory: no cough Cardiovascular: + chest pain Gastrointestinal: no abdominal pain Physical Exam Vital Signs Vital Signs - 24 hr 11/15/22 19:34 11/15/22 19:51 11/15/22 20:01 Temperature 36.4 C L Temperature Source Temporal Artery Scan Pulse Rate 130 H Pulse Rate [Apical] 136 H 103 H Pulse Rate from SpO2 Sensor Pulse Rhythm [Apical] Irregular Respiratory Rate 20 22 20 Respiratory Effort / Characteristics Non-Labored Spontaneous Non-Labored Spontaneous Respiratory Depth Normal Normal Respiratory Pattern Regular Regular Blood Pressure 109/75 Blood Pressure [Right Arm] 99/77 L 96/60 L Blood Pressure Mean 86 Blood Pressure Mean [Right Arm] 84 72 Blood Pressure Position [Right Arm] Semi-fowlers Semi-fowlers Pulse Oximetry 98 97 97 Oxygen Delivery Method Room Air Room Air Room Air Sepsis Recent Fever Within 48 Hours No Sepsis New/Unexplained Change in Mental Status No Sepsis Action Taken by Nursing No Action Required 11/15/22 19:49 11/15/22 19:51 11/15/22 20:01 Temperature Temperature Source Pulse Rate 123 H 134 H 102 H Pulse Rate [Apical] Pulse Rate from SpO2 Sensor 133 H 103 H Pulse Rhythm [Apical] Respiratory Rate 17 22 22 Respiratory Effort / Characteristics Respiratory Depth Respiratory Pattern Blood Pressure 99/77 L 96/60 L Blood Pressure [Right Arm] Blood Pressure Mean 84 72 Blood Pressure Mean [Right Arm] Blood Pressure Position [Right Arm] Pulse Oximetry 99 97 Oxygen Delivery Method Sepsis Recent Fever Within 48 Hours Sepsis New/Unexplained Change in Mental Status Sepsis Action Taken by Nursing 11/15/22 20:03 11/15/22 20:15 11/15/22 20:30 Temperature Temperature Source Pulse Rate 95 H 106 H 99 H Pulse Rate [Apical] Pulse Rate from SpO2 Sensor 98 H 100 H 98 H Pulse Rhythm [Apical] Respiratory Rate 23 14 14 Respiratory Effort / Characteristics Respiratory Depth Respiratory Pattern Blood Pressure 98/62 L 90/59 L 89/59 L Blood Pressure [Right Arm] Blood Pressure Mean 74 69 69 Blood Pressure Mean [Right Arm] Blood Pressure Position [Right Arm] Pulse Oximetry 98 97 94 Oxygen Delivery Method Sepsis Recent Fever Within 48 Hours Sepsis New/Unexplained Change in Mental Status Sepsis Action Taken by Nursing 11/15/22 20:45 11/15/22 21:00 Temperature Temperature Source Pulse Rate 102 H 108 H Pulse Rate [Apical] Pulse Rate from SpO2 Sensor 86 105 H Pulse Rhythm [Apical] Respiratory Rate 24 20 Respiratory Effort / Characteristics Respiratory Depth Respiratory Pattern Blood Pressure 96/63 L Blood Pressure [Right Arm] Blood Pressure Mean 74 Blood Pressure Mean [Right Arm] Blood Pressure Position [Right Arm] Pulse Oximetry 95 96 Oxygen Delivery Method Sepsis Recent Fever Within 48 Hours Sepsis New/Unexplained Change in Mental Status Sepsis Action Taken by Nursing GENERAL: Patient is awake alert in no acute distress patient is resting comfortably and showing no signs of anxiety EYES: The conjunctivae are clear. The pupils are round and reactive. EARS, NOSE, MOUTH AND THROAT: The nose is without any evidence of any deformity. Mucous membranes are moist. Tongue is midline. NECK: The neck is nontender and supple. RESPIRATORY: Normal respiratory effort is noted there is no evidence of wheezing rhonchi or rales CARDIOVASCULAR: Irregularly irregular and tachycardic. GASTROINTESTINAL: The abdomen is soft. Abdomen is nontender. BACK: No midline tenderness or or step-off noted range of motion in flexion extension as well as rotation no signs of muscle spasm noted MUSCULOSKELETAL/EXTREMITIES: There is no evidence of gross deformity full range of motion is noted in the hips and shoulders. SKIN: There is no obvious evidence of any rash. There are no petechiae, pallor or cyanosis noted. NEUROLOGIC: Patient is awake alert and oriented x3 strength is symmetric PSYCH: Normal affect Course Reevaluation(s) Reevaluation #1: Patient was initially started on IV Cardizem 1 dose 20 mg which decreased his heart rate and he had rate controlled atrial fibrillation. Patient will be admitted for chest pain and hyperglycemia. Patient was given regular insulin subcu. Patient has taken Eliquis prior to arrival Time: 21:36 Consultations Consultation #1: Case discussed with the [facility] Hospitalist for admission Time: 21:36 Administered Medications Discontinued Medications Diltiazem HCl (Diltiazem Hcl 5 Mg/Ml 5 Ml Vial) 20 mg IV NOW STA Stop: 11/15/22 19:47 Last Admin: 11/15/22 19:55 Dose: 20 mg Documented By: JT Co-signed By: RENE Critical Care Time Critical Care Time: Yes Total Critical Care Time: 35 I have personally spent greater than 35 minutes of critical care time in the direct management of this patient. This includes bedside care, interpretation of diagnostic studies, and testing, discussion with consultants, patient, and family members, and other required patient management activities. These minutes are in excess of all separately billable procedures. Medical Decision Making Medical Records Attestation: I reviewed the patient's medical records. Home Medications Current Medication List: was personally reviewed by me Laboratory Data Attestation: I reviewed the patient's lab results. Labs patient has an elevated white blood cell count and elevated blood sugar 11/15/22 19:50 11/15/22 19:50 Lab Results 11/15/22 11/15/22 11/15/22 Range/Units 19:50 19:50 19:50 WBC 13.54 H (4.8-10.8) K/ul RBC 4.52 L (4.70-6.10) M/uL Hgb 14.8 (14.0-18.0) g/dl Hct 43.1 (42.0-52.0) % MCV 95.4 (80.0-100.0) fL MCH 32.7 (25.0-34.0) pg MCHC 34.3 (32.0-36.0) g/dL RDW Std Deviation 46.1 (36.4-46.3) fL RDW Coeff of Reny 13.2 (11.5-14.5) % Plt Count 285 (130-400) K/uL MPV 10.3 (9.4-12.4) fL Immature Gran % (Auto) 0.7 % Neut % (Auto) 90.0 % Lymph % (Auto) 4.1 % Emanuel % (Auto) 5.1 % Eos % (Auto) 0.0 % Baso % (Auto) 0.1 % Neut # (Auto) 12.19 H (1.40-6.50) K/uL Lymph # (Auto) 0.55 L (1.2-3.4) K/uL Emanuel # (Auto) 0.69 H (0.11-0.59) K/uL Eos # (Auto) 0.00 (0-0.50) K/uL Baso # (Auto) 0.01 (0-0.2) K/uL Immature Gran # (Auto) 0.10 (0.01-0.20) K/uL PT 10.9 (9.0-12.0) Seconds INR 1.0 (0.9-1.1) APTT 25.9 (21.0-31.0) Seconds PTT Ratio 0.9 Sodium 131 L (136-145) mmol/L Potassium 5.0 (3.5-5.1) mmol/L Chloride 96 L (98-107) mmol/L Carbon Dioxide 23 (21-32) mmol/L Anion Gap 12 H (3-11) BUN 24 H (6-23) mg/dl Creatinine 1.19 (0.6-1.4) mg/dl Est Cr Clr Drug Dosing 57.5 ml/min Est GFR ( Amer) 72.3 ml/min Est GFR (Non-Af Amer) 62.4 ml/min BUN/Creatinine Ratio 20.2 H (10-20) Glucose 714 H* (70-99(Fasting)) mg/dl Calcium 9.7 (8.5-10.1) mg/dl Total Bilirubin 0.7 (0.2-1.0) mg/dl AST 19 (13-39) U/L ALT 33 (7-52) U/L Alkaline Phosphatase 94 (34-104) U/L Troponin I High Sens 7.3 (0-20) pg/ml Total Protein 6.7 (6.0-8.3) gm/dl Albumin 4.2 (3.4-5.0) gm/dl Globulin 2.5 (2.5-4.0) gm/dl Albumin/Globulin Ratio 1.7 (0.9-2) Imaging Data Attestation: I personally reviewed and interpreted this imaging study as follows: My Impression: CXR interpreted by me - negative Radiologist's Impression: Chest X-Ray 11/15/22 19:37 XR chest 1V portable HISTORY: Chest pain, nonspecific COMPARISON: Chest 10/08/2021. FINDINGS: No pneumothorax. No pleural effusions. No focal lung consolidations to suggest pneumonia. No evidence for pulmonary edema. The heart is normal in size. No acute rib fractures identified. There are low lung volumes. IMPRESSION: No acute process. ACT 112: Negative or not required by law. Electronically signed by: Chadwick Granados M.D. 11/15/2022 8:47 PM ECG Data Attestation: I personally reviewed and interpreted this ECG as follows: MDM Narrative Medical decision making differential diagnosis angina, unstable angina acute AR acute coronary syndrome rapid atrial fibrillation metabolic derangement Plan is to check labs, EKG, chest x-ray, treat rapid A-fib External medical records were reviewed by me Nursing notes were reviewed by me Patient's heart score is moderate Patient is at risk for cardiopulmonary event Patient's history with complaint of chest pain rapid A-fib requires admission Case discussed with the [facility] Hospitalist for admission Impression & Plan Atrial fibrillation with rapid ventricular response, Chest pain, Hyperglycemia Discharge Plan Visit Data Chief Complaint: Chest Pain Stated Complaint: CHEST PAIN, LEFT ARM PAIN,HEADACHE ED Provider: Baljit Ayala Discharge Problem: Atrial fibrillation with rapid ventricular response, Chest pain, Hyperglycemia Patient Disposition: Admitted As Inpatient Forms Stand Alone Forms: My [facility] Prescriptions Prescriptions: No Action aspirin [Adult Aspirin Regimen] 81 mg tablet,delayed release (DR/EC) 81 mg PO DAILY cholecalciferol (vitamin D3) 2,000 unit capsule 2,000 units PO DAILY coenzyme Q10 100 mg capsule 100 mg PO BID (DME) pen needle, diabetic [BD Ultra-Fine Mini Pen Needle] 31 gauge x 3/16" needle See Rx Instructions .Route Qty: 100 5RF Rx Instructions: As directed atorvastatin [Lipitor] 80 mg tablet 80 mg PO DAILY Qty: 90 3RF metformin 1,000 mg tablet 1,000 mg PO BID Qty: 180 1RF Trulicity 3 mg/0.5 mL pen injector 3 mg subcut .COMPLEX Qty: 2 5RF Rx Instructions: 3 mg subcutaneously once weekly, takes on Saturday metoprolol succinate 100 mg tablet extended release 24 hr 100 mg PO .COMPLEX Qty: 270 3RF Rx Instructions: 100 mg orally - Take 2 Tablets in the AM and 1 tablet in the PM.; Eliquis 5 mg tablet 5 mg PO BID Qty: 180 3RF methylprednisolone 2 mg tablet 2 mg PO DAILY Qty: 90 1RF Basaglar KwikPen U-100 Insulin 100 unit/mL (3 mL) insulin pen 45 unit SQ HS Qty: 45 3RF prednisone 10 mg tablets,dose pack 10 mg PO UD Qty: 1 0RF Rx Instructions: 12 day pack Use as directed nitroglycerin 0.4 mg tablet, sublingual 0.4 mg sublingual Q5M PRN (Reason: chest pain) Referrals Referrals: Chiara De Jesus MD [Primary Care Provider] -
[2022-11-15 20:08] LABS: Basophils # (auto) 0.01 K/uL (0-0.2); Basophils % (auto) 0.1 %; Hematocrit (blood only) 43.1 % (42.0-52.0); Hemoglobin 14.8 g/dl (14.0-18.0); Immature Granulocytes % (auto) 0.7 %; Lymphocytes # (auto) 0.55 K/uL (1.2-3.4); Lymphocytes % (auto) 4.1 %; Mean Corpuscular Hemoglobin 32.7 pg (25.0-34.0); Mean Corpuscular Hgb Conc 34.3 g/dL (32.0-36.0); Mean Corpuscular Volume 95.4 fL (80.0-100.0); Mean Platelet Volume 10.3 fL (9.4-12.4); Monocytes # (auto) 0.69 K/uL (0.11-0.59); Monocytes % (auto) 5.1 %; Neutrophils # (auto) 12.19 K/uL (1.40-6.50); Platelet Count 285 K/uL (130-400); RDW Coefficient of Variation 13.2 % (11.5-14.5); RDW Standard Deviation 46.1 fL (36.4-46.3); Red Blood Count 4.52 M/uL (4.70-6.10); White Blood Count 13.54 K/ul (4.8-10.8)
--- NOTE | 2022-11-15 20:49 | XRay Report ---
XR chest 1V portable HISTORY: Chest pain, nonspecific COMPARISON: Chest 10/08/2021. FINDINGS: No pneumothorax. No pleural effusions. No focal lung consolidations to suggest pneumonia. N o evidence for pulmonary edema. The heart is normal in size. No acute rib fractures identified. There are low lung volumes. IMPRESSION: No acute process. ACT 112: Negative or not required by law. Electronically signed by: Chadwick Granados M.D. 11/15/2022 8:47 PM
[2022-11-15 21:03] LABS: Partial Thromboplastin Ratio 0.9; Partial Thromboplastin Time 25.9 Seconds (21.0-31.0); Prothrombin Time 10.9 Seconds (9.0-12.0)
[2022-11-15 21:27] LABS: Albumin Globulin Ratio 1.7 (0.9-2); Albumin Level 4.2 gm/dl (3.4-5.0); BUN Creatinine Ratio 20.2 (10-20); Bilirubin,Total 0.7 mg/dl (0.2-1.0); Calcium 9.7 mg/dl (8.5-10.1); Creatinine Clr Calc Pharmacy 57.5 ml/min; Est GFR (African American) 72.3 ml/min; Est GFR (Non-African American) 62.4 ml/min; Globulin 2.5 gm/dl (2.5-4.0); Total Protein 6.7 gm/dl (6.0-8.3); Troponin I High Sensitivity 7.3 pg/ml (0-20)
[2022-11-15] MEDS ORDERED: INSULIN HUMAN REGULAR SC STA (21:28)
[2022-11-15] MEDS ORDERED: NovoLIN-R INSULIN PER UNIT CHARGE SC STA (21:33)
--- NOTE | 2022-11-15 22:56 | History & Physical Report ---
Date of Service November 15, 2022 Assessment & Plan (1) Chest pain: Plan: 66yo male with history of CAD with prior stent placement presenting with chest pain. Patient reports doing strenuous exercise the day prior - had some sharp chest pain yesterday. Episode of pain this evening that he reports feeling like prior cardiac pain. Presently is chest pain free. His troponin x 1 is normal at 7.3. Repeat is pending EKG with AF at 138bpm. Cardizem 20mg IV x 2 doses given. HR improved. BP is low in room but improves upon repositioning of cuff. Patient does report that he gets chest pain with his atrial fibrillation. ?musculoskeletal given reproducibility - negative workup thus far. ?rate related chest pain? -Admit to medical with telemetry -Trend troponin x 3 sets -Continue ASA -Nitro as needed -Continue Atorvastatin -Continue Metoprolol - monitor BP (2) Hyperglycemia: Plan: Elevated blood sugar upon arrival at 714. Patient was administered 16u of SQ insulin in the ER with improvement to 307. Most likely secondary to Prednisone - patient was recently started on 60mg Prednisone taper for right shoulder pain. Patient with history of DM. Last [id number]=6.8 on 07/19/22. Patient is on Metformin, Dulaglutide and Insulin 45u daily -Pharmacy consultation appreciated -Goal blood sugar 110-140 (3) Atrial fibrillation with rapid ventricular response: Plan: Rate controlled now. Patient is on anticoagulation with Apixaban -Continue Metoprolol -Continue Apixaban (4) Hypertension: Plan: Patient with borderline low blood pressures at present -Gentle IVF x 1 L -Monitor BP -Continue Metoprolol (5) PMR (polymyalgia rheumatica): Plan: Patient is on daily Methylprednisolone 2mg. Recently started on Prednisone 60mg taper -Hold Solumedrol for now -Complete Prednisone taper -Resume home Solumedrol after completion of the Prednisone taper (6) Hypercholesterolemia: Plan: Chronic. Stable -Continue Atorvastatin F/E/N - LR at 125mL/hr x 1 liter, electrolytes WNL, CC/AHA diet as tolerated Ppx - Continue apixaban Code - Full Dispo - Admit to medical tele History of Present Illness Chief Complaint: chest pain Primary Care Provider: Chiara De Jesus MD Juan Ayers is a 66yo male with longstanding history of CAD with multiple stents in place, Paroxysmal atrial fibrillation on Eliquis anticoagulation presenting with chest tightness. Patient had a brief episode of chest discomfort last night which resolved after several moments. Tonight he was sitting in his recliner chair around 19:00 when he had a sudden onset of left sided chest and arm pain. He had some associated dizziness and lightheadedness as well. He reports that the pain felt like his prior [place] Of note, patient was moving lumber yesterday. His chest pain is somewhat reproducible on exam. He was seen by Cardiology earlier today in clinic but was not having any chest symptoms at that time In the ER he is afebrile, AF with elevated rate of 136 - given Cardizem 20mg IV x 2 doses with improvement in HR Found to be hyperglycemic with BSG of 714 Recently started on a steroid taper x 14 days by Orthopedics for left shoulder pain Presently without chest pain No additional complaints at this time. Patient with no additional complaints. Denies REARDON, visual changes, cough, SOB, abdominal pain, nausea, vomiting, diarrhea or constipation ER Course: Diltiazem 20mg IV x 2 doses Insulin 16u SQ Allergies Allergy/AdvReac Type Severity Reaction Status Date / Time prasugrel Allergy Severe RASH Verified 11/15/22 10:47 clopidogrel Allergy Unknown rash Verified 11/15/22 10:47 nitroglycerin AdvReac Unknown HEADACHE Verified 11/15/22 10:47 oxycodone AdvReac Unknown UPSET Verified 11/15/22 10:47 STOMACH Home Medications Medication Instructions Recorded Confirmed Type aspirin 81 mg tablet,delayed 81 mg PO DAILY 06/24/18 11/15/22 History release (Adult Aspirin Regimen) cholecalciferol (vitamin D3) 50 2,000 units PO DAILY 06/24/18 11/15/22 History mcg (2,000 unit) capsule coenzyme Q10 100 mg capsule 100 mg PO BID 03/08/19 11/15/22 History nitroglycerin 0.4 mg sublingual 0.4 mg sublingual Q5M PRN chest 11/02/19 11/15/22 History tablet pain pen needle, diabetic 31 gauge x #100 ea 10/04/21 11/15/22 Rx 3/16" (BD Ultra-Fine Mini Pen Needle) insulin glargine 100 unit/mL (3 45 unit (0.45 mL) subcut HS #45 mL 02/08/22 02/09/23 Rx mL) subcutaneous pen (Basaglar KwikPen U-100 Insulin) atorvastatin 80 mg tablet (Lipitor) 80 mg PO DAILY #90 tabs 02/08/22 11/15/22 Rx metformin 1,000 mg tablet 1,000 mg PO BID #180 tabs 06/25/22 11/15/22 Rx dulaglutide 3 mg/0.5 mL 3 mg (0.5 mL) subcut .COMPLEX #2 mL 07/20/22 11/15/22 Rx subcutaneous pen injector (Trulicity) metoprolol succinate 100 mg 100 mg PO .COMPLEX #270 tabs 08/15/22 11/15/22 Rx tablet,extended release 24 hr apixaban 5 mg tablet (Eliquis) 5 mg PO BID #180 tabs 08/27/22 11/15/22 Rx methylprednisolone 2 mg tablet 2 mg PO DAILY #90 tabs 09/25/22 11/15/22 Rx prednisone 10 mg tablets in a dose 10 mg PO UD #1 packet 11/13/22 11/15/22 Rx pack Past Med/Surg History Medical History Antiplatelet or antithrombotic long-term use Asthma Barretts esophagus Edwards's palsy CAD (coronary artery disease) CAD (coronary artery disease), [place] coronary artery Cardiomyopathy Cataract Chest pain Chronic anticoagulation Chronic back pain Congestion of nasal sinus Coronary stent patent Cough Diabetes Dyslipidemia Fibromyalgia Fibromyalgia GERD without esophagitis Heart disease History of Lyme disease HTN (hypertension) Hyperlipidemia Hypertension IDDM (insulin dependent diabetes mellitus) Left rotator cuff tear Lumbar facet joint syndrome Lumbar postlaminectomy syndrome Lumbar radiculopathy Myofascial pain Neck pain Paroxysmal atrial fibrillation PMR (polymyalgia rheumatica) Right shoulder pain Sore throat Spinal stenosis of lumbar region Sternal pain Strain of right biceps Surgical History History of back surgery History of repair of rotator cuff S/P coronary artery stent placement Status post angioplasty with stent Family History Grandmother Breast cancer Uncle Colorectal cancer Myocardial infarction Brother Colorectal cancer Father Myocardial infarction Denies family history of Ovarian cancer Prostate cancer Diabetes Social History Smoking Status: Current some day smoker Tobacco Type: Cigars Cigarettes Per Day: 1 every day; Second Hand Exposure: No; Hx Alcohol Use: No Hx Substance Use: No Preferred Language: Yakut Communication Ability: Effective Hearing Ability: Hard of Hearing Crew Clerk Required: No Beliefs That Will Affect Care: None marital status: Current Living Situation: Spouse current occupational status: retired How many Children do You have: 2 Feels Safe at Home: Yes Childhood Exposure to Second-Hand Smoke: No caffeine: Yes (TEA) Dental Care, Regularly: No Physical Activity Frequency: 3-4 Times per Week Seatbelt Use: always Sunscreen Use: No Assistive Devices: None Review of Systems Review of Systems: All systems reviewed & are unremarkable except as noted in HPI & below Physical Exam Physical Exam: General: patient resting comfortably, NAD, non-toxic in appearance, AA&O x 4 Skin: warm, dry, intact, no rashes or lesions HEENT: NC/AT, PERRL, EOMI, anicteric sclera, conjunctiva without injection, external ear normal to inspection and nontender, nares patent, moist mucus membranes, dentition intact, no oropharyngeal lesions, neck supple, trachea midline, no LAD, no thyromegaly, no JVD Heart: +S1/S2, irregularly irregular, no m/r/g, chest wall pain with palpation Lungs: equal air entry bilaterally, no rales/rhonchi/wheezes Abd: +BS, soft, NT/ND, no masses/organomegaly/ascites Ext: warm, 2+ pulses in UE/LE bilaterally, no clubbing/cyanosis or edema Neuro: nonfocal, patient AA&O x 4, speech intact, no facial droop, moving all extremities on command with equal strength 5/5 Results & Data Results & Data ([facility]) Vital Signs (Past 12 Hours) Vital Signs Temp Pulse Pulse Resp BP BP Pulse Ox 11/15/22 22:12 81 16 84/61 L 94 11/15/22 22:00 96 H 24 92/57 L 95 11/15/22 21:51 120 H 23 97/66 L 95 11/15/22 21:45 113 H 22 94 11/15/22 21:30 115 H 20 125/95 96 11/15/22 21:15 102 H 24 97 11/15/22 21:00 108 H 20 96/63 L 96 11/15/22 20:45 102 H 24 95 11/15/22 20:30 99 H 14 89/59 L 94 11/15/22 20:15 106 H 14 90/59 L 97 11/15/22 20:03 95 H 23 98/62 L 98 11/15/22 20:01 102 H 22 96/60 L 97 11/15/22 19:51 134 H 22 99/77 L 99 11/15/22 19:49 123 H 17 11/15/22 20:01 103 H 20 96/60 L 97 11/15/22 19:51 136 H 22 99/77 L 97 11/15/22 19:34 36.4 C L 130 H 20 109/75 98 O2 Del Method 11/15/22 22:12 11/15/22 22:00 11/15/22 21:51 11/15/22 21:45 11/15/22 21:30 11/15/22 21:15 11/15/22 21:00 11/15/22 20:45 11/15/22 20:30 11/15/22 20:15 11/15/22 20:03 11/15/22 20:01 11/15/22 19:51 11/15/22 19:49 11/15/22 20:01 Room Air 11/15/22 19:51 Room Air 11/15/22 19:34 Room Air Laboratory Results Laboratory Results WBC 13.54 K/ul (4.8-10.8) H 11/15/22 19:50 RBC 4.52 M/uL (4.70-6.10) L 11/15/22 19:50 Hgb 14.8 g/dl (14.0-18.0) 11/15/22 19:50 Hct 43.1 % (42.0-52.0) 11/15/22 19:50 MCV 95.4 fL (80.0-100.0) 11/15/22 19:50 MCH 32.7 pg (25.0-34.0) 11/15/22 19:50 MCHC 34.3 g/dL (32.0-36.0) 11/15/22 19:50 RDW Std Deviation 46.1 fL (36.4-46.3) 11/15/22 19:50 RDW Coeff of Reny 13.2 % (11.5-14.5) 11/15/22 19:50 Plt Count 285 K/uL (130-400) 11/15/22 19:50 MPV 10.3 fL (9.4-12.4) 11/15/22 19:50 Immature Gran % (Auto) 0.7 % 11/15/22 19:50 Neut % (Auto) 90.0 % 11/15/22 19:50 Lymph % (Auto) 4.1 % 11/15/22 19:50 [place] % (Auto) 5.1 % 11/15/22 19:50 Eos % (Auto) 0.0 % 11/15/22 19:50 Baso % (Auto) 0.1 % 11/15/22 19:50 Neut # (Auto) 12.19 K/uL (1.40-6.50) H 11/15/22 19:50 Lymph # (Auto) 0.55 K/uL (1.2-3.4) L 11/15/22 19:50 [place] # (Auto) 0.69 K/uL (0.11-0.59) H 11/15/22 19:50 Eos # (Auto) 0.00 K/uL (0-0.50) 11/15/22 19:50 Baso # (Auto) 0.01 K/uL (0-0.2) 11/15/22 19:50 Immature Gran # (Auto) 0.10 K/uL (0.01-0.20) 11/15/22 19:50 PT 10.9 Seconds (9.0-12.0) 11/15/22 19:50 INR 1.0 (0.9-1.1) 11/15/22 19:50 APTT 25.9 Seconds (21.0-31.0) 11/15/22 19:50 PTT Ratio 0.9 11/15/22 19:50 Sodium 131 mmol/L (136-145) L 11/15/22 19:50 Potassium 5.0 mmol/L (3.5-5.1) 11/15/22 19:50 Chloride 96 mmol/L (98-107) L 11/15/22 19:50 Carbon Dioxide 23 mmol/L (21-32) 11/15/22 19:50 Anion Gap 12 (3-11) H 11/15/22 19:50 BUN 24 mg/dl (6-23) H 11/15/22 19:50 Creatinine 1.19 mg/dl (0.6-1.4) 11/15/22 19:50 Est Cr Clr Drug Dosing 57.5 ml/min 11/15/22 19:50 Est GFR ( Amer) 72.3 ml/min 11/15/22 19:50 Est GFR (Non-Af Amer) 62.4 ml/min 11/15/22 19:50 BUN/Creatinine Ratio 20.2 (10-20) H 11/15/22 19:50 Glucose 714 mg/dl (70-99(Fasting)) H* 11/15/22 19:50 POC Glucose 307 mg/dl (70-99) H* 11/16/22 00:29 Calcium 9.7 mg/dl (8.5-10.1) 11/15/22 19:50 Total Bilirubin 0.7 mg/dl (0.2-1.0) 11/15/22 19:50 AST 19 U/L (13-39) 11/15/22 19:50 ALT 33 U/L (7-52) 11/15/22 19:50 Alkaline Phosphatase 94 U/L (34-104) 11/15/22 19:50 Troponin I High Sens 7.3 pg/ml (0-20) 11/15/22 19:50 Total Protein 6.7 gm/dl (6.0-8.3) 11/15/22 19:50 Albumin 4.2 gm/dl (3.4-5.0) 11/15/22 19:50 Globulin 2.5 gm/dl (2.5-4.0) 11/15/22 19:50 Albumin/Globulin Ratio 1.7 (0.9-2) 11/15/22 19:50 SARS-CoV-2, RNA, NAAT NEGATIVE (NEGATIVE) 11/15/22 21:20 Impressions Chest X-Ray 11/15/22 19:37 XR chest 1V portable HISTORY: Chest pain, nonspecific COMPARISON: Chest 10/08/2021. FINDINGS: No pneumothorax. No pleural effusions. No focal lung consolidations to suggest pneumonia. No evidence for pulmonary edema. The heart is normal in size. No acute rib fractures identified. There are low lung volumes. IMPRESSION: No acute process. ACT 112: Negative or not required by law. Electronically signed by: Chadwick Granados M.D. 11/15/2022 8:47 PM Code Status & VTE Plan VTE Prophylaxis Plan VTE Prophylaxis will be ordered: Yes PG Care Time/CCT Total # of Minutes Spent Total Time Spent with Patient: Total time spent is greater than 50% in coordination of care (as documented) at patient's floor/unit and/or counseling patient: Coding Level of Care Code 26028 INT INP/OBS CARE 3/75MIN Diagnoses Chest pain R07.9 Hyperglycemia R73.9 Atrial fibrillation with rapid ventricular response I48.91 Hypertension I10 PMR (polymyalgia rheumatica) M35.3 Hypercholesterolemia E78.00
[2022-11-16] MEDS ORDERED: CARBOHYDRATES FOR HYPOGLYCEMIA PO PRN (00:46)
[2022-11-16] MEDS ORDERED: DEXTROSE 50% 50 ML SYRINGE IV PRN (00:46)
[2022-11-16] MEDS ORDERED: NITROGLYCERIN SL 0.4 MG/TAB TAB SL PRN (00:46)
[2022-11-16] MEDS ORDERED: DOCUSATE SODIUM 100 MG CAP PO PRN (00:46)
[2022-11-16] MEDS ORDERED: GLUCOSE 40% GEL 15 GM TUBE PO PRN (00:46)
[2022-11-16] MEDS ORDERED: PHARMACY GLYCEMIC MGMT CONSULT PRN (00:46)
[2022-11-16] MEDS ORDERED: GLUCAGON FOR INJ 1 MG VIAL SQ PRN (00:46)
[2022-11-16] MEDS ORDERED: ACETAMINOPHEN 325 MG TAB PO PRN (00:46)
[2022-11-16] MEDS ORDERED: ONDANSETRON INJ 2 MG/ML 2 ML VIAL IV PRN (00:46)
[2022-11-16] MEDS ORDERED: GLUCOSE 10 TAB/TUBE PO PRN (00:46)
[2022-11-16] MEDS ORDERED: SODIUM CHLORIDE 0.9% 1000ML 1,000 ML IV SCH (01:30)
[2022-11-16] MEDS ORDERED: LANTUS PER UNIT CHARGE SQ SCH ×2 (01:30→21:00)
[2022-11-16] MEDS: INSULIN ASPART PER UNIT SC SCH ×3 (01:33→12:16)
[2022-11-16 02:17] LABS: Magnesium 2.1 mg/dl (1.7-2.4)
[2022-11-16 02:22] LABS: Phosphorus 3.7 mg/dl (2.5-4.9)
[2022-11-16 03:22] LABS: Troponin I High Sensitivity 108.6 pg/ml (0-20)
[2022-11-16 04:21] LABS: Basophils # (auto) 0.01 K/uL (0-0.2); Basophils % (auto) 0.1 %; Eosinophils # (auto) 0.01 K/uL (0-0.50); Eosinophils % (auto) 0.1 %; Hematocrit (blood only) 40.7 % (42.0-52.0); Immature Granulocytes # (auto) 0.07 K/uL (0.01-0.20); Immature Granulocytes % (auto) 0.6 %; Lymphocytes # (auto) 1.51 K/uL (1.2-3.4); Lymphocytes % (auto) 12.3 %; Mean Corpuscular Hgb Conc 34.4 g/dL (32.0-36.0); Mean Corpuscular Volume 92.9 fL (80.0-100.0); Monocytes # (auto) 0.78 K/uL (0.11-0.59); Monocytes % (auto) 6.3 %; Neutrophils # (auto) 9.92 K/uL (1.40-6.50); Neutrophils % (auto) 80.6 %; Platelet Count 281 K/uL (130-400); RDW Coefficient of Variation 13.4 % (11.5-14.5); RDW Standard Deviation 45.5 fL (36.4-46.3); Red Blood Count 4.38 M/uL (4.70-6.10)
[2022-11-16] MEDS ORDERED: INSULIN ASPART PER UNIT SC SCH (04:30)
[2022-11-16 04:35] LABS: INR 1.1 (0.9-1.1); Partial Thromboplastin Ratio 0.9; Partial Thromboplastin Time 24.8 Seconds (21.0-31.0); Prothrombin Time 11.2 Seconds (9.0-12.0)
[2022-11-16 04:36] LABS: Albumin Level 3.6 gm/dl (3.4-5.0); Bilirubin Direct 0.1 mg/dl (0-0.2); Bilirubin,Total 0.6 mg/dl (0.2-1.0); Calcium 9.7 mg/dl (8.5-10.1); Potassium 3.8 mmol/L (3.5-5.1)
[2022-11-16 04:42] LABS: BUN Creatinine Ratio 25.2 (10-20); Creatinine Clr Calc Pharmacy 66.4 ml/min; Est GFR (African American) 86.1 ml/min; Est GFR (Non-African American) 74.3 ml/min; Total Protein 5.9 gm/dl (6.0-8.3)
[2022-11-16] MEDS ORDERED: METOPROLOL SUCC 50MG EXT REL TAB PO SCH ×3 (06:15→21:00)
[2022-11-16] MEDS ORDERED: dilTIAZem HCl 5 MG/ML 5 ML VIAL IV STA (06:33)
[2022-11-16] MEDS ORDERED: carvediloL 3.125 MG TAB PO ONE (06:49)
[2022-11-16] MEDS ORDERED: STAT IV Infusion **Titration per Protocol STA (08:27)
[2022-11-16] MEDS ORDERED: dilTIAZem HCL 125 MG in DEXTROSE 5% 100 ML IV SCH (08:30)
--- NOTE | 2022-11-16 08:43 | Electrocardiogram Report ---
Test Reason : Blood Pressure : / mmHG Vent. Rate : 138 BPM Atrial Rate : 131 BPM P-R Int : 000 ms QRS Dur : 092 ms QT Int : 298 ms P-R-T Axes : 000 030 116 degrees QTc Int : 451 ms Atrial fibrillation with rapid ventricular response Nonspecific T wave abnormality Abnormal ECG When compared with ECG of 08-OCT-2021 03:33, Atrial fibrillation has replaced Sinus rhythm Vent. rate has increased BY 58 BPM Confirmed by Satnam Houston ([id number]) on 11/16/2022 8:42:48 AM Referred By: REFERRED SELF Confirmed By:Satnam Houston
[2022-11-16] MEDS ORDERED: INSULIN HUMAN NPH SC SCH (09:00)
[2022-11-16] MEDS ORDERED: ASPIRIN 81 MG ECTAB PO SCH (09:00)
[2022-11-16] MEDS ORDERED: methylPREDNISolone 4 MG TAB PO SCH (09:00)
[2022-11-16] MEDS ORDERED: ATORVASTATIN 40 MG TAB PO SCH (09:00)
[2022-11-16] MEDS ORDERED: predniSONE 20 MG TAB PO SCH (09:00)
[2022-11-16] MEDS ORDERED: APIXABAN 5 MG TABLET PO SCH (09:00)
--- NOTE | 2022-11-16 12:19 | Hospitalist Progress Note ---
Date of Service November 16, 2022 Assessment & Plan (1) Chest pain: Plan: 66yo male with history of CAD with prior stent placement presenting with chest pain. Patient reports doing strenuous exercise the day prior - had some sharp chest pain that radiated down his left shoulder. [place] like his previous heart attack Patient also found to be in afib wrvr, initial trop was normal, but has been trending up He received Cardizem, bolus and infusion. His EKG now shows normal sinus rhythm His chest pain has resolved Will continue his Apixaban, Nitro, statin, Metoprolol, ASA and continue to trend trop Cardiology on consult (2) Elevated troponin: Plan: Most likely due to demand ischemia from rapid ventricular rate No ST changes on EKG will trend trops (3) Hyperglycemia: Plan: Poorly controlled Type 2 DM, Last OljB1H=2.8 on 07/19/22 Elevated blood sugar upon arrival at 714. Probably worsened by recent steroid injection for shoulder pain He was given insulin and strted on sliding scale Patient is on Metformin, Dulaglutide and Insulin 45u daily at home (4) Atrial fibrillation with rapid ventricular response: Plan: Paroxysmal Afib. Now in sinus Patient is on anticoagulation with Apixaban Continue Metoprolol Continue Apixaban (5) Hypertension: Plan: BP under good control (6) PMR (polymyalgia rheumatica): Plan: Patient is on daily Methylprednisolone 2mg. Recently started on Prednisone 60mg taper -Hold Solumedrol for now -Complete Prednisone taper -Resume home Solumedrol after completion of the Prednisone taper (7) Hypercholesterolemia: Plan: -Continue Atorvastatin Plan Ppx - Continue apixaban Code - Full Admission and Anticipated Discharge Date Admission Date: November 15, 2022 Subjective patient seen and examined, said the chest pain has resolved Review of Systems Review of Systems: All systems reviewed are negative, apart from the ones contained in the history. Physical Exam Physical Exam: The patient is awake, alert and oriented 3, well developed and well nourished, normocephalic and atraumatic, lying in bed and in no acute distress. HEENT--PERRL, EOMI, mucous membranes and oropharynx mildly dry Neck--supple. No JVD. No bruits. Thyroid normal, trachea midline, no adenopathy. Heart--normal S1 and S2. No murmurs, rubs or gallops. Lungs--clear bilaterally, no respiratory distress, no accessory muscle use. Abdomen--normal bowel sounds and soft. Mild epigastric and left sided abdominal pain Extremities--no cyanosis or clubbing. No edema. Dermatologic--normal skin turgor, normal color, no abnormal lymph nodes, no rash. Neurologic--cranial nerves II through XII grossly intact. Rheumatologic--normal range of motion. Psychiatric--normal affect. Results & Data Results & Data ([facility]) Vital Signs (Past 12 Hours) Vital Signs Temp Pulse Pulse Resp BP Pulse Ox O2 Del Method 11/16/22 11:26 97.7 F 70 18 120/74 99 Room Air 11/16/22 08:20 140 H 101/66 11/16/22 08:18 99.1 F 155 H 14 90/68 L 95 Room Air 11/16/22 08:06 97.5 F L 140 H 18 109/65 94 Room Air 11/16/22 07:25 132 H 11/16/22 06:13 136 H 18 100/62 94 Room Air 11/16/22 04:03 97.7 F 16 110/62 92 Room Air PG Care Time/CCT Total # of Minutes Spent Total Time Spent with Patient: Total time spent is greater than 50% in coordination of care (as documented) at patient's floor/unit and/or counseling patient: Coding Level of Care Code 28293 SUB INP/OBS CARE 2/35MIN Diagnoses Chest pain R07.9 Elevated troponin R77.8 Hyperglycemia R73.9 Atrial fibrillation with rapid ventricular response I48.91 Hypertension I10 PMR (polymyalgia rheumatica) M35.3 Hypercholesterolemia E78.00 Time Spent (min) 35
[2022-11-16 14:02] LABS: Estimated Average Glucose 260 mg/dl; Hemoglobin A1C 10.7 % (4.5-5.6)
--- NOTE | 2022-11-16 14:08 | Cardiology Consultation ---
Date of Consultation November 16, 2022 Assessment & Plan (1) Atrial fibrillation with rapid ventricular response: (2) Chest pain: (3) Demand ischemia: (4) CAD (coronary artery disease): Plan 66-year-old man with extensive history of coronary artery disease, who presents with recurrence of atrial fibrillation (last episode 2019). After remote multivessel stenting 2019 cath showed nonocclusive major vessel disease with multiple branch vessels occlusions/collateralization. After receiving intravenous negative chronotropic medications he reverted to sinus rhythm this morning and feels well. Given his known CAD, most likely mild troponin elevation and chest pain were due to demand ischemia secondary to marked tachycardia. Discussed his situation with Dr. Lowery (his primary fish machine feeder who he saw yesterday), reasonable to increase his beta-evan treatment and monitor resp onse. Stress testing would likely be abnormal due to branch vessel disease and in the absence of tachycardia, given his active lifestyle without symptoms recently, he would be unlikely to have lifestyle limiting anginal symptoms. Recommend increasing metoprolol succinate dose from 200 mg q AM/100 q PM to 200 mg twice daily. Since he is not having frequent atrial fibrillation recurrences (this is his first and only recurrence since 2019), would attempt further use of beta-evan rather than switching to amiodarone at this time. If he has further atrial fibrillation in the near term, could then consider amiodarone or other antiarrhythmic. Would ambulate today, if he feels well and has no recurrent atrial fibrillation he could be discharged late afternoon/early evening (as noted, he is anxious to get home to attend to his terminally ill dog). History of Present Illness Reason for Consultation: A-fib with RVR Requesting Physician: Fabián Glaser MD Attending Physician: Fabián Glaser MD History of Present Illness 66-year-old man with extensive history of coronary artery disease (status post multiple stents), paroxysmal atrial fibrillation (last episode 2019, on metoprolol/apixaban), PMR (on chronic steroids) who was admitted 11/15/2022 with chest pain and found to have atrial fibrillation with rapid ventricular response . Patient was actually seen by Dr. Lowery earlier in the day and was doing well. Extensive history of coronary artery disease as documented in Dr. Lowery's note. Briefly, from he received multiple stents in all 3 coronary arteries. Cardiac catheterization 2018 showed nonocclusive major vessel disease with multiple occluded branch vessels with collateralization. At baseline, he is very physically active, able to do outdoor chores and hike significant distances. No routine anginal type symptoms or dyspnea. No heart failure symptoms. No palpitations other than the last few days. No presyncope or syncope. 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 Patient had noted 1 episode of chest discomfort several days ago, then a more severe episode yesterday associated with tachypalpitations. After noting her atrial fibrillation with rapid rates he was treated with IV diltiazem and apparently dose of carvedilol, he had some transient hypotension but ultimately did convert to sinus rhythm earlier this morning. At the time of my evaluation, patient was asymptomatic and hemodynamically stable and remains in sinus rhythm. He was anxious to return home as his 14-year-old dog is dying of cancer. Allergies Allergy/AdvReac Type Severity Reaction Status Date / Time prasugrel Allergy Severe RASH Verified 11/15/22 10:47 clopidogrel Allergy Unknown rash Verified 11/15/22 10:47 nitroglycerin AdvReac Unknown HEADACHE Verified 11/15/22 10:47 oxycodone AdvReac Unknown UPSET Verified 11/15/22 10:47 STOMACH Home Medications Medication Instructions Recorded Confirmed Type aspirin 81 mg tablet,delayed 81 mg PO DAILY 06/24/18 11/15/22 History release (Adult Aspirin Regimen) cholecalciferol (vitamin D3) 50 2,000 units PO DAILY 06/24/18 11/15/22 History mcg (2,000 unit) capsule coenzyme Q10 100 mg capsule 100 mg PO BID 03/08/19 11/15/22 History nitroglycerin 0.4 mg sublingual 0.4 mg sublingual Q5M PRN chest 11/02/19 11/15/22 History tablet pain pen needle, diabetic 31 gauge x #100 ea 10/04/21 11/15/22 Rx 3/16" (BD Ultra-Fine Mini Pen Needle) insulin glargine 100 unit/mL (3 45 unit (0.45 mL) subcut HS #45 mL 11/14/21 Rx mL) subcutaneous pen (Basaglar KwikPen U-100 Insulin) atorvastatin 80 mg tablet (Lipitor) 80 mg PO DAILY #90 tabs 02/08/22 11/15/22 Rx metformin 1,000 mg tablet 1,000 mg PO BID #180 tabs 06/25/22 11/15/22 Rx dulaglutide 3 mg/0.5 mL 3 mg (0.5 mL) subcut .COMPLEX #2 mL 07/20/22 11/15/22 Rx subcutaneous pen injector (Trulicity) metoprolol succinate 100 mg 100 mg PO .COMPLEX #270 tabs 08/15/22 11/15/22 Rx tablet,extended release 24 hr apixaban 5 mg tablet (Eliquis) 5 mg PO BID #180 tabs 08/27/22 11/15/22 Rx methylprednisolone 2 mg tablet 2 mg PO DAILY #90 tabs 09/25/22 11/15/22 Rx prednisone 10 mg tablets in a dose 10 mg PO UD #1 packet 11/13/22 11/15/22 Rx pack Patient History Medical History Antiplatelet or antithrombotic long-term use Asthma Barretts esophagus Edwards's palsy CAD (coronary artery disease) CAD (coronary artery disease), [place] coronary artery Cardiomyopathy Cataract Chest pain Chronic anticoagulation Chronic back pain Congestion of nasal sinus Coronary stent patent Cough Diabetes Dyslipidemia Fibromyalgia Fibromyalgia GERD without esophagitis History of Lyme disease HTN (hypertension) Hyperlipidemia Hypertension IDDM (insulin dependent diabetes mellitus) Left rotator cuff tear Lumbar facet joint syndrome Lumbar postlaminectomy syndrome Lumbar radiculopathy Myofascial pain Neck pain Paroxysmal atrial fibrillation PMR (polymyalgia rheumatica) Right shoulder pain Sore throat Spinal stenosis of lumbar region Sternal pain Strain of right biceps Surgical History History of back surgery History of repair of rotator cuff S/P coronary artery stent placement Status post angioplasty with stent (2018) 2 stents RCA 2007, 4 stents LAD 2011, 1 stent circumflex later 2011, LAD stent 2013 Family History Grandmother Breast cancer Uncle Colorectal cancer Myocardial infarction Brother Colorectal cancer Father Myocardial infarction Denies family history of Ovarian cancer Prostate cancer Diabetes Social History Smoking Status: Current some day smoker Tobacco Type: Cigars Cigarettes Per Day: 1 every day; Second Hand Exposure: No; Do You Dip or Chew Tobacco: No; Tobacco Cessation Education Requested by Patient: No Hx Alcohol Use: No Hx Substance Use: No Preferred Language: Colombian Communication Ability: Effective Hearing Ability: Hard of Hearing Fish Machine Feeder Required: No Beliefs That Will Affect Care: None marital status: Current Living Situation: Spouse current occupational status: retired How many Children do You have: 2 Other Information That Helps Us Care for You: No Feels Safe at Home: Yes Safety Concerns: Feels Safe At This Time Childhood Exposure to Second-Hand Smoke: No caffeine: Yes (TEA) Dental Care, Regularly: No Physical Activity Frequency: 3-4 Times per Week Seatbelt Use: always Sunscreen Use: No Assistive Devices: None Physical Exam Physical Exam: No distress. BP normotensive. Pulse 70 bpm and regular. Skin: no ecchymoses or generalized lesions. HEENT: unremarkable. Neck: no JVD or carotid bruits. Lungs: clear. Cardiac: regular rhythm, normal S1 and S2, no murmur or gallop. Abdomen: benign. Extremities: no edema, pulses intact. Neurologic: normal affect and conversation, nonfocal. Results & Data ([facility]) Laboratory Results Troponin value was 7.3, 108, 135, 175. Normal electrolytes, BUN 26, creatinine 1.03. Diagnostic Findings Initial ECG showed atrial fibrillation with ventricular rate 138 bpm and nonspecific T wave abnormality laterally. ECG today showed sinus rhythm at 77 bpm and was unremarkable. Chest x-ray showed no acute process. PG Care Time/CCT Total # of Minutes Spent Total Time Spent with Patient: Total time spent is greater than 50% in coordination of care (as documented) at patient's floor/unit and/or counseling patient: Coding Level of Care Code INP/OBS CONSULT LVL 4, 60 MIN Diagnoses Atrial fibrillation with rapid ventricular response I48.91 Chest pain R07.9 Demand ischemia I24.8 CAD (coronary artery disease) I25.10
--- NOTE | 2022-11-16 14:32 | Pharmacy Report ---
Pharmacy Glycemic Short Note 2 - Date of Service November 16, 2022 - Glycemic Short BSG Results (Last 24 hours): 11/15/22 11/15/22 11/16/22 19:50 23:03 00:29 Glucose 714 H* POC Glucose 389 H* 307 H* 11/16/22 11/16/22 11/16/22 03:52 07:46 11:19 Glucose 128 H POC Glucose 101 H 139 H OUTPATIENT ANTIDIABETIC REGIMEN: * Lantus 45 units HS * metformin 1000 mg PO BID * Trulicity 3 mg on Sundays * HbA1C = 10.7% (11/16/22) ASSESSMENT: * Mr Andria is a 66 y/o M with a PMH of T2DM who presents with chest pain. BSG on admission was 307 mg/dL but patient was also on prednisone 60 mg at home. * Patient received 45 units of Lantus + 10 units of Novolog and BSG at midnight was 128 mg/dL. * Fasting today is 101 mg/dL. Lunch 139 mg/dL. * For Lantus, will reduce by 25% to 32 units nightly since fasting is below goal range. * For steroid use, will give NPH 20 units SQ for today (0.25 units/kg). Typically, for prednisone 40 mg daily, 0.4 units/kg of NPH would be given; however, patient received a large Lantus dose yesterday. Expect effects from that to last throughout the evening. * Novolog weight-based stress of 3 for steroids. PLAN FOR INPATIENT GLYCEMIC CONTROL: * Hold outpatient oral diabetes medications * Basal insulin * Lantus 32 units SQ HS * Bolus insulin * NovoLog per scale ACHS or Q6hrs while NPO * Goal Range: Low 110 mg/dL - High 140 mg/dL * Correction Factor: 25 mg/dL/unit * Nutritional / Prandial insulin per carb ratio of 1 unit per 7 grams CHO consumed
--- NOTE | 2022-11-16 16:12 | Discharge Summary ---
Date of Service November 16, 2022 Admission HPI Per Admitting Provider Juan Ayers is a 66yo male with longstanding history of CAD with multiple stents in place, Paroxysmal atrial fibrillation on Eliquis anticoagulation presenting with chest tightness. Patient had a brief episode of chest discomfort last night which resolved after several moments. Tonight he was sitting in his recliner chair around 19:00 when he had a sudden onset of left sided chest and arm pain. He had some associated dizziness and lightheadedness as well. He reports that the pain felt like his prior AL Of note, patient was moving lumber yesterday. His chest pain is somewhat reproducible on exam. He was seen by Cardiology earlier today in clinic but was not having any chest symptoms at that time In the ER he is afebrile, AF with elevated rate of 136 - given Cardizem 20mg IV x 2 doses with improvement in HR Found to be hyperglycemic with BSG of 714 Recently started on a steroid taper x 14 days by Orthopedics for left shoulder pain Presently without chest pain No additional complaints at this time. Patient with no additional complaints. Denies REARDON, visual changes, cough, SOB, abdominal pain, nausea, vomiting, diarrhea or constipation ER Course: Diltiazem 20mg IV x 2 doses Insulin 16u SQ Principal Diagnosis chest pain, afib Discharge Exam The patient is awake, alert and oriented 3, well developed and well nourished, normocephalic and atraumatic, lying in bed and in no acute distress. HEENT--PERRL, EOMI, mucous membranes and oropharynx mildly dry Neck--supple. No JVD. No bruits. Thyroid normal, trachea midline, no adenopathy. Heart--normal S1 and S2. No murmurs, rubs or gallops. Lungs--clear bilaterally, no respiratory distress, no accessory muscle use. Abdomen--normal bowel sounds and soft. Mild epigastric and left sided abdominal pain Extremities--no cyanosis or clubbing. No edema. Dermatologic--normal skin turgor, normal color, no abnormal lymph nodes, no rash. Neurologic--cranial nerves II through XII grossly intact. Rheumatologic--normal range of motion. Psychiatric--normal affect. Discharge Data Allergies Allergy/AdvReac Type Severity Reaction Status Date / Time prasugrel Allergy Severe RASH Verified 11/15/22 10:47 clopidogrel Allergy Unknown rash Verified 11/15/22 10:47 nitroglycerin AdvReac Unknown HEADACHE Verified 11/15/22 10:47 oxycodone AdvReac Unknown UPSET Verified 11/15/22 10:47 STOMACH Consultations 11/15/22 21:54 ED Decision to Admit Stat 11/16/22 08:28 Consult Cardiology Routine Hospital Course (1) Chest pain: 66yo male with history of CAD with prior stent placement presenting with chest pain. Patient reports doing strenuous exercise the day prior - had some sharp chest pain that radiated down his left shoulder. [place] like his previous heart attack Patient also found to be in afib wrvr, initial trop was normal, but has been trending up He received Cardizem, bolus and infusion. His EKG now shows normal sinus rhythm His chest pain has resolved Will continue his Apixaban, Nitro, statin, Metoprolol, ASA and continue to trend trop Cardiology on consult (2) Elevated troponin: cardiac demand ischemia Most likely due to demand ischemia from rapid ventricular rate No ST changes on EKG will trend trops (3) Hyperglycemia: Poorly controlled Type 2 DM, Last KaiG1Q=0.8 on 07/19/22 Elevated blood sugar upon arrival at 714. Probably worsened by recent steroid injection for shoulder pain He was given insulin and strted on sliding scale Patient is on Metformin, Dulaglutide and Insulin 45u daily at home (4) Atrial fibrillation with rapid ventricular response: Paroxysmal Afib. Now in sinus Patient is on anticoagulation with Apixaban Continue Metoprolol, changed to 200mg BID on discharge Continue Apixaban (5) Hypertension: BP under good control (6) PMR (polymyalgia rheumatica): Patient is on daily Methylprednisolone 2mg. Recently started on Prednisone 60mg taper -Hold Solumedrol for now -Complete Prednisone taper -Resume home Solumedrol after completion of the Prednisone taper (7) Hypercholesterolemia: -Continue Atorvastatin Plan Ppx - Continue apixaban Code - Full Total Time Total Time Spent Total Time Spent (In Minutes): 35 Discharge Plan Discharge Items Patient Disposition: Home - Self-Care Reason For Visit: CHEST PAIN, ELEVATED BLOOD SUGAR Discharge Diagnosis: chest pain, afib wrvr Activity: Resume your previous activity Non-emergency contact: Primary Care Provider and Magazine Editor Call non-emergency contact if: you have any medication questions and your symptoms worsen Follow-up/Referrals: Chiara De Jesus MD [Primary Care Provider] - Diet: Regular Addtl Attending Provider Instructions: please make appointment to follow up with your courtesy driver Pending Studies at Discharge: No Stand-Alone Forms: [facility], Smoking Cessation Medications and DC Order Prescriptions: New metoprolol succinate 50 mg Tablet Extended Release 24 Hr 100 mg PO HS 30 Days Qty: 60 0RF metoprolol succinate 200 mg capsule,sprinkle,ER 24hr 200 mg PO BID Qty: 60 0RF Continued aspirin [Adult Aspirin Regimen] 81 mg tablet,delayed release (DR/EC) 81 mg PO DAILY cholecalciferol (vitamin D3) 2,000 unit capsule 2,000 units PO DAILY coenzyme Q10 100 mg capsule 100 mg PO BID (DME) pen needle, diabetic [BD Ultra-Fine Mini Pen Needle] 31 gauge x 3/16" needle See Rx Instructions .Route Qty: 100 5RF Rx Instructions: As directed atorvastatin [Lipitor] 80 mg tablet 80 mg PO DAILY Qty: 90 3RF metformin 1,000 mg tablet 1,000 mg PO BID Qty: 180 1RF Trulicity 3 mg/0.5 mL pen injector 3 mg subcut .COMPLEX Qty: 2 5RF Rx Instructions: 3 mg subcutaneously once weekly, takes on Saturday Eliquis 5 mg tablet 5 mg PO BID Qty: 180 3RF methylprednisolone 2 mg tablet 2 mg PO DAILY Qty: 90 1RF Basaglar KwikPen U-100 Insulin 100 unit/mL (3 mL) insulin pen 45 unit SQ HS Qty: 45 3RF prednisone 10 mg tablets,dose pack 10 mg PO UD Qty: 1 0RF Rx Instructions: 12 day pack Use as directed nitroglycerin 0.4 mg tablet, sublingual 0.4 mg sublingual Q5M PRN (Reason: chest pain) Discontinued metoprolol succinate 100 mg tablet extended release 24 hr 100 mg PO .COMPLEX Qty: 270 3RF Rx Instructions: 100 mg orally - Take 2 Tablets in the AM and 1 tablet in the PM.; Discharge Orders: Discharge Order (Routine); Ordered 11/16/22 Ordered By: Fabián Glaser Admission Data Admit Date/Time: 11/15/22 22:55 Attending Provider: Fabián Glaser Admit Provider: Ana Stroud Primary Care Provider: Chiara De Jesus Other Providers: Ana Stroud ; Satnam Houston Coding Level of Care Code HOSP INP/OBS DISCH >30 MIN Diagnoses Chest pain R07.9 Elevated troponin R77.8 Hyperglycemia R73.9 Atrial fibrillation with rapid ventricular response I48.91 Hypertension I10 PMR (polymyalgia rheumatica) M35.3 Hypercholesterolemia E78.00 Time Spent (min) 35
--- NOTE | 2022-11-16 17:15 | Electrocardiogram Report ---
Test Reason : Blood Pressure : / mmHG Vent. Rate : 077 BPM Atrial Rate : 077 BPM P-R Int : 148 ms QRS Dur : 086 ms QT Int : 368 ms P-R-T Axes : 044 011 062 degrees QTc Int : 416 ms Poor data quality, interpretation may be adversely affected Normal sinus rhythm Normal ECG When compared with ECG of 15-NOV-2022 19:39, Sinus rhythm has replaced Atrial fibrillation Vent. rate has decreased BY 61 BPM Nonspecific T wave abnormality, improved in Lateral leads Confirmed by Satnam Houston ([id number]) on 11/16/2022 5:15:22 PM Referred By: REFERRED SELF Confirmed By:Satnam Houston
== END 2022-11-16 17:16 | disposition home or self-care (01) | DRG 309 ==
LOC: ED 19:32 → 2N 22:55 → INTOOBSV 22:55 → SUATTDRO 22:55 → 2N 23:31 → 2S 11-16 08:16